=== PATIENT | female | born 1935 | race Caucasian/White ===

== ENCOUNTER 2017-01-09 20:20 | Inpatient (IN) | payer MEDICARE ==
[~2017-01-09] VITALS: Ht 160 cm; Wt 72.6 kg
--- NOTE | 2017-01-09 10:25 | NUR ---
Admission Note: Patient arrived on unit via EMS from [facility] ER. Report received from Osmani BOWERS. Patient is calm upon arrival. Vital signs T 97.5, BP 136/83, P 77 RR 18 Sp02 96% on RA. Patient is Alert and oriented to Self only. Patient denies behavior that happened at previous facility, kicking, spitting, eloping. Patient believes it is July 2001. This nurse and POWER TRANSFORMER INSPECTOR staff changed patient into hospital gown. 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 This nurse and POWER TRANSFORMER INSPECTOR offered patient food and drink, declined by patient. Patient oriented to environment and schedule. Helped patient back to bed, bed alarm activated, non slip socks in place. Dr. Martino notified of Admission. Will continue to monitor.
[2017-01-09 21:10] LABS: BASO # 0.1 x10^3/uL (0.0-0.2); BASO % 1 % (0-3); EOS # 0.2 x10^3/uL (0.0-0.7); EOS % 3 % (0-3); HEMATOCRIT 32.9 % (39.0-53.0); HEMOGLOBIN 10.7 g/dL (13.0-17.5); LYMPH # 1.1 x10^3/uL (1.0-4.8); LYMPH % 20 % (24-48); MEAN CORPUSCULAR HEMOGLOBIN 30 pg (25-35); MEAN CORPUSCULAR HGB CONC 33 g/dL (31-37); MEAN CORPUSCULAR VOLUME 91 fL (79-100); MONO # 1.1 x10^3/uL (0.0-1.1); MONO % 19 % (0-9); NEUT # 3.3 x10^3uL (1.8-7.7); NEUT % 58 % (31-73); PLATELET COUNT 198 x10^3/uL (140-400); RED BLOOD COUNT 3.63 x10^6/uL (4.30-5.70); WHITE BLOOD COUNT 5.8 x10^3/uL (4.0-11.0)
[2017-01-09 21:19] LABS: BACTERIA,URINE 0 /HPF (0-FEW); BILIRUBIN,URINE NEG (NEG); CLARITY,URINE HAZY; COLOR,URINE YELLOW; GLUCOSE,URINE NEG (NEG); NITRITE,URINE NEG (NEG); SQUAMOUS EPITHELIAL CELL,UR MANY /LPF; UROBILINOGEN,URINE 1 mg/dL (0.2 mg/dL)
[2017-01-09 21:20] LABS: HYALINE CASTS, URINE MANY /HPF
[2017-01-09 21:21] LABS: ALBUMIN 3.8 g/dL (3.4-5.0); ALBUMIN/GLOBULIN RATIO 0.8 (1.0-1.7); CALCIUM 8.9 mg/dL (8.5-10.1); GFR 32.4; MAGNESIUM 1.9 mg/dL (1.8-2.4); POTASSIUM 3.7 mmol/L (3.5-5.1); TOTAL BILIRUBIN 0.5 mg/dL (0.2-1.0); TOTAL PROTEIN 8.5 g/dL (6.4-8.2)
[2017-01-09] MEDS ORDERED: CYAN10005 PO (21:29)
[2017-01-09] MEDS ORDERED: DONE5TAB14 PO (21:29)
[2017-01-09] MEDS ORDERED: FURO40TA4 PO (21:30)
[2017-01-09] MEDS ORDERED: LEVO100T5 PO (21:32)
[2017-01-09] MEDS ORDERED: AMLO5TAB4 PO (21:44)
[2017-01-09] MEDS ORDERED: POLY255P PO (21:44)
[2017-01-09] MEDS ORDERED: POTA10TA5 PO (21:44)
[2017-01-09] MEDS ORDERED: OLAN5TAB5 PO (21:48)
[2017-01-09] MEDS ORDERED: HALO0.5T PO (21:48)
--- NOTE | 2017-01-09 23:00 | NUR ---
Behavior Intervention Response and Plan: BIRP Note: Behavior: Assumed Care of patient, patient located in Patient Room at shift change. Patient exhibited the following behavior Calm, Disorganized, Compliant. Brief assessment on rounds of vital signs, medication needs, lab studies, and pain. Treatment plan problems . Intervention: Patient assessed and the following interventions initiated safety checks 15 Minute Checks Cognitive Assessment , Head to toe Assessment , Medications. Response: After interactions and interventions patient responded in the following manner, Cooperative , Interactive ,Able to Focus on Task. Continue to assess behaviors and condition will continue to monitor throughout the shift as needed. Patient educated on ADL's, and hand hygiene. 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 Continue to assess patient for changes in above assessment. Monitor for medication needs, pain, and safety concerns. Hourly rounding performed to ensure safe environment.
[2017-01-09 23:34] VITALS: BP 136/83
--- NOTE | 2017-01-10 00:50 | EKG ---
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
--- NOTE | 2017-01-10 02:33 | NUR ---
Call recieved from Dr. Ojeda reguarding patients QTc. Dr. Ojeda reported to this nurse QTc was 524. Patient is also dehydrated and on several medications that can cause prolonged QT. Will notify this am.
--- NOTE | 2017-01-10 02:37 | PHYS DOC ---
Past History Past Medical History: Anemia, Arthritis, Constipation, CVA, Dementia, Heart Disease, Hypertension, TIA, Other Past Surgical History: Other Alcohol Use: None Drug Use: None Adult General Chief Complaint Chief Complaint: PSYCH EVALUATION HPI HPI Patient is a 81 year old female who presents for medical clearance for psychiatric admission. The patient is transferred from group home where she has made repeated attempts to run away, has been physically aggressive toward staff. She has no complaints here. She denies headache, vision changes, chest pain, shortness of breath, abdominal pain, nausea, vomiting, diarrhea, dysuria, extremity numbness/weakness. There is no history of trauma. Review of Systems Review of Systems Constitutional: Denies fever or chills Eyes: Denies change in visual acuity HENT: Denies nasal congestion or sore throat Respiratory: Denies cough or shortness of breath Cardiovascular: Denies chest pain or edema GI: Denies abdominal pain, nausea, vomiting, bloody stools or diarrhea : Denies dysuria or hematuria Musculoskeletal: Denies back pain or joint pain Integument: Denies rash or skin lesions Neurologic: Denies headache, focal weakness or sensory changes Psychiatric: reports aggression Allergies Allergies Allergies Coded Allergies Type Severity Reaction Last Updated Verified ibuprofen Allergy Unknown 01/09/17 Yes Physical Exam Physical Exam Constitutional: Well developed, well nourished, no acute distress, non-toxic appearance. HENT: Normocephalic, atraumatic, bilateral external ears normal, oropharynx moist, nose normal. Eyes: PERRLA, EOMI, conjunctiva normal, no discharge. Neck: supple, no stridor. Cardiovascular: RRR, no murmurs, no edema. Lungs & Thorax: LCTAB, no wheezing, no respiratory distress. Abdomen: soft, nontender, nondistended. Skin: Warm, dry, no erythema, no rash. Back: No tenderness. Extremities: No tenderness, no edema. Neurologic: Alert and oriented X 3, no facial droop, symmetric strength/ sensation to upper & lower extremities, no focal deficits noted. Psychologic: Affect normal, judgement normal, mood normal. Current Patient Data Vital Signs Vital Signs Date Time Temp Pulse Resp B/P (MAP) Pulse Ox O2 Delivery O2 Flow Rate FiO2 01/09/17 23:34 97.5 77 18 136/83 (100) 96 Room Air Lab Results Laboratory Tests Test 01/09/17 20:30 01/09/17 20:45 Urine Collection Type Unknown Urine Color Yellow Urine Clarity Hazy Urine pH 5.0 Urine Specific [place] 1.010 Urine Protein 30 mg/dl (NEG-TRACE) Urine Glucose (UA) Neg mg/dL (NEG) Urine Ketones (Stick) Neg mg/dL (NEG) Urine Blood Trace (NEG) Urine Nitrite Neg (NEG) Urine Bilirubin Neg (NEG) Urine Urobilinogen Dipstick 1 mg/dL (0.2 mg/dL) Urine Leukocyte Esterase Neg (NEG) Urine RBC 1-2 /HPF (0-2) Urine WBC 1-4 /HPF (0-4) Urine Squamous Epithelial Cells Many /LPF Urine Bacteria 0 /HPF (0-FEW) Urine Hyaline Casts Many /HPF Urine Mucus Marked /LPF White Blood Count 5.8 x10^3/uL (4.0-11.0) Red Blood Count 3.63 x10^6/uL (4.30-5.70) L Hemoglobin 10.7 g/dL (13.0-17.5) L Hematocrit 32.9 % (39.0-53.0) L Mean Corpuscular Volume 91 fL (79-100) Mean Corpuscular Hemoglobin 30 pg (25-35) Mean Corpuscular Hemoglobin Concent 33 g/dL (31-37) Red Cell Distribution Width 14.0 % (11.5-14.5) Platelet Count 198 x10^3/uL (140-400) Neutrophils (%) (Auto) 58 % (31-73) Lymphocytes (%) (Auto) 20 % (24-48) L Monocytes (%) (Auto) 19 % (0-9) H Eosinophils (%) (Auto) 3 % (0-3) Basophils (%) (Auto) 1 % (0-3) Neutrophils # (Auto) 3.3 x10^3uL (1.8-7.7) Lymphocytes # (Auto) 1.1 x10^3/uL (1.0-4.8) Monocytes # (Auto) 1.1 x10^3/uL (0.0-1.1) Eosinophils # (Auto) 0.2 x10^3/uL (0.0-0.7) Basophils # (Auto) 0.1 x10^3/uL (0.0-0.2) Sodium Level 141 mmol/L (136-145) Potassium Level 3.7 mmol/L (3.5-5.1) Chloride Level 100 mmol/L (98-107) Carbon Dioxide Level 29 mmol/L (21-32) Anion Gap 12 (6-14) Blood Urea Nitrogen 34 mg/dL (8-26) H Creatinine 2.0 mg/dL (0.7-1.3) H Estimated GFR (Cockcroft-Gault) 32.4 BUN/Creatinine Ratio 17 (6-20) Glucose Level 112 mg/dL (70-99) H Calcium Level 8.9 mg/dL (8.5-10.1) Magnesium Level 1.9 mg/dL (1.8-2.4) Total Bilirubin 0.5 mg/dL (0.2-1.0) Aspartate Amino Transferase (AST) 38 U/L (15-37) H Alanine Aminotransferase (ALT) 42 U/L (16-63) Alkaline Phosphatase 84 U/L (46-116) Total Protein 8.5 g/dL (6.4-8.2) H Albumin 3.8 g/dL (3.4-5.0) Albumin/Globulin Ratio 0.8 (1.0-1.7) L EKG EKG interpreted by me: NSR rate 78, no acute ST/T wave changes, Qtc prolonged 524 ms otherwise normal intervals, no ectopy.[] Radiology/Procedures Radiology/Procedures [] Course & Med Decision Making Course & Med Decision Making Pertinent Labs and Imaging studies reviewed. (See chart for details) The patient presents for medical clearance for psychiatric evaluation. She had creatinine of 2.0 without previous value available for comparison, otherwise no significant abnormality. She is being transferred to psychiatric unit in stable condition. I did communicate with the nurse on the unit regarding prolonged QT interval so she can notify the treating physician & this can be considered when prescribing medications. [] Dragon Disclaimer Dragon Disclaimer This chart was dictated in whole or in part using Voice Recognition software in a busy, high-work load, and often noisy Emergency Department environment. It may contain unintended and wholly unrecognized errors or omissions. Departure Departure: Impression: Primary Impression: Mental health disorder Disposition: 65 XFER TO PSYCH HOSP/UNIT Condition: STABLE DEMETRIUS ARREDONDO MD Jan 10, 2017 02:37
[2017-01-10 06:12] VITALS: BP 114/67
[2017-01-10] MEDS ORDERED: MULT1TAB52 PO (06:18)
[2017-01-10] MEDS: POTASSIUM CHLORIDE 10 MEQ TABLET.ER. PO SCH (08:07)
[2017-01-10] MEDS: MULTIVITAMIN with MINERAL TABLET. PO SCH (08:07)
[2017-01-10] MEDS: FUROSEMIDE 20 MG TABLET PO SCH (08:07)
[2017-01-10] MEDS: CYANOCOBALAMIN (VITAMIN B-12) 1,000 MCG TABLET. PO SCH (08:07)
[2017-01-10] MEDS: LEVOTHYROXINE 100 MCG TABLET PO SCH (08:07)
[2017-01-10] MEDS: POLYETHYLENE GLYCOL 3350 17 GM PACKET. PO SCH (08:08)
[2017-01-10] MEDS: amLODIPine BESYLATE 5 MG TABLET PO SCH (08:08)
--- NOTE | 2017-01-10 09:30 | NUR ---
THERAPEUTIC RECREATION GROUP NOTE TITLE :Fall Critter Painting ACTIVITY : Arts/ Crafts GOAL : Increase socialization, fine motor skills, creativity DURATION : 90 Minutes RESPONSE : Full participation. Pt. worked independently and was mostly quiet. She took breaks throughout and towards the end, she left without completing or with notice.
--- NOTE | 2017-01-10 09:40 | NUR ---
Behavior Intervention Response and Plan: BIRP Note: Behavior: Assumed Care of patient, patient located in Day Room at shift change. Patient exhibited the following behavior Interactive, Withdrawn, Disorganized. Brief assessment on rounds of vital signs, medication needs, lab studies, and pain. Treatment plan problems 1 & 2. Intervention: Patient assessed and the following interventions initiated safety checks 15 Minute Checks Cognitive Assessment , Head to toe Assessment , Medications. Response: After interactions and interventions patient responded in the following manner, Calm , Appropriate ,Compliant. Continue to assess behaviors and condition will continue to monitor throughout the shift as needed. Patient educated on ADL's, and hand hygiene. 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 Continue to assess patient for changes in above assessment. Monitor for medication needs, pain, and safety concerns. Hourly rounding performed to ensure safe environment.
--- NOTE | 2017-01-10 10:40 | NUR ---
Psychosocial Assessment completed w/PT's , Lars. Pt. was born and raised in [place] w/1 younger sister. No major trauma during childhood, no family history of alcohol/substance abuse or Dementia or other MHI. Pt. completed HS and Lars. They have 6 children: Maria Luisa, Vinh, Socrates, Dolores, Denis, and Yoni. 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 Pt. suffered from Breast Cancer in 2001 and then again in 2008. Pt. has suffered other major medical issues include several mini strokes and falls recently. Pt. was diagnosed w/Dementia 2 years ago and has resided at home w/her until recently. Pt's falls have led to Pts' admit to a skilled facility as Pt's can not physically care for Pt. during falls. Pt. will require placement at dc due to PT's continued decline. Pt. will need a [place] CARE completed by this SW and Pt's will begin working on a [place] Medicaid form. GOALS: Pt. states she wants to go home. Pt's 's goal is for her to transition to a LTCF. 1. Caring 2. Family support
--- NOTE | 2017-01-10 10:45 | NUR ---
SW reviewed Pt. insurance upon admit. Face sheet, CSNAP and Intake state Pt. has Medicare A, B, and No Part C. No auth required.
--- NOTE | 2017-01-10 11:30 | NUR ---
THERAPEUTIC RECREATION GROUP NOTE TITLE :Movement to Music: Flexibility ACTIVITY : Movement/ Exercise GOAL : Increase morale, attention, flexibility. Decrease stress/anxiety. DURATION : 30 Minutes RESPONSE : No participation
--- NOTE | 2017-01-10 14:30 | NUR ---
THERAPEUTIC RECREATION GROUP NOTE TITLE :Seasonal/ Holiday Leisure ACTIVITY : Leisure Education GOAL : Increase knowledge of leisure activities DURATION : 45 minutes RESPONSE : No participation
[2017-01-10 16:23] VITALS: BP 123/68
--- NOTE | 2017-01-10 20:00 | PDOC ---
Exam Liborio Demential Exam: Liborio Note: Please also refer to the separate dictated note~for this date of service dictated separately.~Patient seen individually. Discussed the patient with Nursing staff reviewed the chart.~Reviewed interim history and current functioning. Reviewed vital signs,~Labs/ Radiology~and current medications noted below. Continue current treatment with the changes noted in the dictated addendum note Assessment: Vital Signs: Vital Signs Date Time Temp Pulse Resp B/P (MAP) Pulse Ox O2 Delivery O2 Flow Rate FiO2 01/10/17 16:23 97.6 74 18 123/68 (86) 97 01/09/17 23:34 Room Air I&O Intake and Output 01/11/17 07:00 Intake Total 480 ml Balance 480 ml Intake Oral 480 ml Labs: Laboratory Tests Test 01/09/17 20:30 01/09/17 20:45 Urine Collection Type Unknown Urine Color Yellow Urine Clarity Hazy Urine pH 5.0 Urine Specific [place] 1.010 Urine Protein 30 mg/dl (NEG-TRACE) Urine Glucose (UA) Neg mg/dL (NEG) Urine Ketones (Stick) Neg mg/dL (NEG) Urine Blood Trace (NEG) Urine Nitrite Neg (NEG) Urine Bilirubin Neg (NEG) Urine Urobilinogen Dipstick 1 mg/dL (0.2 mg/dL) Urine Leukocyte Esterase Neg (NEG) Urine RBC 1-2 /HPF (0-2) Urine WBC 1-4 /HPF (0-4) Urine Squamous Epithelial Cells Many /LPF Urine Bacteria 0 /HPF (0-FEW) Urine Hyaline Casts Many /HPF Urine Mucus Marked /LPF White Blood Count 5.8 x10^3/uL (4.0-11.0) Red Blood Count 3.63 x10^6/uL (4.30-5.70) L Hemoglobin 10.7 g/dL (13.0-17.5) L Hematocrit 32.9 % (39.0-53.0) L Mean Corpuscular Volume 91 fL (79-100) Mean Corpuscular Hemoglobin 30 pg (25-35) Mean Corpuscular Hemoglobin Concent 33 g/dL (31-37) Red Cell Distribution Width 14.0 % (11.5-14.5) Platelet Count 198 x10^3/uL (140-400) Neutrophils (%) (Auto) 58 % (31-73) Lymphocytes (%) (Auto) 20 % (24-48) L Monocytes (%) (Auto) 19 % (0-9) H Eosinophils (%) (Auto) 3 % (0-3) Basophils (%) (Auto) 1 % (0-3) Neutrophils # (Auto) 3.3 x10^3uL (1.8-7.7) Lymphocytes # (Auto) 1.1 x10^3/uL (1.0-4.8) Monocytes # (Auto) 1.1 x10^3/uL (0.0-1.1) Eosinophils # (Auto) 0.2 x10^3/uL (0.0-0.7) Basophils # (Auto) 0.1 x10^3/uL (0.0-0.2) Sodium Level 141 mmol/L (136-145) Potassium Level 3.7 mmol/L (3.5-5.1) Chloride Level 100 mmol/L (98-107) Carbon Dioxide Level 29 mmol/L (21-32) Anion Gap 12 (6-14) Blood Urea Nitrogen 34 mg/dL (8-26) H Creatinine 2.0 mg/dL (0.7-1.3) H Estimated GFR (Cockcroft-Gault) 32.4 BUN/Creatinine Ratio 17 (6-20) Glucose Level 112 mg/dL (70-99) H Calcium Level 8.9 mg/dL (8.5-10.1) Magnesium Level 1.9 mg/dL (1.8-2.4) Iron Level 36 ug/dL (65-175) L Total Iron Binding Capacity 191 ug/dL (250-450) L Iron Saturation 19 % (15-34) Total Bilirubin 0.5 mg/dL (0.2-1.0) Aspartate Amino Transferase (AST) 38 U/L (15-37) H Alanine Aminotransferase (ALT) 42 U/L (16-63) Alkaline Phosphatase 84 U/L (46-116) Total Protein 8.5 g/dL (6.4-8.2) H Albumin 3.8 g/dL (3.4-5.0) Albumin/Globulin Ratio 0.8 (1.0-1.7) L Vitamin B12 Level 936 pg/mL (247-911) H Current Medications: Meds: Current Medications Amlodipine Besylate (Norvasc) 5 mg DAILY PO Last administered on 01/10/17 08:08 ; Start 01/10/17 at 09:00 Cyanocobalamin (Vitamin B-12) 1,000 mcg DAILY PO Last administered on 01/10/17 08:07; Start 01/10/17 at 09:00 Furosemide (Lasix) 20 mg DAILY PO Last administered on 01/10/17 08:07; Start at 09:00 Levothyroxine Sodium (Synthroid) 100 mcg DAILYAC PO Last administered on 08:07; Start 01/10/17 at 08:00 Polyethylene Glycol (miraLAX) 17 gm DAILY PO Last administered on 01/10/17 08: 08; Start 01/10/17 at 09:00 Multivitamins/ Calcium (Thera-M Plus) 1 tab DAILY PO Last administered on 08:07; Start 01/10/17 at 09:00 Potassium Chloride (Klor-Con) 10 meq DAILYWBKFT PO Last administered on 08:07; Start 01/10/17 at 08:00 Olanzapine (ZyPREXA ZYDIS) 2.5 mg PRN Q2HR PRN PO ANXIETY / AGITATION; Start at 18:45 Donepezil HCl (Aricept) 10 mg DAILY PO ; Start 01/11/17 at 09:00 Active Scripts Active Reported Multivitamins (Multivitamin) 1 Each Tablet 1 Tab PO DAILY Zyprexa Zydis (Olanzapine) 5 Mg Tab.rapdis 2.5 Mg PO PRN Q2HR PRN Klor-Con 10 (Potassium Chloride) 10 Meq Tablet.er 1 Tab PO DAILY Polyethylene Glycol 3350 255 Gm Powder 17 Gm PO DAILY Norvasc (Amlodipine Besylate) 5 Mg Tablet 5 Mg PO BID Levothyroxine Sodium 100 Mcg Tablet 100 Mcg PO DAILYAC Furosemide 40 Mg Tablet 40 Mg PO DAILY Vitamin B-12 (Cyanocobalamin (Vitamin B-12)) 1,000 Mcg Tablet 1,000 Mcg PO DAILY Donepezil Hcl 5 Mg Tab.rapdis 5 Mg PO QHS Diagnosis: Problems: (1) Mental health disorder ARA VANCE MD Jan 10, 2017 20:00
--- NOTE | 2017-01-10 21:30 | NUR ---
Behavior Intervention Response and Plan: BIRP Note: Behavior: Assumed Care of patient, patient located in Patient Room at shift change. Patient exhibited the following behavior Calm, Disorganized, Compliant. Brief assessment on rounds of vital signs, medication needs, lab studies, and pain. Treatment plan problems . Intervention: Patient assessed and the following interventions initiated safety checks 15 Minute Checks Cognitive Assessment , Head to toe Assessment , Medications. Response: After interactions and interventions patient responded in the following manner, Cooperative , Interactive ,Able to Focus on Task. Continue to assess behaviors and condition will continue to monitor throughout the shift as needed. Patient educated on ADL's, and hand hygiene. 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 Continue to assess patient for changes in above assessment. Monitor for medication needs, pain, and safety concerns. Hourly rounding performed to ensure safe environment.
[2017-01-11 03:07] LABS: HEMOGLOBIN A1C 4.8 % (4.8-5.6)
[2017-01-11] MEDS: LEVOTHYROXINE 100 MCG TABLET PO SCH (05:33)
[2017-01-11 06:00] VITALS: BP 138/98
[2017-01-11] MEDS: DONEPEZIL HCL 10 MG TABLET PO SCH (08:04)
[2017-01-11] MEDS: FUROSEMIDE 20 MG TABLET PO SCH (08:04)
[2017-01-11] MEDS: amLODIPine BESYLATE 5 MG TABLET PO SCH (08:05)
[2017-01-11] MEDS: POTASSIUM CHLORIDE 10 MEQ TABLET.ER. PO SCH (08:05)
[2017-01-11] MEDS: POLYETHYLENE GLYCOL 3350 17 GM PACKET. PO SCH (08:05)
[2017-01-11] MEDS: MULTIVITAMIN with MINERAL TABLET. PO SCH (08:05)
[2017-01-11] MEDS: CYANOCOBALAMIN (VITAMIN B-12) 1,000 MCG TABLET. PO SCH (08:05)
--- NOTE | 2017-01-11 09:00 | NUR ---
Behavior Intervention Response and Plan: BIRP Note: Behavior: Assumed Care of patient, patient located in Dining Room at shift change. Patient exhibited the following behavior Disorganized, Withdrawn, Resistive. Brief assessment on rounds of vital signs, medication needs, lab studies, and pain. Treatment plan problems 1 & 2. Intervention: Patient assessed and the following interventions initiated safety checks 15 Minute Checks Cognitive Assessment , Head to toe Assessment , Medications. Response: After interactions and interventions patient responded in the following manner, Calm , Appropriate ,Compliant. Continue to assess behaviors and condition will continue to monitor throughout the shift as needed. Patient educated on ADL's, and hand hygiene. 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 Continue to assess patient for changes in above assessment. Monitor for medication needs, pain, and safety concerns. Hourly rounding performed to ensure safe environment.
--- NOTE | 2017-01-11 11:30 | NUR ---
THERAPEUTIC RECREATION GROUP NOTE TITLE :Movement to Music: Strength ACTIVITY : Movement/ Exercise GOAL : Increase morale, attention, flexibility. Decrease stress/anxiety. DURATION : 30 Minutes RESPONSE : Moderate participation. Pt. followed along with most of the moves, to the best of her ability. She was alert and quiet the entire time.
--- NOTE | 2017-01-11 11:38 | NUR ---
Bedside swallow evaluation completed: Pt. initially cooperative and alert. Pt. self regulates bite size to less than 1/2 tsp for all consistencies. Hyolaryngeal excursion min-mildly reduced via palpation for puree and assume other consistencies, however pt became agitated w/ ST touching her. No s/s aspiration noted w/ nectar thick liquids via cup, puree and soft solids but immediate throat clearing w/ trials of thin liquids via cup. Soft solid trials were inefficient w/ prolonged chewing, oral residue and VERY small bite trials as pt limits to approximately 1/4 tsp bites. Also pt appears to have strong preference for sweet foods/liquids. Impressions: Mild-moderate oropharyngeal dysphagia w/ known history of dysphagia and aspiration pneumonia form prior facility and hospital. Current diet of puree and nectar thick liquids appear safe as well as most efficient. Currently pt not a candidate for videoswallow as she refuses PO trials frequently, especially if not sweet and becomes agitated w/ requests to eat or drink items when not her initiative. Recommendations: 1. Dysphagia I diet w/ nectar liquids, no straws. 2. General swallow precautions 3. ST f/u for dysphagia
[2017-01-11] MEDS ORDERED: SERTRALINE 25 MG TABLET. PO SCH (12:00)
--- NOTE | 2017-01-11 12:13 | NUR ---
per Dr. Sloan the zoloft 25mg daily dose is to start 01/12 0900.
--- NOTE | 2017-01-11 14:03 | NUR ---
SW met w/Pt's , Lars, to help complete a [place] Medicaid form. SW copied applicable documents and encouraged Lars to check the documents required sheet to ensure he sent in all information.
--- NOTE | 2017-01-11 14:15 | NUR ---
THERAPEUTIC RECREATION GROUP NOTE TITLE :Music Bingo ACTIVITY : Music, Cognitive Stimulation GOAL : Increase socialization, elevate mood, stimulate memory, Maintain or improve cognitive functioning DURATION : 60 minutes RESPONSE : Moderate participation. Pt. joined the group about 15 minutes late. She sang along to the songs but needed prompting to place chips in the correct spot. She did not appear to show too much interest but she smiled often while singing.
[2017-01-11 16:02] VITALS: BP 128/74
[2017-01-11] MEDS: PRENATAL MULTIVITAMIN TABLET. PO SCH (17:04)
--- NOTE | 2017-01-11 18:14 | HP ---
ADMIT DATE: 01/10/2017 This is a late entry on 01/10/2017 and covers the elements not covered in my initial note 01/10/2017. The patient was seen in the evening of 01/10/2017 for this evaluation. IDENTIFYING DATA: The patient is a 81-year-old female referred to us from [facility] by her primary care physician on account of worsening confusion, agitation, attempting to elope from the facility, becoming aggressive towards staff, when redirected attempted to hit staff, scratching spitting uncooperative, refusing meals, demanding. She had failed outpatient psychiatric interventions, was even more confused, referred for inpatient psychiatric stabilization. CHIEF COMPLAINT: "I have been here 3 weeks." HISTORY OF PRESENT ILLNESS: The patient has a history of dementia, Alzheimer's vascular type. She has been at [facility] for a short time, but she has been getting increasingly confused, agitated, aggressive, uncooperative, unmanageable. She has failed outpatient psychiatric interventions. She has had some sleep and appetite changes. No active suicidal or homicidal ideation. No clear history of bipolar disorder. PAST PSYCHIATRIC HISTORY: Positive for major neurocognitive disorder, vascular with delusion, depression, behavioral disturbance. PAST MEDICAL HISTORY: History of TIA/CVA, hypertension, hyperlipidemia, chronic constipation, dysphagia, and vitamin deficiency, repeated falls, heart disease, anemia, osteoarthritis, fracture with the brain, elongated QTC interval. DIET: Pureed and nectar thick liquids. ALLERGIES: MOTRIN. CODE STATUS: She is a full code. FAMILY HISTORY: Noncontributory. SOCIAL HISTORY: No history of alcohol, drug abuse, physical, sexual or elder abuse. She is not found to be a perpetrator. REACTION TO HOSPITALIZATION: The patient oblivious of this given the dementia. ASSETS: Supportive family. Stable living at the above nursing facility, though she may need alternate placement. REVIEW OF SYSTEMS: No CV, , pulmonary, eye, ENT system symptoms on review. Reliability poor. Ambulation impaired, in wheelchair. MENTAL STATUS EXAMINATION: Oriented to herself. Insight, judgment, recent and remote memory, attention, concentration, fund of knowledge poor, consistent with her diagnosis mentioned in my initial note. LABORATORY DATA: Reviewed. IMPRESSION: Major neurocognitive disorder, Alzheimer, vascular with depression, delusion, behavioral disturbance; anxiety disorder, unspecified; impulse control disorder, unspecified. Rest as above. PLAN: Admit to the geropsychiatry unit at [facility]. I will see the patient daily individually from a psychiatric standpoint, medical followup per Dr. Martino/Dr. Hicks. May consider adding Zoloft as an antidepressant and antianxiety agent. Continue Aricept 10 mg a day, Zyprexa was added p.r.n. The patient's Haldol was stopped due to her prolonged QTc per Dr. Martino. We will make further adjustments in the psychotropics as clinically indicated. Repeat EKG to ensure QTC is unremarkable. MAN Sharif VANCE MD DR: HUMPHREY/stacy JOB#: [id number] / [id number]
--- NOTE | 2017-01-11 18:42 | HP ---
ADMIT DATE: 01/09/2017 This was a delayed history and physical due to the patient being in bed yesterday. REASON FOR ADMISSION TO SENIOR BEHAVIORAL UNIT: This is a 81-year-old female who came from [facility] where she had multiple episodes of elopement with aggressive violent behavior towards the staff and wanting to go home. She pulled the staff's hair and was uncooperative. Previous to going to [facility], she was at home. She was requiring on one-on-one and also received one time a Haldol injection. She was sent to the Emergency Room on 01/08/2017. PAST MEDICAL HISTORY: Repeated falls, constipation, anemia, hypertension, hyperlipidemia, hypothyroidism, history of TIAs, dysphagia, heart disease, osteoarthritis, neoplasm, hyperkalemia, compression fracture of vertebra, also obstructive sleep apnea, coronary artery disease, In the breast, she had had breast cancer and had a recent fall. FAMILY HISTORY: Positive for diabetes. PAST SURGICAL HISTORY: She had a thyroidectomy in 2010. SOCIAL HISTORY: She was never a smoker, never used alcohol, enjoys coffee. She is currently and was living at home prior to going to Rehabilitation. MEDICATIONS: Reviewed and are available on the MAR. REVIEW OF SYSTEMS: The patient denies any problems currently. OBJECTIVE: VITAL SIGNS: Blood pressure 123/68, temperature 97.6, pulse 74, respirations 18, pulse ox is 97% on room air. Height 63 inches, weight 160 pounds. GENERAL: A 81-year-old frail appearing female who is confined to a wheelchair. HEENT: Her hearing is normal. Her eyes are clear. Pupils are small. She can read without glasses, nose was patent. Throat clear, tongue midline. NECK: Supple, without adenopathy. Thyroid was not enlarged. LUNGS: Clear to auscultation. CARDIOVASCULAR: Regular rhythm and rate. ABDOMEN: Soft, nontender. EXTREMITIES: With some pedal edema. MUSCULOSKELETAL: She does not pass to get up and go test. NEUROLOGIC: She does have a tremor. Cranial nerves: She is able to cooperate. Could not get the reflexes. LABORATORY DATA: Reviewed from the hospital as well as she had a CT of the abdomen and pelvis showing nothing of consequence. CT head without contrast showing mild atrophy and white matter disease. Her EKG, she had a QTc of 524 but had recently had a Haldol injection. ASSESSMENT: 1. Dementia with behavior disturbance. 2. Obstructive sleep apnea. 3. Osteoarthritis. 4. Frequent falls. 5. History of coronary artery disease. 6. History of breast cancer. 7. Normochromic normocytic anemia. 8. Iron deficiency anemia. 9. Chronic kidney disease stage III. 10. Prolonged QTc. PLAN: Treat her medical conditions and follow along with Dr. Sloan, adding a vitamin with iron deficiency and also prolonged QTc. ANTONIO MUJICA DO DR: OMAR/stacy JOB#: [id number] / [id number]
--- NOTE | 2017-01-11 19:42 | PDOC ---
Exam Liborio Demential Exam: Liborio Note: Please also refer to the separate dictated note~for this date of service dictated separately.~Patient seen individually. Discussed the patient with Nursing staff reviewed the chart.~Reviewed interim history and current functioning. Reviewed vital signs,~Labs/ Radiology~and current medications noted below. Continue current treatment with the changes noted in the dictated addendum note Assessment: Vital Signs: Vital Signs Date Time Temp Pulse Resp B/P (MAP) Pulse Ox O2 Delivery O2 Flow Rate FiO2 01/11/17 16:02 97.6 75 20 128/74 (92) 96 01/09/17 23:34 Room Air I&O Intake and Output 01/12/17 07:00 Intake Total 960 ml Balance 960 ml Intake Oral 960 ml Current Medications: Meds: Current Medications Amlodipine Besylate (Norvasc) 5 mg DAILY PO Last administered on 01/11/17 08:05 ; Start 01/10/17 at 09:00 Cyanocobalamin (Vitamin B-12) 1,000 mcg DAILY PO Last administered on 01/11/17 08:05; Start 01/10/17 at 09:00 Furosemide (Lasix) 20 mg DAILY PO Last administered on 01/11/17 08:04; Start at 09:00 Levothyroxine Sodium (Synthroid) 100 mcg DAILYAC PO Last administered on 05:33; Start 01/10/17 at 08:00 Polyethylene Glycol (miraLAX) 17 gm DAILY PO Last administered on 01/11/17 08: 05; Start 01/10/17 at 09:00 Multivitamins/ Calcium (Thera-M Plus) 1 tab DAILY PO Last administered on 08:05; Start 01/10/17 at 09:00 Potassium Chloride (Klor-Con) 10 meq DAILYWBKFT PO Last administered on 08:05; Start 01/10/17 at 08:00 Olanzapine (ZyPREXA ZYDIS) 2.5 mg PRN Q2HR PRN PO ANXIETY / AGITATION; Start at 18:45 Donepezil HCl (Aricept) 10 mg DAILY PO Last administered on 01/11/17 08:04; Start 01/11/17 at 09:00 Sertraline HCl (Zoloft) 25 mg DAILY PO ; Start 01/11/17 at 12:00; Stop 01/11/17 at 12:13; Status DC Sertraline HCl (Zoloft) 25 mg DAILY PO ; Start 01/12/17 at 09:00 Prenat Multivit/ [place]/Iron/Folic Ac (Multivitamin ) 1 tab DAILYBFRSUP PO Last administered on 01/11/17t 17:04; Start 01/11/17 at 17:00 Active Scripts Active Reported Multivitamins (Multivitamin) 1 Each Tablet 1 Tab PO DAILY Zyprexa Zydis (Olanzapine) 5 Mg Tab.rapdis 2.5 Mg PO PRN Q2HR PRN Klor-Con 10 (Potassium Chloride) 10 Meq Tablet.er 1 Tab PO DAILY Polyethylene Glycol 3350 255 Gm Powder 17 Gm PO DAILY Norvasc (Amlodipine Besylate) 5 Mg Tablet 5 Mg PO BID Levothyroxine Sodium 100 Mcg Tablet 100 Mcg PO DAILYAC Furosemide 40 Mg Tablet 40 Mg PO DAILY Vitamin B-12 (Cyanocobalamin (Vitamin B-12)) 1,000 Mcg Tablet 1,000 Mcg PO DAILY Donepezil Hcl 5 Mg Tab.rapdis 5 Mg PO QHS Diagnosis: Problems: (1) Mental health disorder ARA VANCE MD Jan 11, 2017 19:42
--- NOTE | 2017-01-11 20:00 | NUR ---
Behavior Intervention Response and Plan: BIRP Note: Behavior: Assumed Care of patient, patient located in Day Room at shift change. Patient exhibited the following behavior Disorganized, Withdrawn, Cooperative. Brief assessment on rounds of vital signs, medication needs, lab studies, and pain. Treatment plan problems 1 & 2. Intervention: Patient assessed and the following interventions initiated safety checks 15 Minute Checks Cognitive Assessment , Head to toe Assessment , Medications. Response: After interactions and interventions patient responded in the following manner, Calm , Appropriate ,Compliant. Continue to assess behaviors and condition will continue to monitor throughout the shift as needed. Patient educated on ADL's, and hand hygiene. Plan: Continue to monitor Master Treatment Plan for patient's progress toward short term goals of Decreased Agitation, Decreased Aggression, long term care phlebotomist goals to return to previous living setting vs placement. Continue to assess patient for changes in above assessment. Monitor for medication needs, pain, and safety concerns. Hourly rounding performed to ensure safe environment.
[2017-01-12 06:01] VITALS: BP 125/79
[2017-01-12] MEDS: LEVOTHYROXINE 100 MCG TABLET PO SCH (07:35)
[2017-01-12] MEDS: CYANOCOBALAMIN (VITAMIN B-12) 1,000 MCG TABLET. PO SCH (07:35)
[2017-01-12] MEDS: MULTIVITAMIN with MINERAL TABLET. PO SCH (07:35)
[2017-01-12] MEDS: DONEPEZIL HCL 10 MG TABLET PO SCH (07:35)
[2017-01-12] MEDS: amLODIPine BESYLATE 5 MG TABLET PO SCH (07:36)
[2017-01-12] MEDS: POTASSIUM CHLORIDE 10 MEQ TABLET.ER. PO SCH (07:36)
[2017-01-12] MEDS: FUROSEMIDE 20 MG TABLET PO SCH (07:36)
[2017-01-12] MEDS: POLYETHYLENE GLYCOL 3350 17 GM PACKET. PO SCH (07:36)
[2017-01-12] MEDS: SERTRALINE 25 MG TABLET. PO SCH (07:37)
--- NOTE | 2017-01-12 09:00 | NUR ---
THERAPEUTIC RECREATION GROUP NOTE TITLE :Group Counting ACTIVITY : Activities and Games GOAL : Increase social interaction, communication. Maintain or improve mental functioning. Decrease restlessness DURATION : 60 minutes RESPONSE : No participation.
--- NOTE | 2017-01-12 09:00 | NUR ---
Behavior Intervention Response and Plan: BIRP Note: Behavior: Assumed Care of patient, patient located in Dining Room at shift change. Patient exhibited the following behavior Drowsy, Withdrawn, Disorganized. Brief assessment on rounds of vital signs, medication needs, lab studies, and pain. Treatment plan problems 1 & 2. Intervention: Patient assessed and the following interventions initiated safety checks 15 Minute Checks Cognitive Assessment , Head to toe Assessment , Medications. Response: After interactions and interventions patient responded in the following manner, Calm , Appropriate ,Compliant. Continue to assess behaviors and condition will continue to monitor throughout the shift as needed. Patient educated on ADL's, and hand hygiene. Plan: Continue to monitor Master Treatment Plan for patient's progress toward short term goals of Decreased Agitation, Medication Compliance, superintendent terminal goals to return to previous living setting vs placement. Continue to assess patient for changes in above assessment. Monitor for medication needs, pain, and safety concerns. Hourly rounding performed to ensure safe environment.
--- NOTE | 2017-01-12 10:49 | EKG ---
[address] [address] Test Date: 2017-01-12 Test Time: 10:28:39 Pat Name: JOMAR ARANA Department: Room: [facility] Gender: M Director Religious Education: JEANNETTE : 1935 Requested By: ARA VANCE Order Number: [id number] Reading MD: Misha Melara Measurements Intervals [place] Rate: 69 P: -9 MO: 172 QRS: -11 QRSD: 86 T: -6 QT: 420 QTc: 452 Interpretive Statements SINUS RHYTHM NON-SPECIFIC ST/T CHANGES Electronically Signed On 01-12-2017 15:38:18 CDT by Misha Melara
--- NOTE | 2017-01-12 11:30 | NUR ---
THERAPEUTIC RECREATION GROUP NOTE TITLE :Movement to Music: Flexibility- In the Dining Room! ACTIVITY : Movement/ Exercise GOAL : Increase morale, attention, flexibility. Decrease stress/anxiety. DURATION : 30 Minutes RESPONSE : No participation
--- NOTE | 2017-01-12 14:20 | NUR ---
THERAPEUTIC RECREATION GROUP NOTE TITLE :Higher or Lower ACTIVITY : Activities and Games GOAL : Increase social interaction, problem solving. Maintain or improve mental functioning. Decrease restlessness DURATION : 75 minutes RESPONSE : No participation
--- NOTE | 2017-01-12 14:47 | NUR ---
Group Note [facility] Group Type: Horse Shoes Anyone?! Related skills the game requires to personal life experiences. Start Time: 1:30pm End Time: 2:15pm Problem: Depression Purpose: Learn Coping Skills Level of Participation: High Behaviors or Symptoms Observed: Pt. initially covered self w/blanket Interventions: Directed Focus, problem solving, validation, social skills, reminisce Response: Pt. smiling, socializing w/SW and peers, as Pt. "warmed up" the blanket was removed! Plan: continue to follow up and encourage participation
[2017-01-12 15:46] VITALS: BP 123/86
--- NOTE | 2017-01-12 15:52 | NUR ---
BETSY emailed [facility] to [facility] for review.
--- NOTE | 2017-01-12 16:00 | NUR ---
ACTIVITY THERAPY ASSESSMENT Completed based on observation and interview. Pt. attempting to get into another patient's bed. She was redirected and encouraged to stay up until dinner. She was agreeable to meet with GEODETIC SURVEYOR TECHNOLOGIST to complete assessment; however, she was very tired. Appearing to fall asleep in mid sentence. Pt. stated she has 6 children and one grandchild. Pt. did not come up with things she enjoys but did answer yes to a list from GEODETIC SURVEYOR TECHNOLOGIST. Pt. will participate in arts and crafts, music, and exercise groups. She needs encouragement, demonstration, and prompting. She often takes breaks and has minimal interaction with others. Pt. has been sleepy the last couple days. Initial goal aimed to increase socialization and time management: Pt. will participate in at least two groups a day.
--- NOTE | 2017-01-12 16:19 | PN ---
DATE: 01/11/2017 This note covers elements not covered in my initial note of 01/11/2017. SUBJECTIVE: The patient was seen individually on 01/11/2017. She was staffed at treatment team meeting in the morning of 01/11/2017. Further background history revealed frequent falls at home. states he is small and he is unable to take care of the patient consequent to a falls and that she was placed at [facility]. She slept 7-3/4 hours, confused, will need placement in [place] per social service staff. REVIEW OF SYSTEMS: Ambulation impaired. No CV, , pulmonary, eye, ENT system symptoms on review. Reliability poor. MENTAL STATUS EXAM: Oriented to herself. Insight, judgment, recent and remote memory, attention, concentration, fund of knowledge poor, consistent with her diagnoses as mentioned in my initial note. IMPRESSION: Major neurocognitive disorder, Alzheimer, vascular with depression, delusion and behavioral disturbance; anxiety disorder, unspecified; impulse control disorder, unspecified. Rest diagnoses unchanged. PLAN: Check EKG. If the QTC is back to normal, start Zoloft 25 mg a day. Continue Aricept 10 mg a day, Zyprexa p.r.n. Adjust further as clinically indicated. Reviewed drug interactions and risk/benefit ratio favors no further change other than noted above. ARA VANCE MD DR: HUMPHREY/stacy JOB#: [id number] / [id number]
[2017-01-12] MEDS: PRENATAL MULTIVITAMIN TABLET. PO SCH (17:03)
--- NOTE | 2017-01-12 18:28 | NUR ---
Patient was found on the floor in another patient's room. She states that she slipped out of the chair, no complaints of injuries or pain. VS obtained 112/74, 98%, 96bpm, 18rpm. Patient assisted into wheelchair, then into her bed.
--- NOTE | 2017-01-12 20:40 | PDOC ---
Exam Liborio Demential Exam: Liborio Note: Please also refer to the separate dictated note~for this date of service dictated separately.~Patient seen individually. Discussed the patient with Nursing staff reviewed the chart.~Reviewed interim history and current functioning. Reviewed vital signs,~Labs/ Radiology~and current medications noted below. Continue current treatment with the changes noted in the dictated addendum note Assessment: Vital Signs: Vital Signs Date Time Temp Pulse Resp B/P (MAP) Pulse Ox O2 Delivery O2 Flow Rate FiO2 01/12/17 15:46 97.3 48 19 123/86 (98) 94 01/12/17 06:01 Room Air I&O Intake and Output 01/13/17 07:00 Intake Total 630 ml Balance 630 ml Intake Oral 630 ml Current Medications: Meds: Current Medications Amlodipine Besylate (Norvasc) 5 mg DAILY PO Last administered on 01/12/17 07:36 ; Start 01/10/17 at 09:00 Cyanocobalamin (Vitamin B-12) 1,000 mcg DAILY PO Last administered on 01/12/17 07:35; Start 01/10/17 at 09:00 Furosemide (Lasix) 20 mg DAILY PO Last administered on 01/12/17 07:36; Start at 09:00 Levothyroxine Sodium (Synthroid) 100 mcg DAILYAC PO Last administered on 07:35; Start 01/10/17 at 08:00 Polyethylene Glycol (miraLAX) 17 gm DAILY PO Last administered on 01/12/17 07: 36; Start 01/10/17 at 09:00 Multivitamins/ Calcium (Thera-M Plus) 1 tab DAILY PO Last administered on 07:35; Start 01/10/17 at 09:00; Stop 01/12/17 at 16:04; Status DC Potassium Chloride (Klor-Con) 10 meq DAILYWBKFT PO Last administered on 07:36; Start 01/10/17 at 08:00 Olanzapine (ZyPREXA ZYDIS) 2.5 mg PRN Q2HR PRN PO ANXIETY / AGITATION; Start at 18:45 Donepezil HCl (Aricept) 10 mg DAILY PO Last administered on 01/12/17 07:35; Start 01/11/17 at 09:00 Sertraline HCl (Zoloft) 25 mg DAILY PO ; Start 01/11/17 at 12:00; Stop 01/11/17 at 12:13; Status DC Sertraline HCl (Zoloft) 25 mg DAILY PO Last administered on 01/12/17 07:37; Start 01/12/17 at 09:00 Prenat Multivit/ [place]/Iron/Folic Ac (Multivitamin ) 1 tab DAILYBFRSUP PO Last administered on 01/12/17 17:03; Start 01/11/17 at 17:00 Active Scripts Active Reported Multivitamins (Multivitamin) 1 Each Tablet 1 Tab PO DAILY Zyprexa Zydis (Olanzapine) 5 Mg Tab.rapdis 2.5 Mg PO PRN Q2HR PRN Klor-Con 10 (Potassium Chloride) 10 Meq Tablet.er 1 Tab PO DAILY Polyethylene Glycol 3350 255 Gm Powder 17 Gm PO DAILY Norvasc (Amlodipine Besylate) 5 Mg Tablet 5 Mg PO BID Levothyroxine Sodium 100 Mcg Tablet 100 Mcg PO DAILYAC Furosemide 40 Mg Tablet 40 Mg PO DAILY Vitamin B-12 (Cyanocobalamin (Vitamin B-12)) 1,000 Mcg Tablet 1,000 Mcg PO DAILY Donepezil Hcl 5 Mg Tab.rapdis 5 Mg PO QHS Diagnosis: Problems: (1) Mental health disorder ARA VANCE MD Jan 12, 2017 20:40
--- NOTE | 2017-01-12 21:06 | NUR ---
Behavior Intervention Response and Plan: BIRP Note: Behavior: Assumed Care of patient, patient located in Day Room at shift change. Patient exhibited the following behavior Calm, Withdrawn, Disorganized. Brief assessment on rounds of vital signs, medication needs, lab studies, and pain. Treatment plan problems 1 & 2. Intervention: Patient assessed and the following interventions initiated safety checks 15 Minute Checks Cognitive Assessment , Head to toe Assessment , Medications. Response: After interactions and interventions patient responded in the following manner, Calm , Appropriate ,Compliant. Continue to assess behaviors and condition will continue to monitor throughout the shift as needed. Patient educated on ADL's, and hand hygiene. Plan: Continue to monitor Master Treatment Plan for patient's progress toward short term goals of Decreased Agitation, Medication Compliance, termite control servicer goals to return to previous living setting vs placement. Continue to assess patient for changes in above assessment. Monitor for medication needs, pain, and safety concerns. Hourly rounding performed to ensure safe environment.
--- NOTE | 2017-01-13 02:42 | PN ---
DATE: 01/11/2017 This late entry 01/11/2017 covers elements not covered in my initial note of 01/11/2017 SUBJECTIVE: The patient was staffed with treatment team meeting morning of 01/11/2017, seen individually evening of 01/11/2017. The patient remains confused. At the treatment team meeting reviewed history of frequent falls at home, sleeping about 7-3/4 hours. REVIEW OF SYSTEMS: Ambulation impaired, in a wheelchair. No CV, , pulmonary, eye system symptoms on review. Reliability poor. MENTAL STATUS EXAM: Oriented to herself. Insight, judgment, recent and remote memory, attention, concentration, fund of knowledge poor, consistent with her diagnosis mentioned in my initial note. PLAN: Continue current psychotropics. Start Zoloft 25 mg a day. Review drug interactions, risk/benefit ratio favors no further change. MAN Sharif VANCE MD DR: HUMPHREY/stacy JOB#: [id number] / [id number]
[2017-01-13 05:57] VITALS: BP 112/68
[2017-01-13] MEDS: POLYETHYLENE GLYCOL 3350 17 GM PACKET. PO SCH (07:49)
[2017-01-13] MEDS: CYANOCOBALAMIN (VITAMIN B-12) 1,000 MCG TABLET. PO SCH (07:49)
[2017-01-13] MEDS: SERTRALINE 25 MG TABLET. PO SCH (07:49)
[2017-01-13] MEDS: amLODIPine BESYLATE 5 MG TABLET PO SCH (07:50)
[2017-01-13] MEDS: LEVOTHYROXINE 100 MCG TABLET PO SCH (07:52)
[2017-01-13] MEDS: FUROSEMIDE 20 MG TABLET PO SCH (07:53)
[2017-01-13] MEDS: DONEPEZIL HCL 10 MG TABLET PO SCH (07:53)
[2017-01-13] MEDS: POTASSIUM CHLORIDE 10 MEQ TABLET.ER. PO SCH (07:53)
--- NOTE | 2017-01-13 08:20 | NUR ---
Behavior Intervention Response and Plan: BIRP Note: Behavior: Assumed Care of patient, patient located in Dining Room at shift change. Patient exhibited the following behavior Calm, Disorganized, Compliant. Brief assessment on rounds of vital signs, medication needs, lab studies, and pain. Treatment plan problems . Intervention: Patient assessed and the following interventions initiated safety checks 15 Minute Checks Cognitive Assessment , Head to toe Assessment , Medications. Response: After interactions and interventions patient responded in the following manner, Drowsy , Withdrawn ,Compliant. Continue to assess behaviors and condition will continue to monitor throughout the shift as needed. Patient educated on ADL's, and hand hygiene. Plan: Continue to monitor Master Treatment Plan for patient's progress toward short term goals of Improved Mood, Medication Compliance, care home goals to return to previous living setting vs placement. Continue to assess patient for changes in above assessment. Monitor for medication needs, pain, and safety concerns. Hourly rounding performed to ensure safe environment.
[2017-01-13 17:22] VITALS: BP 125/84
[2017-01-13] MEDS: PRENATAL MULTIVITAMIN TABLET. PO SCH (17:53)
[2017-01-13] MEDS: MIRTAZAPINE 7.5 MG TABLET. PO SCH (19:47)
--- NOTE | 2017-01-13 22:19 | NUR ---
Behavior Intervention Response and Plan: BIRP Note: Behavior: Assumed Care of patient, patient located in Day Room at shift change. Patient exhibited the following behavior Calm, Disorganized, Compliant. Brief assessment on rounds of vital signs, medication needs, lab studies, and pain. Treatment plan problems 1-2. Intervention: Patient assessed and the following interventions initiated safety checks 15 Minute Checks Cognitive Assessment , Head to toe Assessment , Medications. Response: After interactions and interventions patient responded in the following manner, Drowsy , Withdrawn ,Compliant. Continue to assess behaviors and condition will continue to monitor throughout the shift as needed. Patient educated on ADL's, and hand hygiene. Plan: Continue to monitor Master Treatment Plan for patient's progress toward short term goals of Improved Mood, Medication Compliance, senior care goals to return to previous living setting vs placement. Continue to assess patient for changes in above assessment. Monitor for medication needs, pain, and safety concerns. Hourly rounding performed to ensure safe environment.
--- NOTE | 2017-01-13 23:10 | PDOC ---
Exam Liborio Demential Exam: Liborio Note: Please also refer to the separate dictated note~for this date of service dictated separately.~Patient seen individually. Discussed the patient with Nursing staff reviewed the chart.~Reviewed interim history and current functioning. Reviewed vital signs,~Labs/ Radiology~and current medications noted below. Continue current treatment with the changes noted in the dictated addendum note Assessment: Vital Signs: Vital Signs Date Time Temp Pulse Resp B/P (MAP) Pulse Ox O2 Delivery O2 Flow Rate FiO2 01/13/17 17:22 97.4 72 18 125/84 (98) 97 01/12/17 06:01 Room Air I&O Intake and Output 01/14/17 07:00 Intake Total 590 ml Balance 590 ml Intake Oral 590 ml Current Medications: Meds: Current Medications Amlodipine Besylate (Norvasc) 5 mg DAILY PO Last administered on 01/13/17 07:50 ; Start 01/10/17 at 09:00 Cyanocobalamin (Vitamin B-12) 1,000 mcg DAILY PO Last administered on 01/13/17 07:49; Start 01/10/17 at 09:00 Furosemide (Lasix) 20 mg DAILY PO Last administered on 01/13/17 07:53; Start at 09:00 Levothyroxine Sodium (Synthroid) 100 mcg DAILYAC PO Last administered on 07:52; Start 01/10/17 at 08:00 Polyethylene Glycol (miraLAX) 17 gm DAILY PO Last administered on 01/13/17 07: 49; Start 01/10/17 at 09:00 Multivitamins/ Calcium (Thera-M Plus) 1 tab DAILY PO Last administered on 07:35; Start 01/10/17 at 09:00; Stop 01/12/17 at 16:04; Status DC Potassium Chloride (Klor-Con) 10 meq DAILYWBKFT PO Last administered on 07:53; Start 01/10/17 at 08:00 Olanzapine (ZyPREXA ZYDIS) 2.5 mg PRN Q2HR PRN PO ANXIETY / AGITATION; Start at 18:45 Donepezil HCl (Aricept) 10 mg DAILY PO Last administered on 01/13/17 07:53; Start 01/11/17 at 09:00; Stop 01/13/17 at 18:43; Status DC Sertraline HCl (Zoloft) 25 mg DAILY PO ; Start 01/11/17 at 12:00; Stop 01/11/17 at 12:13; Status DC Sertraline HCl (Zoloft) 25 mg DAILY PO Last administered on 01/13/17 07:49; Start 01/12/17 at 09:00 Prenat Multivit/ [place]/Iron/Folic Ac (Multivitamin ) 1 tab DAILYBFRSUP PO Last administered on 01/13/17 17:53; Start 01/11/17 at 17:00 Mirtazapine (Remeron) 7.5 mg QHS PO Last administered on 01/13/17 19:47; Start 01/13/17 at 21:00 Active Scripts Active Reported Multivitamins (Multivitamin) 1 Each Tablet 1 Tab PO DAILY Zyprexa Zydis (Olanzapine) 5 Mg Tab.rapdis 2.5 Mg PO PRN Q2HR PRN Klor-Con 10 (Potassium Chloride) 10 Meq Tablet.er 1 Tab PO DAILY Polyethylene Glycol 3350 255 Gm Powder 17 Gm PO DAILY Norvasc (Amlodipine Besylate) 5 Mg Tablet 5 Mg PO BID Levothyroxine Sodium 100 Mcg Tablet 100 Mcg PO DAILYAC Furosemide 40 Mg Tablet 40 Mg PO DAILY Vitamin B-12 (Cyanocobalamin (Vitamin B-12)) 1,000 Mcg Tablet 1,000 Mcg PO DAILY Donepezil Hcl 5 Mg Tab.rapdis 5 Mg PO QHS Diagnosis: Problems: (1) Mental health disorder ARA VANCE MD Jan 13, 2017 23:10
--- NOTE | 2017-01-14 01:50 | PN ---
DATE: 01/12/2017 PSYCHIATRIC PROGRESS NOTE This late 01/12/2017, covers elements not covered in my initial note of 01/12/2017. SUBJECTIVE: I met with the patient evening of 01/12/2017. The patient has been quite withdrawn and oral intake is somewhat poor. After I met with her the evening of 01/12/2017, she put herself on the floor in her room, no injury noted. EKG shows QTC is back to normal. REVIEW OF SYSTEMS: No CV, , pulmonary, eye system symptoms on review. Reliability poor. Ambulation impaired, in a wheelchair. MENTAL STATUS EXAM: Oriented to herself. Insight, judgment, recent and remote memory, attention, concentration, fund of knowledge poor, consistent with her diagnosis mentioned in my initial note. LABORATORY DATA: Reviewed. PLAN: Continue current psychotropics, reviewed drug interactions risk/benefit ratio favors no further change. MAN Sharif VANCE MD DR: HUMPHREY/stacy JOB#: [id number] / [id number]
[2017-01-14 06:08] VITALS: BP 109/69
[2017-01-14] MEDS: SERTRALINE 25 MG TABLET. PO SCH (07:52)
[2017-01-14] MEDS: FUROSEMIDE 20 MG TABLET PO SCH (07:52)
[2017-01-14] MEDS: CYANOCOBALAMIN (VITAMIN B-12) 1,000 MCG TABLET. PO SCH (07:52)
[2017-01-14] MEDS: POTASSIUM CHLORIDE 10 MEQ TABLET.ER. PO SCH (07:52)
[2017-01-14] MEDS: LEVOTHYROXINE 100 MCG TABLET PO SCH (07:53)
[2017-01-14] MEDS: amLODIPine BESYLATE 5 MG TABLET PO SCH (07:53)
[2017-01-14] MEDS: POLYETHYLENE GLYCOL 3350 17 GM PACKET. PO SCH (07:53)
--- NOTE | 2017-01-14 08:30 | NUR ---
Behavior Intervention Response and Plan: BIRP Note: Behavior: Assumed Care of patient, patient located in Dining Room at shift change. Patient exhibited the following behavior Calm, Irritable, Compliant. Brief assessment on rounds of vital signs, medication needs, lab studies, and pain. Treatment plan problems . Intervention: Patient assessed and the following interventions initiated safety checks 15 Minute Checks Head to toe Assessment , Cognitive Assessment , Medications. Response: After interactions and interventions patient responded in the following manner, Drowsy , Compliant ,Cooperative. Continue to assess behaviors and condition will continue to monitor throughout the shift as needed. Patient educated on ADL's, and hand hygiene. 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 Continue to assess patient for changes in above assessment. Monitor for medication needs, pain, and safety concerns. Hourly rounding performed to ensure safe environment.
--- NOTE | 2017-01-14 15:34 | NUR ---
Patient is exit seeking. Sitting by South exit door. Patient tried to exit when this nurse came back on unit.
--- NOTE | 2017-01-14 15:35 | NUR ---
Patient very withdrawn today. Only talks to nurse. Patient is frowning and covering head with blanket. Calm and compliant otherwise.
[2017-01-14 16:53] VITALS: BP 116/71
[2017-01-14] MEDS: PRENATAL MULTIVITAMIN TABLET. PO SCH (17:54)
[2017-01-14] MEDS ORDERED: MAGNESIUM HYDROXIDE 2,400 MG/30 ML ORAL.SUSP. PO PRN (18:00)
--- NOTE | 2017-01-14 20:07 | PDOC ---
Exam Liborio Demential Exam: Liborio Note: Please also refer to the separate dictated note~for this date of service dictated separately.~Patient seen individually. Discussed the patient with Nursing staff reviewed the chart.~Reviewed interim history and current functioning. Reviewed vital signs,~Labs/ Radiology~and current medications noted below. Continue current treatment with the changes noted in the dictated addendum note Assessment: Vital Signs: Vital Signs Date Time Temp Pulse Resp B/P (MAP) Pulse Ox O2 Delivery O2 Flow Rate FiO2 01/14/17 16:53 98.0 89 22 116/71 (86) 96 01/12/17 06:01 Room Air I&O Intake and Output 01/15/17 07:00 Intake Total 720 ml Balance 720 ml Intake Oral 720 ml Current Medications: Meds: Current Medications Amlodipine Besylate (Norvasc) 5 mg DAILY PO Last administered on 01/14/17 07: 53; Start 01/10/17 at 09:00 Cyanocobalamin (Vitamin B-12) 1,000 mcg DAILY PO Last administered on 07:52; Start 01/10/17 at 09:00 Furosemide (Lasix) 20 mg DAILY PO Last administered on 01/14/17 07:52; Start 01/10/17 at 09:00 Levothyroxine Sodium (Synthroid) 100 mcg DAILYAC PO Last administered on 07:53; Start 01/10/17 at 08:00 Polyethylene Glycol (miraLAX) 17 gm DAILY PO Last administered on 01/14/17 07: 53; Start 01/10/17 at 09:00 Multivitamins/ Calcium (Thera-M Plus) 1 tab DAILY PO Last administered on 07:35; Start 01/10/17 at 09:00; Stop 01/12/17 at 16:04; Status DC Potassium Chloride (Klor-Con) 10 meq DAILYWBKFT PO Last administered on 07:52; Start 01/10/17 at 08:00 Olanzapine (ZyPREXA ZYDIS) 2.5 mg PRN Q2HR PRN PO ANXIETY / AGITATION; Start at 18:45 Donepezil HCl (Aricept) 10 mg DAILY PO Last administered on 01/13/17 07:53; Start 01/11/17 at 09:00; Stop 01/13/17 at 18:43; Status DC Sertraline HCl (Zoloft) 25 mg DAILY PO ; Start 01/11/17 at 12:00; Stop 01/11/17 at 12:13; Status DC Sertraline HCl (Zoloft) 25 mg DAILY PO Last administered on 01/14/17 07:52; Start 01/12/17 at 09:00; Stop 01/14/17 at 17:42; Status DC Prenat Multivit/ [place]/Iron/Folic Ac (Multivitamin ) 1 tab DAILYBFRSUP PO Last administered on 01/14/17 17:54; Start 01/11/17 at 17:00 Mirtazapine (Remeron) 7.5 mg QHS PO Last administered on 01/13/17 19:47; Start 01/13/17 at 21:00 Bupropion HCl (Wellbutrin Xl) 150 mg DAILY PO ; Start 01/15/17 at 09:00 Magnesium Hydroxide (Milk Of Magnesia) 2,400 mg PRN DAILY PRN PO CONSTIPATION; Start 01/14/17 at 18:00 Active Scripts Active Reported Multivitamins (Multivitamin) 1 Each Tablet 1 Tab PO DAILY Zyprexa Zydis (Olanzapine) 5 Mg Tab.rapdis 2.5 Mg PO PRN Q2HR PRN Klor-Con 10 (Potassium Chloride) 10 Meq Tablet.er 1 Tab PO DAILY Polyethylene Glycol 3350 255 Gm Powder 17 Gm PO DAILY Norvasc (Amlodipine Besylate) 5 Mg Tablet 5 Mg PO BID Levothyroxine Sodium 100 Mcg Tablet 100 Mcg PO DAILYAC Furosemide 40 Mg Tablet 40 Mg PO DAILY Vitamin B-12 (Cyanocobalamin (Vitamin B-12)) 1,000 Mcg Tablet 1,000 Mcg PO DAILY Donepezil Hcl 5 Mg Tab.rapdis 5 Mg PO QHS Diagnosis: Problems: (1) Mental health disorder ARA VANCE MD Jan 14, 2017 20:07
[2017-01-14] MEDS: MIRTAZAPINE 7.5 MG TABLET. PO SCH (20:30)
--- NOTE | 2017-01-14 22:50 | NUR ---
Behavior Intervention Response and Plan: BIRP Note: Behavior: Assumed Care of patient, patient located in Day Room at shift change. Patient exhibited the following behavior Calm, Disorganized, Compliant. Brief assessment on rounds of vital signs, medication needs, lab studies, and pain. Treatment plan problems 1-2. Intervention: Patient assessed and the following interventions initiated safety checks 15 Minute Checks Cognitive Assessment , Head to toe Assessment , Medications. Response: After interactions and interventions patient responded in the following manner, Drowsy , Withdrawn ,Compliant. Continue to assess behaviors and condition will continue to monitor throughout the shift as needed. Patient educated on ADL's, and hand hygiene. Plan: Continue to monitor Master Treatment Plan for patient's progress toward short term goals of Improved Mood, Medication Compliance, assisted goals to return to previous living setting vs placement. Continue to assess patient for changes in above assessment. Monitor for medication needs, pain, and safety concerns. Hourly rounding performed to ensure safe environment.
--- NOTE | 2017-01-14 23:30 | PN ---
DATE: 01/13/2017 This late entry, date of service 01/13/2017, covers elements not covered in my initial note of 01/13/2017. The patient was seen individually evening of 01/13/2017. She has been quite withdrawn, irritable at times. Appetite is poor. She slept 9-3/4 hours previous evening. She is quite confused, demented. REVIEW OF SYSTEMS: Ambulation impaired, in wheelchair. No CV, , pulmonary, eye, ENT system symptoms on review. Reliability poor. MENTAL STATUS EXAM: Oriented to herself. Insight, judgment, recent and remote memory, attention, concentration, fund of knowledge poor, consistent with her diagnosis mentioned in my initial note. PLAN: Stop the Aricept 10 mg a day as it could be worsening appetite, and given the level of her dementia, it probably has no additional benefit for that at this stage. We will maintain the Zyprexa p.r.n. and start Remeron 7.5 mg p.o. at bedtime, both for the anxiety symptoms and to help stimulate the appetite. Maintain Zoloft 25 mg a day. Adjust further as clinically indicated. Reviewed drug interactions. Risk/benefit ratio favors no further change at this time. ARA VANCE MD DR: HUMPHREY/stacy JOB#: [id number] / [id number]
[2017-01-15 06:11] VITALS: BP 148/85
--- NOTE | 2017-01-15 09:00 | NUR ---
THERAPEUTIC RECREATION GROUP NOTE TITLE :01/15 [facility] ACTIVITY : Social Events and Holidays GOAL : Facilitate sense of belonging and well-being, increase socialization and social skills. Incorporate traditions. DURATION : 50 Minutes RESPONSE : No participation
[2017-01-15] MEDS: CYANOCOBALAMIN (VITAMIN B-12) 1,000 MCG TABLET. PO SCH (09:10)
[2017-01-15] MEDS: POLYETHYLENE GLYCOL 3350 17 GM PACKET. PO SCH (09:10)
[2017-01-15] MEDS: POTASSIUM CHLORIDE 10 MEQ TABLET.ER. PO SCH (09:10)
[2017-01-15] MEDS: amLODIPine BESYLATE 5 MG TABLET PO SCH (09:10)
[2017-01-15] MEDS: LEVOTHYROXINE 100 MCG TABLET PO SCH (09:10)
[2017-01-15] MEDS: FUROSEMIDE 20 MG TABLET PO SCH (09:10)
[2017-01-15] MEDS: buPROPion XL 150 MG TAB.ER.24H PO SCH (09:11)
--- NOTE | 2017-01-15 10:01 | NUR ---
Behavior Intervention Response and Plan: BIRP Note: Behavior: Assumed Care of patient, patient located in Hallway at shift change. Patient exhibited the following behavior Disorganized, Irritable, Non Compliant with Meds. Brief assessment on rounds of vital signs, medication needs, lab studies, and pain. Treatment plan problems 1-2. Intervention: Patient assessed and the following interventions initiated safety checks 15 Minute Checks Personal Alarm in place , Cognitive Assessment , Head to toe Assessment. Response: After interactions and interventions patient responded in the following manner, Disorganized , Non Compliant with Meds ,Withdrawn. Continue to assess behaviors and condition will continue to monitor throughout the shift as needed. Patient educated on ADL's, and hand hygiene. Plan: Continue to monitor Master Treatment Plan for patient's progress toward short term goals of Medication Compliance, Improved Mood, shelter goals to return to previous living setting vs placement. Continue to assess patient for changes in above assessment. Monitor for medication needs, pain, and safety concerns. Hourly rounding performed to ensure safe environment.
--- NOTE | 2017-01-15 14:05 | NUR ---
THERAPEUTIC RECREATION GROUP NOTE TITLE :Poker-Outside ACTIVITY : Activities and Games GOAL : Increase social interaction, problem solving. Maintain or improve mental functioning. Decrease restlessness DURATION : 60 minutes RESPONSE : No participation
--- NOTE | 2017-01-15 15:00 | NUR ---
Group Note [facility] Group Type: 01/15 Remembrance & other Historical Events in Lifetime Start Time: 1:00pm End Time: 2:00pm Problem: Depression Purpose: Express Feelings Level of Participation: Moderate Behaviors or Symptoms Observed: Pt. willing to go outside w/group and wheeled self out. Interventions: Reminiscence Response: Pt. able to include self in group discussion. Others were slightly more talkative, but able to discuss w/group when SW directly asked questions to Pt. Plan: continue to monitor and encourage participation
[2017-01-15 16:03] VITALS: BP 113/89
[2017-01-15] MEDS: PRENATAL MULTIVITAMIN TABLET. PO SCH (17:00)
--- NOTE | 2017-01-15 19:47 | PDOC ---
Exam Liborio Demential Exam: Liborio Note: Please also refer to the separate dictated note~for this date of service dictated separately.~Patient seen individually. Discussed the patient with Nursing staff reviewed the chart.~Reviewed interim history and current functioning. Reviewed vital signs,~Labs/ Radiology~and current medications noted below. Continue current treatment with the changes noted in the dictated addendum note Assessment: Vital Signs: Vital Signs Date Time Temp Pulse Resp B/P (MAP) Pulse Ox O2 Delivery O2 Flow Rate FiO2 01/15/17 16:03 98.5 69 18 113/89 (97) 97 01/12/17 06:01 Room Air I&O Intake and Output 01/16/17 07:00 Intake Total 0 ml Balance 0 ml Intake Oral 0 ml Current Medications: Meds: Current Medications Amlodipine Besylate (Norvasc) 5 mg DAILY PO Last administered on 01/15/17 09: 10; Start 01/10/17 at 09:00 Cyanocobalamin (Vitamin B-12) 1,000 mcg DAILY PO Last administered on 09:10; Start 01/10/17 at 09:00 Furosemide (Lasix) 20 mg DAILY PO Last administered on 01/15/17 09:10; Start 01/10/17 at 09:00 Levothyroxine Sodium (Synthroid) 100 mcg DAILYAC PO Last administered on 09:10; Start 01/10/17 at 08:00 Polyethylene Glycol (miraLAX) 17 gm DAILY PO Last administered on 01/15/17 09: 10; Start 01/10/17 at 09:00 Multivitamins/ Calcium (Thera-M Plus) 1 tab DAILY PO Last administered on 07:35; Start 01/10/17 at 09:00; Stop 01/12/17 at 16:04; Status DC Potassium Chloride (Klor-Con) 10 meq DAILYWBKFT PO Last administered on 09:10; Start 01/10/17 at 08:00 Olanzapine (ZyPREXA ZYDIS) 2.5 mg PRN Q2HR PRN PO ANXIETY / AGITATION; Start at 18:45 Donepezil HCl (Aricept) 10 mg DAILY PO Last administered on 01/13/17 07:53; Start 01/11/17 at 09:00; Stop 01/13/17 at 18:43; Status DC Sertraline HCl (Zoloft) 25 mg DAILY PO ; Start 01/11/17 at 12:00; Stop 01/11/17 at 12:13; Status DC Sertraline HCl (Zoloft) 25 mg DAILY PO Last administered on 01/14/17 07:52; Start 01/12/17 at 09:00; Stop 01/14/17 at 17:42; Status DC Prenat Multivit/ [place]/Iron/Folic Ac (Multivitamin ) 1 tab DAILYBFRSUP PO Last administered on 01/15/17 17:00; Start 01/11/17 at 17:00 Mirtazapine (Remeron) 7.5 mg QHS PO Last administered on 01/14/17 20:30; Start 01/13/17 at 21:00 Bupropion HCl (Wellbutrin Xl) 150 mg DAILY PO Last administered on 01/15/17 09 :11; Start 01/15/17 at 09:00 Magnesium Hydroxide (Milk Of Magnesia) 2,400 mg PRN DAILY PRN PO CONSTIPATION Last administered on 01/15/17 07:02; Start 01/14/17 at 18:00 Active Scripts Active Reported Multivitamins (Multivitamin) 1 Each Tablet 1 Tab PO DAILY Zyprexa Zydis (Olanzapine) 5 Mg Tab.rapdis 2.5 Mg PO PRN Q2HR PRN Klor-Con 10 (Potassium Chloride) 10 Meq Tablet.er 1 Tab PO DAILY Polyethylene Glycol 3350 255 Gm Powder 17 Gm PO DAILY Norvasc (Amlodipine Besylate) 5 Mg Tablet 5 Mg PO BID Levothyroxine Sodium 100 Mcg Tablet 100 Mcg PO DAILYAC Furosemide 40 Mg Tablet 40 Mg PO DAILY Vitamin B-12 (Cyanocobalamin (Vitamin B-12)) 1,000 Mcg Tablet 1,000 Mcg PO DAILY Donepezil Hcl 5 Mg Tab.rapdis 5 Mg PO QHS Diagnosis: Problems: (1) Mental health disorder ARA VANCE MD Jan 15, 2017 19:47
[2017-01-15] MEDS: MIRTAZAPINE 7.5 MG TABLET. PO SCH (20:02)
--- NOTE | 2017-01-15 21:00 | NUR ---
Behavior Intervention Response and Plan: BIRP Note: Behavior: Assumed Care of patient, patient located in Day Room at shift change. Patient exhibited the following behavior Withdrawn, Cooperative, Drowsy. Brief assessment on rounds of vital signs, medication needs, lab studies, and pain. Treatment plan problems . Intervention: Patient assessed and the following interventions initiated safety checks 15 Minute Checks Cognitive Assessment , Head to toe Assessment , Medications. Response: After interactions and interventions patient responded in the following manner, Compliant , Compliant ,Calm. Continue to assess behaviors and condition will continue to monitor throughout the shift as needed. Patient educated on ADL's, and hand hygiene. 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 Continue to assess patient for changes in above assessment. Monitor for medication needs, pain, and safety concerns. Hourly rounding performed to ensure safe environment.
[2017-01-16 06:04] VITALS: BP 144/78
[2017-01-16 07:52] LABS: BASO # 0.1 x10^3/uL (0.0-0.2); BASO % 1 % (0-3); EOS # 0.3 x10^3/uL (0.0-0.7); EOS % 6 % (0-3); HEMATOCRIT 28.9 % (39.0-53.0); HEMOGLOBIN 9.7 g/dL (13.0-17.5); LYMPH % 18 % (24-48); MEAN CORPUSCULAR HEMOGLOBIN 31 pg (25-35); MEAN CORPUSCULAR HGB CONC 34 g/dL (31-37); MEAN CORPUSCULAR VOLUME 91 fL (79-100); MONO # 0.7 x10^3/uL (0.0-1.1); MONO % 13 % (0-9); NEUT # 3.4 x10^3uL (1.8-7.7); NEUT % 62 % (31-73); PLATELET COUNT 211 x10^3/uL (140-400); RED BLOOD COUNT 3.17 x10^6/uL (4.30-5.70); RED CELL DISTRIBUTION WIDTH 14.3 % (11.5-14.5); WHITE BLOOD COUNT 5.5 x10^3/uL (4.0-11.0)
[2017-01-16 08:05] LABS: ALBUMIN 3.3 g/dL (3.4-5.0); ALBUMIN/GLOBULIN RATIO 0.8 (1.0-1.7); CALCIUM 8.7 mg/dL (8.5-10.1); GFR 32.4; MAGNESIUM 2.5 mg/dL (1.8-2.4); POTASSIUM 4.8 mmol/L (3.5-5.1); TOTAL BILIRUBIN 0.4 mg/dL (0.2-1.0); TOTAL PROTEIN 7.2 g/dL (6.4-8.2)
--- NOTE | 2017-01-16 09:00 | NUR ---
THERAPEUTIC RECREATION GROUP NOTE TITLE :Coloring: Jake ACTIVITY : Relaxation GOAL : Decrease stress, elevate mood, increase concentration/attention, encourage awareness DURATION : 60 Minutes RESPONSE : Moderate participation. Pt. was alert and engaged for the first 20 minutes. She needed no prompting to stay on task. She stopped coloring and covered her body with a blanket, all the way under her chin and over her ears, exposing only her face. She stated she was very cold and left the group without notice.
[2017-01-16] MEDS: POLYETHYLENE GLYCOL 3350 17 GM PACKET. PO SCH (09:03)
[2017-01-16] MEDS: POTASSIUM CHLORIDE 10 MEQ TABLET.ER. PO SCH (09:03)
[2017-01-16] MEDS: amLODIPine BESYLATE 5 MG TABLET PO SCH (09:04)
[2017-01-16] MEDS: LEVOTHYROXINE 100 MCG TABLET PO SCH (09:04)
[2017-01-16] MEDS: FUROSEMIDE 20 MG TABLET PO SCH (09:04)
[2017-01-16] MEDS: CYANOCOBALAMIN (VITAMIN B-12) 1,000 MCG TABLET. PO SCH (09:04)
[2017-01-16] MEDS: buPROPion XL 150 MG TAB.ER.24H PO SCH (09:04)
--- NOTE | 2017-01-16 09:55 | NUR ---
Behavior Intervention Response and Plan: BIRP Note: Behavior: Assumed Care of patient, patient located in Day Room at shift change. Patient exhibited the following behavior Calm, Cooperative, Withdrawn. Brief assessment on rounds of vital signs, medication needs, lab studies, and pain. Treatment plan problems 1-2. Intervention: Patient assessed and the following interventions initiated safety checks 15 Minute Checks Personal Alarm in place , Cognitive Assessment , Head to toe Assessment. Response: After interactions and interventions patient responded in the following manner, Withdrawn , Calm ,Disorganized. Continue to assess behaviors and condition will continue to monitor throughout the shift as needed. Patient educated on ADL's, and hand hygiene. 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 Continue to assess patient for changes in above assessment. Monitor for medication needs, pain, and safety concerns. Hourly rounding performed to ensure safe environment.
--- NOTE | 2017-01-16 11:30 | NUR ---
THERAPEUTIC RECREATION GROUP NOTE TITLE :Movement to Music: Strength ACTIVITY : Movement/ Exercise GOAL : Increase morale, attention, flexibility. Decrease stress/anxiety. DURATION : 30 Minutes RESPONSE : Minimal participation. Pt. was with the group the entire time; however, showed little interest and closed eyes occasionally. She followed along with a couple moves.
--- NOTE | 2017-01-16 11:35 | PN ---
DATE: 01/14/2017 This late entry for 01/14/2017 covers elements not covered in my initial note of 01/14/2017. SUBJECTIVE: I met with the patient in the evening of 01/14/2017. The patient remains confused, exit seeking in the evening, trying to get out, slept 5-1/2 hours previous night. She made a statement "this is the craziest thing have ever had happened to me." She then covered her face. REVIEW OF SYSTEMS: Ambulation impaired, in wheelchair. No CV, , pulmonary, eye, ENT system symptoms on review. MENTAL STATUS EXAM: Oriented to herself. Insight, judgment, recent and remote memory, attention, concentration, fund of knowledge poor, consistent with her diagnosis mentioned in my initial note. PLAN: Change the Zoloft to Wellbutrin-XL 150 mg a day. Continue Zyprexa p.r.n., Remeron 7.5 mg at bedtime. Aricept discontinued as it would have little benefit at this stage of her dementia. Review of drug interactions. Risk/benefit ratio favors no further change. ARA VANCE MD DR: HUMPHREY/stacy JOB#: [id number] / [id number]
--- NOTE | 2017-01-16 14:00 | NUR ---
THERAPEUTIC RECREATION GROUP NOTE TITLE :Name that Tune ACTIVITY : Music, Cognitive Stimulation GOAL : Increase socialization, elevate mood, stimulate memory, Maintain or improve cognitive functioning DURATION : 60 minutes RESPONSE : No participation
[2017-01-16 16:05] VITALS: BP 111/73
[2017-01-16] MEDS: PRENATAL MULTIVITAMIN TABLET. PO SCH (17:00)
--- NOTE | 2017-01-16 19:44 | PDOC ---
Exam Liborio Demential Exam: Liborio Note: Please also refer to the separate dictated note~for this date of service dictated separately.~Patient seen individually. Discussed the patient with Nursing staff reviewed the chart.~Reviewed interim history and current functioning. Reviewed vital signs,~Labs/ Radiology~and current medications noted below. Continue current treatment with the changes noted in the dictated addendum note Assessment: Vital Signs: Vital Signs Date Time Temp Pulse Resp B/P (MAP) Pulse Ox O2 Delivery O2 Flow Rate FiO2 01/16/17 16:05 98.3 77 20 111/73 (86) 98 01/12/17 06:01 Room Air I&O Intake and Output 01/17/17 06:59 Intake Total 420 ml Balance 420 ml Intake Oral 420 ml Labs: Laboratory Tests Test 01/16/17 07:28 White Blood Count 5.5 x10^3/uL (4.0-11.0) Red Blood Count 3.17 x10^6/uL (4.30-5.70) L Hemoglobin 9.7 g/dL (13.0-17.5) L Hematocrit 28.9 % (39.0-53.0) L Mean Corpuscular Volume 91 fL (79-100) Mean Corpuscular Hemoglobin 31 pg (25-35) Mean Corpuscular Hemoglobin Concent 34 g/dL (31-37) Red Cell Distribution Width 14.3 % (11.5-14.5) Platelet Count 211 x10^3/uL (140-400) Neutrophils (%) (Auto) 62 % (31-73) Lymphocytes (%) (Auto) 18 % (24-48) L Monocytes (%) (Auto) 13 % (0-9) H Eosinophils (%) (Auto) 6 % (0-3) H Basophils (%) (Auto) 1 % (0-3) Neutrophils # (Auto) 3.4 x10^3uL (1.8-7.7) Lymphocytes # (Auto) 1.0 x10^3/uL (1.0-4.8) Monocytes # (Auto) 0.7 x10^3/uL (0.0-1.1) Eosinophils # (Auto) 0.3 x10^3/uL (0.0-0.7) Basophils # (Auto) 0.1 x10^3/uL (0.0-0.2) Sodium Level 141 mmol/L (136-145) Potassium Level 4.8 mmol/L (3.5-5.1) Chloride Level 105 mmol/L (98-107) Carbon Dioxide Level 32 mmol/L (21-32) Anion Gap 4 (6-14) L Blood Urea Nitrogen 37 mg/dL (8-26) H Creatinine 2.0 mg/dL (0.7-1.3) H Estimated GFR (Cockcroft-Gault) 32.4 BUN/Creatinine Ratio 19 (6-20) Glucose Level 100 mg/dL (70-99) H Calcium Level 8.7 mg/dL (8.5-10.1) Magnesium Level 2.5 mg/dL (1.8-2.4) H Total Bilirubin 0.4 mg/dL (0.2-1.0) Aspartate Amino Transferase (AST) 19 U/L (15-37) Alanine Aminotransferase (ALT) 24 U/L (16-63) Alkaline Phosphatase 96 U/L (46-116) Total Protein 7.2 g/dL (6.4-8.2) Albumin 3.3 g/dL (3.4-5.0) L Albumin/Globulin Ratio 0.8 (1.0-1.7) L Current Medications: Meds: Current Medications Amlodipine Besylate (Norvasc) 5 mg DAILY PO Last administered on 01/16/17 09: 04; Start 01/10/17 at 09:00 Cyanocobalamin (Vitamin B-12) 1,000 mcg DAILY PO Last administered on 09:04; Start 01/10/17 at 09:00 Furosemide (Lasix) 20 mg DAILY PO Last administered on 01/16/17 09:04; Start 01/10/17 at 09:00 Levothyroxine Sodium (Synthroid) 100 mcg DAILYAC PO Last administered on 09:04; Start 01/10/17 at 08:00 Polyethylene Glycol (miraLAX) 17 gm DAILY PO Last administered on 01/16/17 09: 03; Start 01/10/17 at 09:00 Multivitamins/ Calcium (Thera-M Plus) 1 tab DAILY PO Last administered on 07:35; Start 01/10/17 at 09:00; Stop 01/12/17 at 16:04; Status DC Potassium Chloride (Klor-Con) 10 meq DAILYWBKFT PO Last administered on 09:03; Start 01/10/17 at 08:00 Olanzapine (ZyPREXA ZYDIS) 2.5 mg PRN Q2HR PRN PO ANXIETY / AGITATION; Start at 18:45 Donepezil HCl (Aricept) 10 mg DAILY PO Last administered on 01/13/17 07:53; Start 01/11/17 at 09:00; Stop 01/13/17 at 18:43; Status DC Sertraline HCl (Zoloft) 25 mg DAILY PO ; Start 01/11/17 at 12:00; Stop 01/11/17 at 12:13; Status DC Sertraline HCl (Zoloft) 25 mg DAILY PO Last administered on 01/14/17 07:52; Start 01/12/17 at 09:00; Stop 01/14/17 at 17:42; Status DC Prenat Multivit/ [place]/Iron/Folic Ac (Multivitamin ) 1 tab DAILYBFRSUP PO Last administered on 01/16/17 17:00; Start 01/11/17 at 17:00 Mirtazapine (Remeron) 7.5 mg QHS PO Last administered on 01/15/17 20:02; Start 01/13/17 at 21:00 Bupropion HCl (Wellbutrin Xl) 150 mg DAILY PO Last administered on 01/16/17 09 :04; Start 01/15/17 at 09:00; Stop 01/16/17 at 18:34; Status DC Magnesium Hydroxide (Milk Of Magnesia) 2,400 mg PRN DAILY PRN PO CONSTIPATION Last administered on 01/15/17 07:02; Start 01/14/17 at 18:00 Dronabinol (Marinol) 2.5 mg BIDACLD PO ; Start 01/17/17 at 11:30 Bupropion HCl (Wellbutrin Xl) 300 mg DAILY PO ; Start 01/17/17 at 09:00 Active Scripts Active Reported Multivitamins (Multivitamin) 1 Each Tablet 1 Tab PO DAILY Zyprexa Zydis (Olanzapine) 5 Mg Tab.rapdis 2.5 Mg PO PRN Q2HR PRN Klor-Con 10 (Potassium Chloride) 10 Meq Tablet.er 1 Tab PO DAILY Polyethylene Glycol 3350 255 Gm Powder 17 Gm PO DAILY Norvasc (Amlodipine Besylate) 5 Mg Tablet 5 Mg PO BID Levothyroxine Sodium 100 Mcg Tablet 100 Mcg PO DAILYAC Furosemide 40 Mg Tablet 40 Mg PO DAILY Vitamin B-12 (Cyanocobalamin (Vitamin B-12)) 1,000 Mcg Tablet 1,000 Mcg PO DAILY Donepezil Hcl 5 Mg Tab.rapdis 5 Mg PO QHS Diagnosis: Problems: (1) Mental health disorder ARA VANCE MD Jan 16, 2017 19:44
[2017-01-16] MEDS: MIRTAZAPINE 7.5 MG TABLET. PO SCH (20:05)
--- NOTE | 2017-01-16 21:55 | NUR ---
Behavior Intervention Response and Plan: BIRP Note: Behavior: Assumed Care of patient, patient located in Day Room at shift change. Patient exhibited the following behavior Interactive, Calm, Disorganized. Brief assessment on rounds of vital signs, medication needs, lab studies, and pain. Treatment plan problems . Intervention: Patient assessed and the following interventions initiated safety checks 15 Minute Checks Head to toe Assessment , Medications , Cognitive Assessment. Response: After interactions and interventions patient responded in the following manner, Cooperative , Compliant ,Withdrawn. Continue to assess behaviors and condition will continue to monitor throughout the shift as needed. Patient educated on ADL's, and hand hygiene. Plan: Continue to monitor Master Treatment Plan for patient's progress toward short term goals of Improved Mood, Decreased Anxiety, penitentiary goals to return to previous living setting vs placement. Continue to assess patient for changes in above assessment. Monitor for medication needs, pain, and safety concerns. Hourly rounding performed to ensure safe environment.
--- NOTE | 2017-01-17 02:25 | PN ---
DATE: 01/15/2017 PSYCHIATRIC PROGRESS NOTE This is a late entry for 01/15/2017, covers elements not covered in my initial note of 01/15/2017. SUBJECTIVE: I met with the patient the evening of 01/15/2017. She slept 6-3/4 hours the previous night. The morning of 01/15/2017, she was quite irritable, refused a.m. medications, took them later. The evening of 01/15/2017 as I met with her, she was obsessed with wanting to leave the unit, wanting the exit door, wanting me to push her and open the door, but then seemed to redirect. REVIEW OF SYSTEMS: Ambulation impaired, in a wheelchair. No CV, , pulmonary, eye, ENT system symptoms on review. Reliability poor. MENTAL STATUS EXAM: Oriented to herself. Insight, judgment, recent and remote memory, attention, concentration, fund of knowledge poor, consistent with her diagnosis mentioned in my initial note. LABORATORY DATA: Reviewed. PLAN: Continue current psychotropics mentioned in my initial note. Reviewed drug interactions. Risk/benefit ratio favors no further change. Repeat EKG, QTC is improved. Swallow study 01/11/2017, she remains on pureed diet. Adjust further as clinically indicated. ARA VANCE MD DR: HUMPHREY/tsacy JOB#: [id number] / [id number]
[2017-01-17 06:07] VITALS: BP 111/65
[2017-01-17] MEDS: POTASSIUM CHLORIDE 10 MEQ TABLET.ER. PO SCH (08:00)
[2017-01-17] MEDS: CYANOCOBALAMIN (VITAMIN B-12) 1,000 MCG TABLET. PO SCH (08:07)
[2017-01-17] MEDS: POLYETHYLENE GLYCOL 3350 17 GM PACKET. PO SCH (08:07)
[2017-01-17] MEDS: LEVOTHYROXINE 100 MCG TABLET PO SCH (08:07)
[2017-01-17] MEDS: FUROSEMIDE 20 MG TABLET PO SCH (08:07)
[2017-01-17] MEDS: amLODIPine BESYLATE 5 MG TABLET PO SCH (08:08)
[2017-01-17] MEDS: buPROPion XL 150 MG TAB.ER.24H PO SCH (08:13)
--- NOTE | 2017-01-17 09:15 | NUR ---
THERAPEUTIC RECREATION GROUP NOTE TITLE :Mood Changers: Laughter, Gratitude, Compliments ACTIVITY : Humor/ Relaxation GOAL : Decrease stress, elevate mood, increase concentration/attention, encourage awareness DURATION : 60 minutes RESPONSE : Full participation. Pt. was alert and engaged the entire time. She shared her thoughts clearly, laughed with the group, share things she was grateful for and received/ gave compliments to others. She was calm and pleasant to have in group.
--- NOTE | 2017-01-17 10:38 | NUR ---
Behavior Intervention Response and Plan: BIRP Note: Behavior: Assumed Care of patient, patient located in Dining Room at shift change. Patient exhibited the following behavior Calm, Disorganized, Withdrawn. Brief assessment on rounds of vital signs, medication needs, lab studies, and pain. Treatment plan problems 1-2. Intervention: Patient assessed and the following interventions initiated safety checks 15 Minute Checks Personal Alarm in place , Cognitive Assessment , Head to toe Assessment. Response: After interactions and interventions patient responded in the following manner, Disorganized , Withdrawn ,Defensive. Continue to assess behaviors and condition will continue to monitor throughout the shift as needed. Patient educated on ADL's, and hand hygiene. Plan: Continue to monitor Master Treatment Plan for patient's progress toward short term goals of Medication Compliance, Improved Mood, terminal clerk goals to return to previous living setting vs placement. Continue to assess patient for changes in above assessment. Monitor for medication needs, pain, and safety concerns. Hourly rounding performed to ensure safe environment.
--- NOTE | 2017-01-17 11:30 | NUR ---
THERAPEUTIC RECREATION GROUP NOTE TITLE :Movement to Music: Flexibility ACTIVITY : Movement/ Exercise GOAL : Increase morale, attention, flexibility. Decrease stress/anxiety. DURATION : 30 Minutes RESPONSE : Minimal participation. Pt. was with the group the enitre time; however, she did not show much interest or follow along with the moves. She tapped her feet to the music the entire time.
[2017-01-17] MEDS: DRONABINOL 2.5 MG CAPSULE PO SCH ×2 (12:23→17:26)
--- NOTE | 2017-01-17 14:10 | NUR ---
THERAPEUTIC RECREATION GROUP NOTE TITLE :ABC's of Leisure ACTIVITY : Leisure Awareness GOAL : Increase knowledge of leisure activities DURATION : 50 Minutes RESPONSE : Moderate participation. Pt. was alert and engaged the entire time. She needed direct promtping to name leisure activities that started with the appropriate letter but she was calm and pleasant.
--- NOTE | 2017-01-17 15:20 | NUR ---
Group Note [facility] Group Type Anger Map Start Time: 1:10 End Time: 2:10 Problem: Agitation Purpose: Inc Direction following, Increase stimulation, Increased self awareness, socialization Level of Participation: Absent Behaviors or Symptoms Observed: Pt engaged with SW student one on one. Pt sat at the edge of the group and discussed questions with SW student Interventions: Reframing Response: Plan: Group Participation Additional Comments: SW will continue to try to engage pt.
[2017-01-17 16:17] VITALS: BP 124/71
[2017-01-17] MEDS: PRENATAL MULTIVITAMIN TABLET. PO SCH (17:26)
--- NOTE | 2017-01-17 19:56 | PDOC ---
Exam Liborio Demential Exam: Liborio Note: Please also refer to the separate dictated note~for this date of service dictated separately.~Patient seen individually. Discussed the patient with Nursing staff reviewed the chart.~Reviewed interim history and current functioning. Reviewed vital signs,~Labs/ Radiology~and current medications noted below. Continue current treatment with the changes noted in the dictated addendum note Assessment: Vital Signs: Vital Signs Date Time Temp Pulse Resp B/P (MAP) Pulse Ox O2 Delivery O2 Flow Rate FiO2 01/17/17 16:17 98.7 100 18 124/71 (88) 97 01/12/17 06:01 Room Air I&O Intake and Output 01/18/17 07:00 Intake Total 660 ml Balance 660 ml Intake Oral 660 ml # Bowel Movements 1 Current Medications: Meds: Current Medications Amlodipine Besylate (Norvasc) 5 mg DAILY PO Last administered on 01/17/17 08: 08; Start 01/10/17 at 09:00 Cyanocobalamin (Vitamin B-12) 1,000 mcg DAILY PO Last administered on 08:07; Start 01/10/17 at 09:00 Furosemide (Lasix) 20 mg DAILY PO Last administered on 01/17/17 08:07; Start 01/10/17 at 09:00 Levothyroxine Sodium (Synthroid) 100 mcg DAILYAC PO Last administered on 08:07; Start 01/10/17 at 08:00 Polyethylene Glycol (miraLAX) 17 gm DAILY PO Last administered on 01/17/17 08: 07; Start 01/10/17 at 09:00 Multivitamins/ Calcium (Thera-M Plus) 1 tab DAILY PO Last administered on 07:35; Start 01/10/17 at 09:00; Stop 01/12/17 at 16:04; Status DC Potassium Chloride (Klor-Con) 10 meq DAILYWBKFT PO Last administered on 08:00; Start 01/10/17 at 08:00 Olanzapine (ZyPREXA ZYDIS) 2.5 mg PRN Q2HR PRN PO ANXIETY / AGITATION; Start at 18:45 Donepezil HCl (Aricept) 10 mg DAILY PO Last administered on 01/13/17 07:53; Start 01/11/17 at 09:00; Stop 01/13/17 at 18:43; Status DC Sertraline HCl (Zoloft) 25 mg DAILY PO ; Start 01/11/17 at 12:00; Stop 01/11/17 at 12:13; Status DC Sertraline HCl (Zoloft) 25 mg DAILY PO Last administered on 01/14/17 07:52; Start 01/12/17 at 09:00; Stop 01/14/17 at 17:42; Status DC Prenat Multivit/ [place]/Iron/Folic Ac (Multivitamin ) 1 tab DAILYBFRSUP PO Last administered on 01/17/17 17:26; Start 01/11/17 at 17:00 Mirtazapine (Remeron) 7.5 mg QHS PO Last administered on 01/16/17 20:05; Start 01/13/17 at 21:00 Bupropion HCl (Wellbutrin Xl) 150 mg DAILY PO Last administered on 01/16/17 09 :04; Start 01/15/17 at 09:00; Stop 01/16/17 at 18:34; Status DC Magnesium Hydroxide (Milk Of Magnesia) 2,400 mg PRN DAILY PRN PO CONSTIPATION Last administered on 01/15/17 07:02; Start 01/14/17 at 18:00 Dronabinol (Marinol) 2.5 mg BIDACLD PO Last administered on 01/17/17 17:26; Start 01/17/17 at 11:30 Bupropion HCl (Wellbutrin Xl) 300 mg DAILY PO Last administered on 01/17/17 08 :13; Start 01/17/17 at 09:00 Quetiapine Fumarate (SEROquel) 12.5 mg BID92 PO ; Start 01/18/17 at 09:00 Active Scripts Active Reported Multivitamins (Multivitamin) 1 Each Tablet 1 Tab PO DAILY Zyprexa Zydis (Olanzapine) 5 Mg Tab.rapdis 2.5 Mg PO PRN Q2HR PRN Klor-Con 10 (Potassium Chloride) 10 Meq Tablet.er 1 Tab PO DAILY Polyethylene Glycol 3350 255 Gm Powder 17 Gm PO DAILY Norvasc (Amlodipine Besylate) 5 Mg Tablet 5 Mg PO BID Levothyroxine Sodium 100 Mcg Tablet 100 Mcg PO DAILYAC Furosemide 40 Mg Tablet 40 Mg PO DAILY Vitamin B-12 (Cyanocobalamin (Vitamin B-12)) 1,000 Mcg Tablet 1,000 Mcg PO DAILY Donepezil Hcl 5 Mg Tab.rapdis 5 Mg PO QHS Diagnosis: Problems: (1) Mental health disorder (2) Anxiety disorder (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
--- NOTE | 2017-01-17 20:00 | NUR ---
Behavior Intervention Response and Plan: BIRP Note: Behavior: Assumed Care of patient, patient located in Day Room at shift change. Patient exhibited the following behavior Calm, Disorganized, Withdrawn. Brief assessment on rounds of vital signs, medication needs, lab studies, and pain. Treatment plan problems 1-2. Intervention: Patient assessed and the following interventions initiated safety checks 15 Minute Checks Personal Alarm in place , Cognitive Assessment , Head to toe Assessment, Nutrition, and Oral Hydration. Response: After interactions and interventions patient responded in the following manner, Disorganized , Withdrawn ,Defensive. Continue to assess behaviors and condition will continue to monitor throughout the shift as needed. Patient educated on ADL's, and hand hygiene. Plan: Continue to monitor Master Treatment Plan for patient's progress toward short term goals of Medication Compliance, Improved Mood, medicine teacher goals to return to previous living setting vs placement. Continue to assess patient for changes in above assessment. Monitor for medication needs, pain, and safety concerns. Hourly rounding performed to ensure safe environment.
[2017-01-17] MEDS: MIRTAZAPINE 7.5 MG TABLET. PO SCH (20:10)
--- NOTE | 2017-01-17 21:30 | NUR ---
Nursing note: Patient agitated and resistive to cares at this time. Swinging at staff, refusing to go to bed stating, " I need to leave; I need to go bead picker my ." Patient given PRN Zyprexa Zydis, as ordered at 2041. Upon reassessment patient calm, cooperative in going to bed. Will follow.
--- NOTE | 2017-01-18 03:22 | PN ---
DATE: 01/16/2017 This late entry of 01/16/2017 covers elements not covered in my initial note. SUBJECTIVE: I met with the patient in the evening of 01/16/2017. The patient remains confused, slept 6-3/4 hours previous evening, compliant with medication, covers the face with a blanket. Oral intake is poor. Dietary consult has been requested. REVIEW OF SYSTEMS: Ambulation impaired, in wheelchair. No CV, , pulmonary, eye, ENT system symptoms on review. Reliability poor. MENTAL STATUS EXAM: Oriented to herself. Insight, judgment, recent and remote memory, attention, concentration, fund of knowledge poor, consistent with her diagnosis mentioned in my initial note. PLAN: Increase Wellbutrin-XL from 150 mg a day to 300 mg a day starting 03/19/2017. Maintain the rest of the psychotropics. Reviewed drug contractions. Risk/benefit ratio favors no further. ARA VANCE MD DR: HUMPHREY/stacy JOB#: [id number] / [id number]
[2017-01-18 06:14] VITALS: BP 125/71
[2017-01-18] MEDS: LEVOTHYROXINE 100 MCG TABLET PO SCH (07:41)
--- NOTE | 2017-01-18 08:00 | NUR ---
Nursing Note: Pt very tired this am; pt was unable to sleep well last night d/t agitation and being fixated on leaving and delusion of need to picker tender her PRN given by shift supervisor film processing. Pt was allowed to sleep through breakfast.
[2017-01-18] MEDS: buPROPion XL 150 MG TAB.ER.24H PO SCH (08:16)
[2017-01-18] MEDS: amLODIPine BESYLATE 5 MG TABLET PO SCH (08:16)
[2017-01-18] MEDS: CYANOCOBALAMIN (VITAMIN B-12) 1,000 MCG TABLET. PO SCH (08:16)
[2017-01-18] MEDS: FUROSEMIDE 20 MG TABLET PO SCH (08:16)
[2017-01-18] MEDS: POTASSIUM CHLORIDE 10 MEQ TABLET.ER. PO SCH (08:16)
[2017-01-18] MEDS: POLYETHYLENE GLYCOL 3350 17 GM PACKET. PO SCH (08:17)
[2017-01-18] MEDS: QUEtiapine 25 MG TABLET. PO SCH ×2 (08:18→14:17)
--- NOTE | 2017-01-18 09:10 | NUR ---
THERAPEUTIC RECREATION GROUP NOTE TITLE :Movie- REPORTED BY CNAs ACTIVITY : Activities and Games GOAL : Increase alertness, focus, decrease stress DURATION : 90 minutes RESPONSE : No participation
--- NOTE | 2017-01-18 11:00 | NUR ---
Nursing Note: By the time pt awake and dressed for the day, pt unwilling to eat breakfast and physical therapy on the floor working with pt's.
[2017-01-18] MEDS: DRONABINOL 2.5 MG CAPSULE PO SCH ×2 (11:30→16:35)
--- NOTE | 2017-01-18 11:30 | NUR ---
THERAPEUTIC RECREATION GROUP NOTE TITLE :Movement to Music:Strength ACTIVITY : Movement/ Exercise GOAL : Increase morale, attention, flexibility. Decrease stress/anxiety. DURATION : 30 Minutes RESPONSE : Moderate participation. Pt. joined late and needed encouragement to follow along with moves. She did most of the moves but to a smaller scale.
--- NOTE | 2017-01-18 11:39 | NUR ---
Nursing Note: Pt worked with PT willingly; however, she c/o of being tired and having no energy.
--- NOTE | 2017-01-18 12:40 | NUR ---
Nursing Note: Felicia Spann, speech therapist, recommended that green beans be removed from pt's list of food items d/t the fact that the pt was chewing and spitting them out. Maker Up Folding aware and will make note of this.
--- NOTE | 2017-01-18 12:50 | NUR ---
Nursing Note: Pt ate much more of her lunch than in the past. Carpet Inspector and Speech Therapist agreed that winning combination of textures may have been found.
--- NOTE | 2017-01-18 14:29 | NUR ---
Nursing Note: Pt struggled swallowing some of her medication whole. Crushed in applesauce was not appealing but was tolerated. For 1400 dose, medication was crushed and mixed with strawberry yogurt which was better received by pt.
--- NOTE | 2017-01-18 14:43 | NUR ---
Group Note [facility] Group Type: "The Ungame" Start time: 1:00pm End time: 2:00pm Problem: Socializing Purpose: Getting to know each other Level of Participation: low Behavior or symptoms observed: Pt participated at the beginning of the group but soon withdrew and sat to the side with her eyes closed. Intervention: Pt was asked if she wanted to be moved closer to group in order to participate. Response: Pt stated that she "just wanted to sit in the sun and listen". Towards the end of group, pt moved away from the group to be in the shade. Plan: Group participation.
--- NOTE | 2017-01-18 14:54 | NUR ---
SW sat w/Pt. while in the day room. PT. appeared to be tired, but still able to somewhat follow along w/the tv show, laughing at appropriate times. PT/OT stated Pt. did participate in therapy earlier in the day. Pt. stated she could not get comfortable in her wc. SW discussed PTs' secret to a long marriage as she has been to her for 60+ years. SW will continue to work w/PT's on placement as initially he told this SW she would not LTC placement and SW [facility] This am during treatment team, Pt's stated she would be returning to her skilled facility? SW asked him to follow up w/that facility and to notify this SW.
--- NOTE | 2017-01-18 14:57 | NUR ---
Behavior Intervention Response and Plan: BIRP Note: Behavior: Assumed Care of patient, patient located in Patient Room at shift change. Patient exhibited the following behavior Sleeping, Disorganized, Compliant. Brief assessment on rounds of vital signs, medication needs, lab studies, and pain. Treatment plan problems Dementia w/ BD and Fall Risk. Intervention: Patient assessed and the following interventions initiated safety checks 15 Minute Checks Cognitive Assessment , Head to toe Assessment , Medications. Response: After interactions and interventions patient responded in the following manner, Calm , Disorganized ,Compliant. Continue to assess behaviors and condition will continue to monitor throughout the shift as needed. Patient educated on ADL's, and hand hygiene. Plan: Continue to monitor Master Treatment Plan for patient's progress toward short term goals of Decreased Aggression, Decreased Agitation, superintendent container terminal goals to return to previous living setting vs placement. Continue to assess patient for changes in above assessment. Monitor for medication needs, pain, and safety concerns. Hourly rounding performed to ensure safe environment.
--- NOTE | 2017-01-18 15:15 | NUR ---
THERAPEUTIC RECREATION GROUP NOTE TITLE :Internal Clock and Daily Schedule ACTIVITY : Education and Life Skills GOAL : Increase self-expression/insight, coping skills, attention. DURATION : 60 minutes RESPONSE : Full participation. Pt. contributed to the conversation after being prompted. She was social and physically close to another female patient, holding her hand and leaning up against her. At times their conversations were distracting.
[2017-01-18 16:27] VITALS: BP 105/62
[2017-01-18] MEDS: PRENATAL MULTIVITAMIN TABLET. PO SCH (16:35)
[2017-01-18] MEDS: MIRTAZAPINE 7.5 MG TABLET. PO SCH (19:28)
--- NOTE | 2017-01-18 20:10 | PDOC ---
Exam Liborio Demential Exam: Liborio Note: Please also refer to the separate dictated note~for this date of service dictated separately.~Patient seen individually. Discussed the patient with Nursing staff reviewed the chart.~Reviewed interim history and current functioning. Reviewed vital signs,~Labs/ Radiology~and current medications noted below. Continue current treatment with the changes noted in the dictated addendum note Assessment: Vital Signs: Vital Signs Date Time Temp Pulse Resp B/P (MAP) Pulse Ox O2 Delivery O2 Flow Rate FiO2 01/18/17 16:27 98.1 84 18 105/62 (76) 96 I&O Intake and Output 01/19/17 06:59 Intake Total 220 ml Balance 220 ml Intake Oral 220 ml Current Medications: Meds: Current Medications Amlodipine Besylate (Norvasc) 5 mg DAILY PO Last administered on 01/18/17 08: 16; Start 01/10/17 at 09:00 Cyanocobalamin (Vitamin B-12) 1,000 mcg DAILY PO Last administered on 08:16; Start 01/10/17 at 09:00 Furosemide (Lasix) 20 mg DAILY PO Last administered on 01/18/17 08:16; Start 01/10/17 at 09:00 Levothyroxine Sodium (Synthroid) 100 mcg DAILYAC PO Last administered on 07:41; Start 01/10/17 at 08:00 Polyethylene Glycol (miraLAX) 17 gm DAILY PO Last administered on 01/18/17 08: 17; Start 01/10/17 at 09:00 Multivitamins/ Calcium (Thera-M Plus) 1 tab DAILY PO Last administered on 07:35; Start 01/10/17 at 09:00; Stop 01/12/17 at 16:04; Status DC Potassium Chloride (Klor-Con) 10 meq DAILYWBKFT PO Last administered on 08:16; Start 01/10/17 at 08:00 Olanzapine (ZyPREXA ZYDIS) 2.5 mg PRN Q2HR PRN PO ANXIETY / AGITATION Last administered on 01/17/17 20:42; Start 01/10/17 at 18:45 Donepezil HCl (Aricept) 10 mg DAILY PO Last administered on 01/13/17 07:53; Start 01/11/17 at 09:00; Stop 01/13/17 at 18:43; Status DC Sertraline HCl (Zoloft) 25 mg DAILY PO ; Start 01/11/17 at 12:00; Stop 01/11/17 at 12:13; Status DC Sertraline HCl (Zoloft) 25 mg DAILY PO Last administered on 01/14/17 07:52; Start 01/12/17 at 09:00; Stop 01/14/17 at 17:42; Status DC Prenat Multivit/ Manager Metal/Iron/Folic Ac (Multivitamin ) 1 tab DAILYBFRSUP PO Last administered on 01/18/17 16:35; Start 01/11/17 at 17:00 Mirtazapine (Remeron) 7.5 mg QHS PO Last administered on 01/18/17 19:28; Start 01/13/17 at 21:00 Bupropion HCl (Wellbutrin Xl) 150 mg DAILY PO Last administered on 01/16/17 09 :04; Start 01/15/17 at 09:00; Stop 01/16/17 at 18:34; Status DC Magnesium Hydroxide (Milk Of Magnesia) 2,400 mg PRN DAILY PRN PO CONSTIPATION Last administered on 01/15/17 07:02; Start 01/14/17 at 18:00 Dronabinol (Marinol) 2.5 mg BIDACLD PO Last administered on 01/18/17 16:35; Start 01/17/17 at 11:30 Bupropion HCl (Wellbutrin Xl) 300 mg DAILY PO Last administered on 01/18/17 08 :16; Start 01/17/17 at 09:00 Quetiapine Fumarate (SEROquel) 12.5 mg BID92 PO Last administered on 01/18/17 14:17; Start 01/18/17 at 09:00; Stop 01/18/17 at 18:34; Status DC Quetiapine Fumarate (SEROquel) 12.5 mg TID@0900,1300,1700 PO ; Start 01/19/17 at 09:00 Active Scripts Active Reported Multivitamins (Multivitamin) 1 Each Tablet 1 Tab PO DAILY Zyprexa Zydis (Olanzapine) 5 Mg Tab.rapdis 2.5 Mg PO PRN Q2HR PRN Klor-Con 10 (Potassium Chloride) 10 Meq Tablet.er 1 Tab PO DAILY Polyethylene Glycol 3350 255 Gm Powder 17 Gm PO DAILY Norvasc (Amlodipine Besylate) 5 Mg Tablet 5 Mg PO BID Levothyroxine Sodium 100 Mcg Tablet 100 Mcg PO DAILYAC Furosemide 40 Mg Tablet 40 Mg PO DAILY Vitamin B-12 (Cyanocobalamin (Vitamin B-12)) 1,000 Mcg Tablet 1,000 Mcg PO DAILY Donepezil Hcl 5 Mg Tab.rapdis 5 Mg PO QHS Diagnosis: Problems: (1) Mental health disorder (2) Anxiety disorder (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
--- NOTE | 2017-01-18 22:31 | NUR ---
Behavior Intervention Response and Plan: BIRP Note: Behavior: Assumed Care of patient, patient located in Day Room at shift change. Patient exhibited the following behavior Restless, Disorganized, Compliant. Brief assessment on rounds of vital signs, medication needs, lab studies, and pain. Treatment plan problems Dementia w/ BD and Fall Risk. Intervention: Patient assessed and the following interventions initiated safety checks 15 Minute Checks Cognitive Assessment , Head to toe Assessment , Medications. Response: After interactions and interventions patient responded in the following manner, Calm , Disorganized ,Compliant. Continue to assess behaviors and condition will continue to monitor throughout the shift as needed. Patient educated on ADL's, and hand hygiene. Plan: Continue to monitor Master Treatment Plan for patient's progress toward short term goals of Decreased Aggression, Decreased Agitation, fpc goals to return to previous living setting vs placement. Continue to assess patient for changes in above assessment. Monitor for medication needs, pain, and safety concerns. Hourly rounding performed to ensure safe environment.
[2017-01-19 05:51] VITALS: BP 102/60
[2017-01-19] MEDS: buPROPion XL 150 MG TAB.ER.24H PO SCH (07:43)
[2017-01-19] MEDS: POLYETHYLENE GLYCOL 3350 17 GM PACKET. PO SCH (07:43)
[2017-01-19] MEDS: CYANOCOBALAMIN (VITAMIN B-12) 1,000 MCG TABLET. PO SCH (07:44)
[2017-01-19] MEDS: LEVOTHYROXINE 100 MCG TABLET PO SCH (07:44)
[2017-01-19] MEDS: FUROSEMIDE 20 MG TABLET PO SCH (07:44)
[2017-01-19] MEDS: POTASSIUM CHLORIDE 10 MEQ TABLET.ER. PO SCH (07:44)
[2017-01-19] MEDS: amLODIPine BESYLATE 5 MG TABLET PO SCH (07:45)
[2017-01-19] MEDS: QUEtiapine 25 MG TABLET. PO SCH ×3 (07:53→17:00)
--- NOTE | 2017-01-19 07:53 | PN ---
DATE: 01/17/2017 PSYCHIATRIC PROGRESS NOTE This late entry 01/17/2017 covers elements not covered in my initial note of 01/17/2017. I met with the patient evening of 01/17/2017. The patient remains confused. Appetite is poor, eating about 25%, gets anxious, was quite agitated in the morning. In the evening as I met with her, she was wanting to exit the doors, wanting to find her . REVIEW OF SYSTEMS: Ambulation impaired, in a wheelchair. No CV, , pulmonary, eye, ENT system symptoms on review. MENTAL STATUS EXAM: Oriented to herself. Insight, judgment, recent and remote memory, attention, concentration, fund of knowledge poor, consistent with her diagnosis mentioned in my initial note. PLAN: Continue current psychotropics. Start Seroquel 12.5 mg at 9:00 a.m. and 2 p.m. to help with mood lability and agitation, anxiety, quasi-psychotic symptoms. Reviewed drug contractions. Risk/benefit ratio favors no further change. Rest of the psychotropics will be continued for now. ARA VANCE MD DR: HUMPHREY/stacy JOB#: [id number] / [id number]
--- NOTE | 2017-01-19 08:34 | NUR ---
Behavior Intervention Response and Plan: BIRP Note: Behavior: Assumed Care of patient, patient located in Dining Room at shift change. Patient exhibited the following behavior Calm, Disorganized, Compliant. Brief assessment on rounds of vital signs, medication needs, lab studies, and pain. Treatment plan problems . Intervention: Patient assessed and the following interventions initiated safety checks 15 Minute Checks Cognitive Assessment , Head to toe Assessment , Medications. Response: After interactions and interventions patient responded in the following manner, Disorganized , Appropriate ,Withdrawn. Continue to assess behaviors and condition will continue to monitor throughout the shift as needed. Patient educated on ADL's, and hand hygiene. 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 Continue to assess patient for changes in above assessment. Monitor for medication needs, pain, and safety concerns. Hourly rounding performed to ensure safe environment.
--- NOTE | 2017-01-19 10:00 | NUR ---
THERAPEUTIC RECREATION GROUP NOTE TITLE :Ball Bounce and Daily Awareness ACTIVITY : Activities and Games GOAL : Increase alertness, focus, decrease stress DURATION : 60 minutes RESPONSE : Minimal participation. Pt. started with the group and bounced the ball a couple times. She left the group pretty early and did not return.
--- NOTE | 2017-01-19 11:30 | NUR ---
THERAPEUTIC RECREATION GROUP NOTE TITLE :Movement to Music: Flexibility ACTIVITY : Movement/ Exercise GOAL : Increase morale, attention, flexibility. Decrease stress/anxiety. DURATION : 30 Minutes RESPONSE : No participation. Pt. was alert and with the group the entire time but showed no interest.
[2017-01-19] MEDS: DRONABINOL 2.5 MG CAPSULE PO SCH ×2 (13:27→16:30)
--- NOTE | 2017-01-19 14:20 | NUR ---
THERAPEUTIC RECREATION GROUP NOTE TITLE :Bingo ACTIVITY : Activities and Games GOAL : Increase alertness, focus, morale, decrease stress, team building, positive communication DURATION : 50 Minutes RESPONSE : Minimal participation. Pt. started with the group and followed along for a few minutes before leaving and not returning.
[2017-01-19 16:38] VITALS: BP 136/88
--- NOTE | 2017-01-19 16:49 | NUR ---
pt up in for meals. has been compliant with meds and cares. declined working with therapy for very long as she stated she was too depressed.
[2017-01-19] MEDS: PRENATAL MULTIVITAMIN TABLET. PO SCH (17:00)
[2017-01-19] MEDS: MIRTAZAPINE 7.5 MG TABLET. PO SCH (19:56)
--- NOTE | 2017-01-19 20:37 | PDOC ---
Exam Liborio Demential Exam: Liborio Note: Please also refer to the separate dictated note~for this date of service dictated separately.~Patient seen individually. Discussed the patient with Nursing staff reviewed the chart.~Reviewed interim history and current functioning. Reviewed vital signs,~Labs/ Radiology~and current medications noted below. Continue current treatment with the changes noted in the dictated addendum note Assessment: Vital Signs: Vital Signs Date Time Temp Pulse Resp B/P (MAP) Pulse Ox O2 Delivery O2 Flow Rate FiO2 01/19/17 16:38 98.7 60 18 136/88 (104) 97 Room Air I&O Intake and Output 01/20/17 07:00 Intake Total 880 ml Balance 880 ml Intake Oral 880 ml Current Medications: Meds: Current Medications Amlodipine Besylate (Norvasc) 5 mg DAILY PO Last administered on 01/18/17 08: 16; Start 01/10/17 at 09:00 Cyanocobalamin (Vitamin B-12) 1,000 mcg DAILY PO Last administered on 07:44; Start 01/10/17 at 09:00 Furosemide (Lasix) 20 mg DAILY PO Last administered on 01/19/17 07:44; Start 01/10/17 at 09:00 Levothyroxine Sodium (Synthroid) 100 mcg DAILYAC PO Last administered on 07:44; Start 01/10/17 at 08:00 Polyethylene Glycol (miraLAX) 17 gm DAILY PO Last administered on 01/19/17 07: 43; Start 01/10/17 at 09:00 Multivitamins/ Calcium (Thera-M Plus) 1 tab DAILY PO Last administered on 07:35; Start 01/10/17 at 09:00; Stop 01/12/17 at 16:04; Status DC Potassium Chloride (Klor-Con) 10 meq DAILYWBKFT PO Last administered on 07:44; Start 01/10/17 at 08:00 Olanzapine (ZyPREXA ZYDIS) 2.5 mg PRN Q2HR PRN PO ANXIETY / AGITATION Last administered on 01/17/17 20:42; Start 01/10/17 at 18:45 Donepezil HCl (Aricept) 10 mg DAILY PO Last administered on 01/13/17 07:53; Start 01/11/17 at 09:00; Stop 01/13/17 at 18:43; Status DC Sertraline HCl (Zoloft) 25 mg DAILY PO ; Start 01/11/17 at 12:00; Stop 01/11/17 at 12:13; Status DC Sertraline HCl (Zoloft) 25 mg DAILY PO Last administered on 01/14/17 07:52; Start 01/12/17 at 09:00; Stop 01/14/17 at 17:42; Status DC Prenat Multivit/ [place]ef [place]us[place]/Iron/Folic Ac (Multivitamin ) 1 tab DAILYBFRSUP PO Last administered on 01/19/17 17:00; Start 01/11/17 at 17:00 Mirtazapine (Remeron) 7.5 mg QHS PO Last administered on 01/19/17 19:56; Start 01/13/17 at 21:00 Bupropion HCl (Wellbutrin Xl) 150 mg DAILY PO Last administered on 01/16/17 09 :04; Start 01/15/17 at 09:00; Stop 01/16/17 at 18:34; Status DC Magnesium Hydroxide (Milk Of Magnesia) 2,400 mg PRN DAILY PRN PO CONSTIPATION Last administered on 01/15/17 07:02; Start 01/14/17 at 18:00 Dronabinol (Marinol) 2.5 mg BIDACLD PO Last administered on 01/19/17 16:30; Start 01/17/17 at 11:30 Bupropion HCl (Wellbutrin Xl) 300 mg DAILY PO Last administered on 01/19/17 07 :43; Start 01/17/17 at 09:00 Quetiapine Fumarate (SEROquel) 12.5 mg BID92 PO Last administered on 01/18/17 14:17; Start 01/18/17 at 09:00; Stop 01/18/17 at 18:34; Status DC Quetiapine Fumarate (SEROquel) 12.5 mg TID@0900,1300,1700 PO Last administered on 01/19/17 17:00; Start 01/19/17 at 09:00 Active Scripts Active Reported Multivitamins (Multivitamin) 1 Each Tablet 1 Tab PO DAILY Zyprexa Zydis (Olanzapine) 5 Mg Tab.rapdis 2.5 Mg PO PRN Q2HR PRN Klor-Con 10 (Potassium Chloride) 10 Meq Tablet.er 1 Tab PO DAILY Polyethylene Glycol 3350 255 Gm Powder 17 Gm PO DAILY Norvasc (Amlodipine Besylate) 5 Mg Tablet 5 Mg PO BID Levothyroxine Sodium 100 Mcg Tablet 100 Mcg PO DAILYAC Furosemide 40 Mg Tablet 40 Mg PO DAILY Vitamin B-12 (Cyanocobalamin (Vitamin B-12)) 1,000 Mcg Tablet 1,000 Mcg PO DAILY Donepezil Hcl 5 Mg Tab.rapdis 5 Mg PO QHS Diagnosis: Problems: (1) Mental health disorder (2) Anxiety disorder (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
--- NOTE | 2017-01-20 02:10 | NUR ---
Behavior Intervention Response and Plan: BIRP Note: Behavior: Assumed Care of patient, patient located in Dining Room at shift change. Patient exhibited the following behavior Calm, Cooperative, Compliant. Brief assessment on rounds of vital signs, medication needs, lab studies, and pain. Treatment plan problems 1. Intervention: Patient assessed and the following interventions initiated safety checks 15 Minute Checks Cognitive Assessment , Head to toe Assessment , Medications. Response: After interactions and interventions patient responded in the following manner, Calm , Appropriate ,Withdrawn. Continue to assess behaviors and condition will continue to monitor throughout the shift as needed. Patient educated on ADL's, and hand hygiene. Plan: Continue to monitor Master Treatment Plan for patient's progress toward short term goals of Decreased Agitation, Decreased Aggression, group home goals to return to previous living setting vs placement. Continue to assess patient for changes in above assessment. Monitor for medication needs, pain, and safety concerns. Hourly rounding performed to ensure safe environment.
--- NOTE | 2017-01-20 04:17 | PN ---
DATE: 01/18/2017 This late entry for 01/18/2017 covers elements not covered in my initial note of 01/18/2017. SUBJECTIVE: The patient was staffed at treatment team meeting with the entire team morning of 01/18/2017. Seen individually evening of 01/18/2017, slept 4-1/2 hours previous evening. Appetite 40% or so, still somewhat poor. Her , Lars, attended the treatment team meeting where we discussed history, diagnosis, placement options, current medications. Per social service observation, there is a question whether the patient's has some memory deficits himself, but Social Service staff will keep this in mind as they discussed disposition options with the . The patient has been calm, withdrawn at times, gets agitated with cares in the evening, slept through breakfast, sleeps poorly at night, received Zyprexa at 1422 because she was agitated, combative the previous evening. REVIEW OF SYSTEMS: Ambulation impaired, in wheelchair. No CV, , pulmonary, eye, ENT system symptoms on review. MENTAL STATUS EXAM: Oriented to herself. Insight, judgment, recent and remote memory, attention, concentration, fund of knowledge poor, consistent with her diagnosis mentioned in my initial note. PLAN: Increase Seroquel from 12.5 mg twice a day to 12.5 mg 3 times a day. Maintain the rest of the psychotropics mentioned in my initial note. Reviewed drug interactions. Risk/benefit ratio favors no further change. ARA VANCE MD DR: HUMPHREY/stacy JOB#: [id number] / [id number]
[2017-01-20] MEDS: LEVOTHYROXINE 100 MCG TABLET PO SCH (06:02)
[2017-01-20 06:12] VITALS: BP 133/72
[2017-01-20] MEDS: POLYETHYLENE GLYCOL 3350 17 GM PACKET. PO SCH (08:01)
[2017-01-20] MEDS: POTASSIUM CHLORIDE 10 MEQ TABLET.ER. PO SCH (08:01)
[2017-01-20] MEDS: FUROSEMIDE 20 MG TABLET PO SCH (08:01)
[2017-01-20] MEDS: CYANOCOBALAMIN (VITAMIN B-12) 1,000 MCG TABLET. PO SCH (08:02)
[2017-01-20] MEDS: amLODIPine BESYLATE 5 MG TABLET PO SCH (08:02)
[2017-01-20] MEDS: buPROPion XL 150 MG TAB.ER.24H PO SCH (08:02)
[2017-01-20] MEDS: QUEtiapine 25 MG TABLET. PO SCH ×3 (08:02→16:52)
--- NOTE | 2017-01-20 10:28 | NUR ---
Behavior Intervention Response and Plan: BIRP Note: Behavior: Assumed Care of patient, patient located in Day Room at shift change. Patient exhibited the following behavior Calm, Disorganized, med compliant. Brief assessment on rounds of vital signs, medication needs, lab studies, and pain. Treatment plan problems 1-2. Intervention: Patient assessed and the following interventions initiated safety checks 15 Minute Checks Cognitive Assessment , Head to toe Assessment , Medications. Response: After interactions and interventions patient responded in the following manner, calm, appropriate, and Compliant. Continue to assess behaviors and condition will continue to monitor throughout the shift as needed. Patient educated on ADL's, and hand hygiene. Plan: Continue to monitor Master Treatment Plan for patient's progress toward short term goals of Improved Mood, Medication Compliance, prison goals to return to previous living setting vs placement. Continue to assess patient for changes in above assessment. Monitor for medication needs, pain, and safety concerns. Hourly rounding performed to ensure safe environment.
[2017-01-20] MEDS: DRONABINOL 2.5 MG CAPSULE PO SCH ×2 (11:58→16:51)
[2017-01-20 15:48] VITALS: BP 123/73
[2017-01-20] MEDS: PRENATAL MULTIVITAMIN TABLET. PO SCH (16:51)
[2017-01-20] MEDS: MIRTAZAPINE 7.5 MG TABLET. PO SCH (20:28)
--- NOTE | 2017-01-20 22:55 | PDOC ---
Exam Liborio Demential Exam: Liborio Note: Please also refer to the separate dictated note~for this date of service dictated separately.~Patient seen individually. Discussed the patient with Nursing staff reviewed the chart.~Reviewed interim history and current functioning. Reviewed vital signs,~Labs/ Radiology~and current medications noted below. Continue current treatment with the changes noted in the dictated addendum note Assessment: Vital Signs: Vital Signs Date Time Temp Pulse Resp B/P (MAP) Pulse Ox O2 Delivery O2 Flow Rate FiO2 01/20/17 15:48 97.2 85 20 123/73 (90) 94 01/19/17 16:38 Room Air I&O Intake and Output 01/21/17 07:00 Intake Total 600 ml Balance 600 ml Intake Oral 600 ml Current Medications: Meds: Current Medications Amlodipine Besylate (Norvasc) 5 mg DAILY PO Last administered on 01/20/17 08: 02; Start 01/10/17 at 09:00 Cyanocobalamin (Vitamin B-12) 1,000 mcg DAILY PO Last administered on 08:02; Start 01/10/17 at 09:00 Furosemide (Lasix) 20 mg DAILY PO Last administered on 01/20/17 08:01; Start 01/10/17 at 09:00 Levothyroxine Sodium (Synthroid) 100 mcg DAILYAC PO Last administered on 07:44; Start 01/10/17 at 08:00; Stop 01/19/17 at 23:39; Status DC Polyethylene Glycol (miraLAX) 17 gm DAILY PO Last administered on 01/20/17 08: 01; Start 01/10/17 at 09:00 Multivitamins/ Calcium (Thera-M Plus) 1 tab DAILY PO Last administered on 07:35; Start 01/10/17 at 09:00; Stop 01/12/17 at 16:04; Status DC Potassium Chloride (Klor-Con) 10 meq DAILYWBKFT PO Last administered on 08:01; Start 01/10/17 at 08:00 Olanzapine (ZyPREXA ZYDIS) 2.5 mg PRN Q2HR PRN PO ANXIETY / AGITATION Last administered on 01/17/17 20:42; Start 01/10/17 at 18:45 Donepezil HCl (Aricept) 10 mg DAILY PO Last administered on 01/13/17 07:53; Start 01/11/17 at 09:00; Stop 01/13/17 at 18:43; Status DC Sertraline HCl (Zoloft) 25 mg DAILY PO ; Start 01/11/17 at 12:00; Stop 01/11/17 at 12:13; Status DC Sertraline HCl (Zoloft) 25 mg DAILY PO Last administered on 01/14/17 07:52; Start 01/12/17 at 09:00; Stop 01/14/17 at 17:42; Status DC Prenat Multivit/ [place]/Iron/Folic Ac (Multivitamin ) 1 tab DAILYBFRSUP PO Last administered on 01/20/17 16:51; Start 01/11/17 at 17:00 Mirtazapine (Remeron) 7.5 mg QHS PO Last administered on 01/20/17 20:28; Start 01/13/17 at 21:00 Bupropion HCl (Wellbutrin Xl) 150 mg DAILY PO Last administered on 01/16/17 09 :04; Start 01/15/17 at 09:00; Stop 01/16/17 at 18:34; Status DC Magnesium Hydroxide (Milk Of Magnesia) 2,400 mg PRN DAILY PRN PO CONSTIPATION Last administered on 01/15/17 07:02; Start 01/14/17 at 18:00 Dronabinol (Marinol) 2.5 mg BIDACLD PO Last administered on 01/20/17 16:51; Start 01/17/17 at 11:30 Bupropion HCl (Wellbutrin Xl) 300 mg DAILY PO Last administered on 01/20/17 08 :02; Start 01/17/17 at 09:00 Quetiapine Fumarate (SEROquel) 12.5 mg BID92 PO Last administered on 01/18/17 14:17; Start 01/18/17 at 09:00; Stop 01/18/17 at 18:34; Status DC Quetiapine Fumarate (SEROquel) 12.5 mg TID@0900,1300,1700 PO Last administered on 01/20/17 16:52; Start 01/19/17 at 09:00 Levothyroxine Sodium (Synthroid) 100 mcg DAILY07 PO Last administered on t 06:02; Start 01/20/17 at 07:00 Active Scripts Active Reported Multivitamins (Multivitamin) 1 Each Tablet 1 Tab PO DAILY Zyprexa Zydis (Olanzapine) 5 Mg Tab.rapdis 2.5 Mg PO PRN Q2HR PRN Klor-Con 10 (Potassium Chloride) 10 Meq Tablet.er 1 Tab PO DAILY Polyethylene Glycol 3350 255 Gm Powder 17 Gm PO DAILY Norvasc (Amlodipine Besylate) 5 Mg Tablet 5 Mg PO BID Levothyroxine Sodium 100 Mcg Tablet 100 Mcg PO DAILYAC Furosemide 40 Mg Tablet 40 Mg PO DAILY Vitamin B-12 (Cyanocobalamin (Vitamin B-12)) 1,000 Mcg Tablet 1,000 Mcg PO DAILY Donepezil Hcl 5 Mg Tab.rapdis 5 Mg PO QHS Diagnosis: Problems: (1) Impulse control disorder (2) Dementia, vascular, with delusions (3) Dementia, vascular, with depression (4) Dementia in Alzheimer's disease with delusions (5) Dementia in Alzheimer's disease with depression (6) Anxiety disorder ARA VANCE MD Jan 20, 2017 22:55
--- NOTE | 2017-01-20 23:37 | NUR ---
Behavior Intervention Response and Plan: BIRP Note: Behavior: Assumed Care of patient, patient located in Day Room at shift change. Patient exhibited the following behavior Interactive, Calm, Able to Focus on Task. Brief assessment on rounds of vital signs, medication needs, lab studies, and pain. Treatment plan problems :1-2 Intervention: Patient assessed and the following interventions initiated safety checks 15 Minute Checks Cognitive Assessment , Head to toe Assessment , Medications. Response: After interactions and interventions patient responded in the following manner, Interactive , Disorganized ,Able to Focus on Task. Continue to assess behaviors and condition will continue to monitor throughout the shift as needed. Patient educated on ADL's, and hand hygiene. 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 Continue to assess patient for changes in above assessment. Monitor for medication needs, pain, and safety concerns. Hourly rounding performed to ensure safe environment.
[2017-01-21 05:52] VITALS: BP 110/72
[2017-01-21] MEDS: LEVOTHYROXINE 100 MCG TABLET PO SCH (06:05)
--- NOTE | 2017-01-21 06:24 | PN ---
DATE: 01/19/2017 PSYCHIATRIC PROGRESS NOTE This is a late entry for 01/19/2017, covers elements not covered in my initial note of 01/19/2017. SUBJECTIVE: I met with the patient the evening of 01/19/2017. She has been compliant with medications. Appetite is better, walked 3 steps, but seems depressed, withdrawn, wheels herself around the hallway. REVIEW OF SYSTEMS: Ambulation impaired, in a wheelchair. No CV, , pulmonary, eye, ENT system symptoms on review. MENTAL STATUS EXAM: Oriented to herself. Insight, judgment, recent and remote memory, attention, concentration, fund of knowledge poor, consistent with her diagnosis mentioned in my initial note. LABORATORY DATA: Reviewed. PLAN: Continue current psychotropics mentioned in my initial note. Reviewed drug interactions. Risk/benefit ratio favors no further change. MAN Sharif VANCE MD DR: HUMPHREY/stacy JOB#: [id number] / [id number]
[2017-01-21] MEDS: POTASSIUM CHLORIDE 10 MEQ TABLET.ER. PO SCH (08:06)
[2017-01-21] MEDS: FUROSEMIDE 20 MG TABLET PO SCH (08:07)
[2017-01-21] MEDS: POLYETHYLENE GLYCOL 3350 17 GM PACKET. PO SCH (08:07)
[2017-01-21] MEDS: CYANOCOBALAMIN (VITAMIN B-12) 1,000 MCG TABLET. PO SCH (08:10)
[2017-01-21] MEDS: QUEtiapine 25 MG TABLET. PO SCH ×3 (08:10→17:07)
--- NOTE | 2017-01-21 08:10 | NUR ---
during medication administration pt was irritable stating leave me alone, get out of here stating "Ill get up and whip your ass." Pt also called nurse a "bitch." Nurse redirected Pt and offered pt voluntary room time.
[2017-01-21] MEDS: buPROPion XL 150 MG TAB.ER.24H PO SCH (08:11)
[2017-01-21] MEDS: amLODIPine BESYLATE 5 MG TABLET PO SCH (10:00)
--- NOTE | 2017-01-21 10:03 | NUR ---
Behavior Intervention Response and Plan: BIRP Note: Behavior: Assumed Care of patient, patient located in Day Room at shift change. Patient exhibited the following behavior Calm, Disorganized, med compliant. Brief assessment on rounds of vital signs, medication needs, lab studies, and pain. Treatment plan problems 1-2. Intervention: Patient assessed and the following interventions initiated safety checks 15 Minute Checks Cognitive Assessment , Head to toe Assessment , Medications. Response: After interactions and interventions patient responded in the following manner, irritable first thing in the am, later calm and compliant. Continue to assess behaviors and condition will continue to monitor throughout the shift as needed. Patient educated on ADL's, and hand hygiene. 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 Continue to assess patient for changes in above assessment. Monitor for medication needs, pain, and safety concerns. Hourly rounding performed to ensure safe environment.
[2017-01-21] MEDS: DRONABINOL 2.5 MG CAPSULE PO SCH ×2 (12:25→17:07)
[2017-01-21 16:07] VITALS: BP 110/72
[2017-01-21] MEDS: PRENATAL MULTIVITAMIN TABLET. PO SCH (17:07)
[2017-01-21] MEDS: MIRTAZAPINE 7.5 MG TABLET. PO SCH (19:55)
--- NOTE | 2017-01-21 20:01 | PDOC ---
Exam Liborio Demential Exam: Liborio Note: Please also refer to the separate dictated note~for this date of service dictated separately.~Patient seen individually. Discussed the patient with Nursing staff reviewed the chart.~Reviewed interim history and current functioning. Reviewed vital signs,~Labs/ Radiology~and current medications noted below. Continue current treatment with the changes noted in the dictated addendum note Assessment: Vital Signs: Vital Signs Date Time Temp Pulse Resp B/P (MAP) Pulse Ox O2 Delivery O2 Flow Rate FiO2 01/21/17 16:07 97.9 88 16 110/72 (85) 98 01/19/17 16:38 Room Air I&O Intake and Output 01/22/17 07:00 Intake Total 240 ml Balance 240 ml Intake Oral 240 ml Current Medications: Meds: Current Medications Amlodipine Besylate (Norvasc) 5 mg DAILY PO Last administered on 01/20/17 08: 02; Start 01/10/17 at 09:00 Cyanocobalamin (Vitamin B-12) 1,000 mcg DAILY PO Last administered on 08:10; Start 01/10/17 at 09:00 Furosemide (Lasix) 20 mg DAILY PO Last administered on 01/21/17 08:07; Start 01/10/17 at 09:00 Levothyroxine Sodium (Synthroid) 100 mcg DAILYAC PO Last administered on 07:44; Start 01/10/17 at 08:00; Stop 01/19/17 at 23:39; Status DC Polyethylene Glycol (miraLAX) 17 gm DAILY PO Last administered on 01/21/17 08: 07; Start 01/10/17 at 09:00 Multivitamins/ Calcium (Thera-M Plus) 1 tab DAILY PO Last administered on 07:35; Start 01/10/17 at 09:00; Stop 01/12/17 at 16:04; Status DC Potassium Chloride (Klor-Con) 10 meq DAILYWBKFT PO Last administered on 08:06; Start 01/10/17 at 08:00 Olanzapine (ZyPREXA ZYDIS) 2.5 mg PRN Q2HR PRN PO ANXIETY / AGITATION Last administered on 01/17/17 20:42; Start 01/10/17 at 18:45 Donepezil HCl (Aricept) 10 mg DAILY PO Last administered on 01/13/17 07:53; Start 01/11/17 at 09:00; Stop 01/13/17 at 18:43; Status DC Sertraline HCl (Zoloft) 25 mg DAILY PO ; Start 01/11/17 at 12:00; Stop 01/11/17 at 12:13; Status DC Sertraline HCl (Zoloft) 25 mg DAILY PO Last administered on 01/14/17 07:52; Start 01/12/17 at 09:00; Stop 01/14/17 at 17:42; Status DC Prenat Multivit/ [place]/Iron/Folic Ac (Multivitamin ) 1 tab DAILYBFRSUP PO Last administered on 01/21/17 17:07; Start 01/11/17 at 17:00 Mirtazapine (Remeron) 7.5 mg QHS PO Last administered on 01/21/17 19:55; Start 01/13/17 at 21:00 Bupropion HCl (Wellbutrin Xl) 150 mg DAILY PO Last administered on 01/16/17 09 :04; Start 01/15/17 at 09:00; Stop 01/16/17 at 18:34; Status DC Magnesium Hydroxide (Milk Of Magnesia) 2,400 mg PRN DAILY PRN PO CONSTIPATION Last administered on 01/15/17 07:02; Start 01/14/17 at 18:00 Dronabinol (Marinol) 2.5 mg BIDACLD PO Last administered on 01/21/17 17:07; Start 01/17/17 at 11:30 Bupropion HCl (Wellbutrin Xl) 300 mg DAILY PO Last administered on 01/21/17 08 :11; Start 01/17/17 at 09:00 Quetiapine Fumarate (SEROquel) 12.5 mg BID92 PO Last administered on 01/18/17 14:17; Start 01/18/17 at 09:00; Stop 01/18/17 at 18:34; Status DC Quetiapine Fumarate (SEROquel) 12.5 mg TID@0900,1300,1700 PO Last administered on 01/21/17 17:07; Start 01/19/17 at 09:00; Stop 01/21/17 at 18:37; Status DC Levothyroxine Sodium (Synthroid) 100 mcg DAILY07 PO Last administered on t 06:05; Start 01/20/17 at 07:00; Stop 01/21/17 at 11:24; Status DC Levothyroxine Sodium (Synthroid) 100 mcg DAILY06 PO ; Start 01/22/17 at 06:00 Quetiapine Fumarate (SEROquel) 12.5 mg BIDWMEALS PO ; Start 01/22/17 at 08:00 Active Scripts Active Reported Multivitamins (Multivitamin) 1 Each Tablet 1 Tab PO DAILY Zyprexa Zydis (Olanzapine) 5 Mg Tab.rapdis 2.5 Mg PO PRN Q2HR PRN Klor-Con 10 (Potassium Chloride) 10 Meq Tablet.er 1 Tab PO DAILY Polyethylene Glycol 3350 255 Gm Powder 17 Gm PO DAILY Norvasc (Amlodipine Besylate) 5 Mg Tablet 5 Mg PO BID Levothyroxine Sodium 100 Mcg Tablet 100 Mcg PO DAILYAC Furosemide 40 Mg Tablet 40 Mg PO DAILY Vitamin B-12 (Cyanocobalamin (Vitamin B-12)) 1,000 Mcg Tablet 1,000 Mcg PO DAILY Donepezil Hcl 5 Mg Tab.rapdis 5 Mg PO QHS Diagnosis: Problems: (1) Mental health disorder (2) Anxiety disorder (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
--- NOTE | 2017-01-22 01:24 | PN ---
DATE: 01/20/2017 This late entry, 01/20/2017, covers elements not covered in my initial note of 01/20/2017. Met with the patient evening of 01/20/2017. Per nursing report, the patient remains confused, calm, cooperative, took her bedtime medications. REVIEW OF SYSTEMS: Ambulation impaired, in wheelchair. No CV, , pulmonary, eye, ENT system symptoms on review. Reliability poor. MENTAL STATUS EXAM: Oriented to herself. Insight, judgment, recent and remote memory, attention, concentration, fund of knowledge poor, consistent with her diagnosis mentioned in my initial note. LABORATORY DATA: Reviewed. IMPRESSION: Unchanged from initial note. PLAN: Continue psychotropics mentioned in my initial note. Reviewed drug interactions, risk/benefit ratio favors no further change. As of now, Seroquel was recently increased. MAN Sharif VANCE MD DR: HUMPHREY/stacy JOB#: [id number] / [id number]
[2017-01-22] MEDS: LEVOTHYROXINE 100 MCG TABLET PO SCH (05:43)
[2017-01-22 06:22] VITALS: BP 94/55
[2017-01-22 08:14] LABS: BASO % 1 % (0-3); EOS # 0.3 x10^3/uL (0.0-0.7); EOS % 7 % (0-3); HEMATOCRIT 24.8 % (36.0-47.0); HEMOGLOBIN 8.4 g/dL (12.0-15.5); LYMPH % 19 % (24-48); MEAN CORPUSCULAR HEMOGLOBIN 31 pg (25-35); MEAN CORPUSCULAR HGB CONC 34 g/dL (31-37); MEAN CORPUSCULAR VOLUME 91 fL (79-100); MONO # 0.8 x10^3/uL (0.0-1.1); MONO % 16 % (0-9); NEUT # 3.1 x10^3uL (1.8-7.7); NEUT % 58 % (31-73); PLATELET COUNT 158 x10^3/uL (140-400); RED BLOOD COUNT 2.73 x10^6/uL (3.50-5.40); RED CELL DISTRIBUTION WIDTH 14.4 % (11.5-14.5); WHITE BLOOD COUNT 5.3 x10^3/uL (4.0-11.0)
[2017-01-22] MEDS: POTASSIUM CHLORIDE 10 MEQ TABLET.ER. PO SCH (08:26)
[2017-01-22] MEDS: QUEtiapine 25 MG TABLET. PO SCH ×2 (08:39→17:00)
[2017-01-22] MEDS: buPROPion XL 150 MG TAB.ER.24H PO SCH (08:40)
[2017-01-22] MEDS: CYANOCOBALAMIN (VITAMIN B-12) 1,000 MCG TABLET. PO SCH (08:40)
[2017-01-22] MEDS: POLYETHYLENE GLYCOL 3350 17 GM PACKET. PO SCH (08:40)
[2017-01-22 08:43] VITALS: BP 113/73
[2017-01-22 08:43] LABS: ALBUMIN/GLOBULIN RATIO 0.8 (1.0-1.7); CALCIUM 8.2 mg/dL (8.5-10.1); CREATININE 2.5 mg/dL (0.6-1.0); GFR 18.6; POTASSIUM 4.2 mmol/L (3.5-5.1); TOTAL BILIRUBIN 0.5 mg/dL (0.2-1.0); TOTAL PROTEIN 6.8 g/dL (6.4-8.2)
[2017-01-22] MEDS: amLODIPine BESYLATE 5 MG TABLET PO SCH (09:00)
[2017-01-22] MEDS: FUROSEMIDE 20 MG TABLET PO SCH (09:00)
--- NOTE | 2017-01-22 10:00 | NUR ---
THERAPEUTIC RECREATION GROUP NOTE TITLE :Fall Festival Decoration ACTIVITY : Arts/ Crafts GOAL : Increase socialization, fine motor skills, creativity DURATION : 90 Minutes RESPONSE : No participation.
--- NOTE | 2017-01-22 10:15 | NUR ---
Behavior Intervention Response and Plan: BIRP Note: Behavior: Assumed Care of patient, patient located in Day Room at shift change. Patient exhibited the following behavior Calm, Disorganized, med compliant, confused. Brief assessment on rounds of vital signs, medication needs, lab studies, and pain. Treatment plan problems 1-2. Intervention: Patient assessed and the following interventions initiated safety checks 15 Minute Checks Cognitive Assessment , Head to toe Assessment , Medications. Response: After interactions and interventions patient responded in the following manner, calm, appropriate, and Compliant. Continue to assess behaviors and condition will continue to monitor throughout the shift as needed. Patient educated on ADL's, and hand hygiene. Plan: Continue to monitor Master Treatment Plan for patient's progress toward short term goals of Improved Mood, Medication Compliance, half-way goals to return to previous living setting vs placement. Continue to assess patient for changes in above assessment. Monitor for medication needs, pain, and safety concerns. Hourly rounding performed to ensure safe environment.
--- NOTE | 2017-01-22 11:30 | NUR ---
THERAPEUTIC RECREATION GROUP NOTE TITLE :Movement to Music: Flexibility ACTIVITY : Movement/ Exercise GOAL : Increase morale, attention, flexibility. Decrease stress/anxiety. DURATION : 30 Minutes RESPONSE : No participation.
[2017-01-22] MEDS: DRONABINOL 2.5 MG CAPSULE PO SCH ×2 (11:58→16:59)
--- NOTE | 2017-01-22 14:00 | NUR ---
THERAPEUTIC RECREATION GROUP NOTE TITLE :Picture Puzzles ACTIVITY : Cognitive Stimulation GOAL : Maintain or improve cognitive functioning and memory. DURATION : 60 Minutes RESPONSE : No participation.
--- NOTE | 2017-01-22 14:24 | NUR ---
Group Note [facility] Group Type Enthusiasm and Attitude Start Time: 1:10 End Time: 2:00pm Problem: Depression Purpose: Increase Motivation,increased positivity, socialization, elevate mood, express feelings, Level of Participation: Absent; pt refused to join. Behaviors or Symptoms Observed: Interventions: Reframing Response: Plan: Group Participation Additional Comments:
--- NOTE | 2017-01-22 14:39 | NUR ---
Group Note [facility] Group Type Enthusiasm and Attitude Start Time: 1:10 End Time: 2:00pm Problem: Depression Purpose: Increase Motivation,increased positivity, socialization, elevate mood, express feelings, Level of Participation: Absent, pt refused. Behaviors or Symptoms Observed: Interventions: Reframing Response: Plan: Group Participation Additional Comments:
[2017-01-22 16:22] VITALS: BP 144/89
[2017-01-22] MEDS: PRENATAL MULTIVITAMIN TABLET. PO SCH (17:00)
[2017-01-22] MEDS: MIRTAZAPINE 7.5 MG TABLET. PO SCH (19:23)
--- NOTE | 2017-01-22 19:56 | PDOC ---
Exam Liborio Demential Exam: Liborio Note: Please also refer to the separate dictated note~for this date of service dictated separately.~Patient seen individually. Discussed the patient with Nursing staff reviewed the chart.~Reviewed interim history and current functioning. Reviewed vital signs,~Labs/ Radiology~and current medications noted below. Continue current treatment with the changes noted in the dictated addendum note Assessment: Vital Signs: Vital Signs Date Time Temp Pulse Resp B/P (MAP) Pulse Ox O2 Delivery O2 Flow Rate FiO2 01/22/17 16:22 98.4 70 18 144/89 (107) 97 01/19/17 16:38 Room Air I&O Intake and Output 01/23/17 07:00 Intake Total 540 ml Balance 540 ml Intake Oral 540 ml Labs: Laboratory Tests Test 01/22/17 07:35 White Blood Count 5.3 x10^3/uL (4.0-11.0) Red Blood Count 2.73 x10^6/uL (3.50-5.40) L Hemoglobin 8.4 g/dL (12.0-15.5) L Hematocrit 24.8 % (36.0-47.0) L Mean Corpuscular Volume 91 fL (79-100) Mean Corpuscular Hemoglobin 31 pg (25-35) Mean Corpuscular Hemoglobin Concent 34 g/dL (31-37) Red Cell Distribution Width 14.4 % (11.5-14.5) Platelet Count 158 x10^3/uL (140-400) Neutrophils (%) (Auto) 58 % (31-73) Lymphocytes (%) (Auto) 19 % (24-48) L Monocytes (%) (Auto) 16 % (0-9) H Eosinophils (%) (Auto) 7 % (0-3) H Basophils (%) (Auto) 1 % (0-3) Neutrophils # (Auto) 3.1 x10^3uL (1.8-7.7) Lymphocytes # (Auto) 1.0 x10^3/uL (1.0-4.8) Monocytes # (Auto) 0.8 x10^3/uL (0.0-1.1) Eosinophils # (Auto) 0.3 x10^3/uL (0.0-0.7) Basophils # (Auto) 0.0 x10^3/uL (0.0-0.2) Sodium Level 143 mmol/L (136-145) Potassium Level 4.2 mmol/L (3.5-5.1) Chloride Level 106 mmol/L (98-107) Carbon Dioxide Level 28 mmol/L (21-32) Anion Gap 9 (6-14) Blood Urea Nitrogen 37 mg/dL (7-20) H Creatinine 2.5 mg/dL (0.6-1.0) H Estimated GFR (Cockcroft-Gault) 18.6 BUN/Creatinine Ratio 15 (6-20) Glucose Level 86 mg/dL (70-99) Calcium Level 8.2 mg/dL (8.5-10.1) L Total Bilirubin 0.5 mg/dL (0.2-1.0) Aspartate Amino Transferase (AST) 42 U/L (15-37) H Alanine Aminotransferase (ALT) 46 U/L (14-59) Alkaline Phosphatase 116 U/L (46-116) Total Protein 6.8 g/dL (6.4-8.2) Albumin 3.0 g/dL (3.4-5.0) L Albumin/Globulin Ratio 0.8 (1.0-1.7) L Current Medications: Meds: Current Medications Amlodipine Besylate (Norvasc) 5 mg DAILY PO Last administered on 01/20/17 08: 02; Start 01/10/17 at 09:00 Cyanocobalamin (Vitamin B-12) 1,000 mcg DAILY PO Last administered on 08:40; Start 01/10/17 at 09:00 Furosemide (Lasix) 20 mg DAILY PO Last administered on 01/21/17 08:07; Start 01/10/17 at 09:00 Levothyroxine Sodium (Synthroid) 100 mcg DAILYAC PO Last administered on 07:44; Start 01/10/17 at 08:00; Stop 01/19/17 at 23:39; Status DC Polyethylene Glycol (miraLAX) 17 gm DAILY PO Last administered on 01/22/17 08: 40; Start 01/10/17 at 09:00 Multivitamins/ Calcium (Thera-M Plus) 1 tab DAILY PO Last administered on 07:35; Start 01/10/17 at 09:00; Stop 01/12/17 at 16:04; Status DC Potassium Chloride (Klor-Con) 10 meq DAILYWBKFT PO Last administered on 08:26; Start 01/10/17 at 08:00 Olanzapine (ZyPREXA ZYDIS) 2.5 mg PRN Q2HR PRN PO ANXIETY / AGITATION Last administered on 01/17/17 20:42; Start 01/10/17 at 18:45 Donepezil HCl (Aricept) 10 mg DAILY PO Last administered on 01/13/17 07:53; Start 01/11/17 at 09:00; Stop 01/13/17 at 18:43; Status DC Sertraline HCl (Zoloft) 25 mg DAILY PO ; Start 01/11/17 at 12:00; Stop 01/11/17 at 12:13; Status DC Sertraline HCl (Zoloft) 25 mg DAILY PO Last administered on 01/14/17 07:52; Start 01/12/17 at 09:00; Stop 01/14/17 at 17:42; Status DC Prenat Multivit/ [place]/Iron/Folic Ac (Multivitamin ) 1 tab DAILYBFRSUP PO Last administered on 01/22/17 17:00; Start 01/11/17 at 17:00 Mirtazapine (Remeron) 7.5 mg QHS PO Last administered on 01/22/17 19:23; Start 01/13/17 at 21:00 Bupropion HCl (Wellbutrin Xl) 150 mg DAILY PO Last administered on 01/16/17 09 :04; Start 01/15/17 at 09:00; Stop 01/16/17 at 18:34; Status DC Magnesium Hydroxide (Milk Of Magnesia) 2,400 mg PRN DAILY PRN PO CONSTIPATION Last administered on 01/15/17 07:02; Start 01/14/17 at 18:00 Dronabinol (Marinol) 2.5 mg BIDACLD PO Last administered on 01/22/17 16:59; Start 01/17/17 at 11:30 Bupropion HCl (Wellbutrin Xl) 300 mg DAILY PO Last administered on 01/22/17 08 :40; Start 01/17/17 at 09:00 Quetiapine Fumarate (SEROquel) 12.5 mg BID92 PO Last administered on 01/18/17 14:17; Start 01/18/17 at 09:00; Stop 01/18/17 at 18:34; Status DC Quetiapine Fumarate (SEROquel) 12.5 mg TID@0900,1300,1700 PO Last administered on 01/21/17 17:07; Start 01/19/17 at 09:00; Stop 01/21/17 at 18:37; Status DC Levothyroxine Sodium (Synthroid) 100 mcg DAILY07 PO Last administered on 06:05; Start 01/20/17 at 07:00; Stop 01/21/17 at 11:24; Status DC Levothyroxine Sodium (Synthroid) 100 mcg DAILY06 PO Last administered on 05:43; Start 01/22/17 at 06:00 Quetiapine Fumarate (SEROquel) 12.5 mg BIDWMEALS PO Last administered on 17:00; Start 01/22/17 at 08:00 Active Scripts Active Reported Multivitamins (Multivitamin) 1 Each Tablet 1 Tab PO DAILY Zyprexa Zydis (Olanzapine) 5 Mg Tab.rapdis 2.5 Mg PO PRN Q2HR PRN Klor-Con 10 (Potassium Chloride) 10 Meq Tablet.er 1 Tab PO DAILY Polyethylene Glycol 3350 255 Gm Powder 17 Gm PO DAILY Norvasc (Amlodipine Besylate) 5 Mg Tablet 5 Mg PO BID Levothyroxine Sodium 100 Mcg Tablet 100 Mcg PO DAILYAC Furosemide 40 Mg Tablet 40 Mg PO DAILY Vitamin B-12 (Cyanocobalamin (Vitamin B-12)) 1,000 Mcg Tablet 1,000 Mcg PO DAILY Donepezil Hcl 5 Mg Tab.rapdis 5 Mg PO QHS Diagnosis: Problems: (1) Mental health disorder (2) Anxiety disorder (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
--- NOTE | 2017-01-22 20:02 | NUR ---
Behavior Intervention Response and Plan: BIRP Note: Behavior: Assumed Care of patient, patient located in Day Room at shift change. Patient exhibited the following behavior Calm, Withdrawn, Disorganized. Brief assessment on rounds of vital signs, medication needs, lab studies, and pain. Treatment plan problems . Intervention: Patient assessed and the following interventions initiated safety checks 15 Minute Checks Cognitive Assessment , Head to toe Assessment , Medications. Response: After interactions and interventions patient responded in the following manner, Compliant , Cooperative ,Calm. Continue to assess behaviors and condition will continue to monitor throughout the shift as needed. Patient educated on ADL's, and hand hygiene. Plan: Continue to monitor Master Treatment Plan for patient's progress toward short term goals of Decreased Aggression, Decreased Anxiety, penitentiary goals to return to previous living setting vs placement. Continue to assess patient for changes in above assessment. Monitor for medication needs, pain, and safety concerns. Hourly rounding performed to ensure safe environment.
[2017-01-23] MEDS: LEVOTHYROXINE 100 MCG TABLET PO SCH (04:53)
--- NOTE | 2017-01-23 05:38 | PN ---
DATE: 01/21/2017 This late entry for 01/21/2017 covers elements not covered in my initial note of 01/21/2017. SUBJECTIVE: I met with the patient in the evening of 01/21/2017. Overall, the patient remains confused, has been talking about "getting out of here with your ." She gets a little irritable, but redirects. Drowsy at times and we will stop 1 p.m. Seroquel 12.5 mg, continue the one at 0900 and 1700. REVIEW OF SYSTEMS: Ambulation impaired, in wheelchair. No CV, , pulmonary, eye, ENT, integumentary system symptoms on review. Reliability poor. MENTAL STATUS EXAM: Oriented to herself. Insight, judgment, recent and remote memory, attention, concentration, fund of knowledge poor, consistent with her diagnosis mentioned in my initial note. PLAN: Continue current psychotropics. Reviewed drug interactions. Risk/benefit ratio favors no further change at this time. ARA VANCE MD DR: HUMPHREY/stacy JOB#: [id number] / [id number]
[2017-01-23 06:03] VITALS: BP 127/83
[2017-01-23] MEDS: buPROPion XL 150 MG TAB.ER.24H PO SCH (08:46)
[2017-01-23] MEDS: PRENATAL MULTIVITAMIN TABLET. PO SCH (08:47)
[2017-01-23] MEDS: CYANOCOBALAMIN (VITAMIN B-12) 1,000 MCG TABLET. PO SCH (08:47)
[2017-01-23] MEDS: DRONABINOL 2.5 MG CAPSULE PO SCH ×2 (08:47→17:59)
[2017-01-23] MEDS: QUEtiapine 25 MG TABLET. PO SCH ×2 (08:48→17:59)
[2017-01-23] MEDS: POLYETHYLENE GLYCOL 3350 17 GM PACKET. PO SCH (08:49)
[2017-01-23] MEDS: POTASSIUM CHLORIDE 10 MEQ TABLET.ER. PO SCH (08:49)
[2017-01-23] MEDS: amLODIPine BESYLATE 5 MG TABLET PO SCH (08:49)
--- NOTE | 2017-01-23 10:30 | NUR ---
THERAPEUTIC RECREATION GROUP NOTE TITLE :40 Ways to Relax in 5 ACTIVITY : Relaxation GOAL : Decrease stress, elevate mood, increase concentration/attention, encourage awareness DURATION : 60 Minutes RESPONSE : Moderate participation. Pt. sat with the group the entire time. She actively listened most of the time and contribute to the conversation when directly prompted.
--- NOTE | 2017-01-23 10:43 | NUR ---
Behavior Intervention Response and Plan: BIRP Note: Behavior: Assumed Care of patient, patient located in Day Room at shift change. Patient exhibited the following behavior Calm, Resistive, Sarcastic. Brief assessment on rounds of vital signs, medication needs, lab studies, and pain. Treatment plan problems . Intervention: Patient assessed and the following interventions initiated safety checks 15 Minute Checks Cognitive Assessment , Head to toe Assessment , Medications. Response: After interactions and interventions patient responded in the following manner, Calm , Cooperative ,Interactive. Continue to assess behaviors and condition will continue to monitor throughout the shift as needed. Patient educated on ADL's, and hand hygiene. Plan: Continue to monitor Master Treatment Plan for patient's progress toward short term goals of Decreased Agitation, Decreased Aggression, long winder tender goals to return to previous living setting vs placement. Continue to assess patient for changes in above assessment. Monitor for medication needs, pain, and safety concerns. Hourly rounding performed to ensure safe environment.
--- NOTE | 2017-01-23 14:00 | NUR ---
THERAPEUTIC RECREATION GROUP NOTE TITLE :Sing along with Marie ACTIVITY : Music GOAL : Increase socialization, elevate mood, stimulate memory DURATION : 60 minutes RESPONSE : Full participation. Pt. was alert and engaged the entire time. She sang along and contributed to the discussion.
--- NOTE | 2017-01-23 14:18 | NUR ---
BETSY contacted Pt's /dpoa, Lars to discuss dc plans. At last week's treatment team mtg, Lars stated PT. would be returning to [facility] to complete her skilled stay. This was a surprise to BETSY as BESTY had just previously met w/Lars to complete the Medicaid application form and to discuss locations for LTC placement. Lars reported today to this BETSY he has been in contact w/Samantha who is SW at [facility] and they are prepared for PT. to return to them for completion of rehab and then will dc to "homecare". Lars also stated they have LTC there and that may be an option if "homecare" is not successful. BETSY stated [facility] has not contacted this SW w/follow up on LTC approval, which would be required if PT. stays beyond rehab. Lars was very confused as he spoke w/this SW and provided all 3 discharge plans to BETSY and thought the Medicaid form was the same as the [facility] form, which this SW had previously explained to Lars. Lars also stated another facility completed the Medicaid form when in fact this SW assisted Lars last week. BETSY closed conversation stating SW would contact Samantha at [facility] to further plan for dc.
--- NOTE | 2017-01-23 14:29 | NUR ---
SW contacted BETSY Singh at [facility] regarding dc plan. They will be accepting Pt. back to complete her skilled rehab. Samantha validated PT's 's confusion and will maintain contact w/this SW to ensure dc plans are completed smoothly. They will arrange for transportation at time of dc. SW to follow up w/clinical notes and target dc date on Sunday.
[2017-01-23 15:52] VITALS: BP 150/80
--- NOTE | 2017-01-23 19:51 | PDOC ---
Exam Liborio Demential Exam: Liborio Note: Please also refer to the separate dictated note~for this date of service dictated separately.~Patient seen individually. Discussed the patient with Nursing staff reviewed the chart.~Reviewed interim history and current functioning. Reviewed vital signs,~Labs/ Radiology~and current medications noted below. Continue current treatment with the changes noted in the dictated addendum note Assessment: Vital Signs: Vital Signs Date Time Temp Pulse Resp B/P (MAP) Pulse Ox O2 Delivery O2 Flow Rate FiO2 01/23/17 15:52 97.7 70 20 150/80 (103) 96 01/19/17 16:38 Room Air I&O Intake and Output 01/24/17 07:00 Intake Total 600 ml Balance 600 ml Intake Oral 600 ml Current Medications: Meds: Current Medications Amlodipine Besylate (Norvasc) 5 mg DAILY PO Last administered on 01/23/17 08: 49; Start 01/10/17 at 09:00 Cyanocobalamin (Vitamin B-12) 1,000 mcg DAILY PO Last administered on 08:47; Start 01/10/17 at 09:00 Furosemide (Lasix) 20 mg DAILY PO Last administered on 01/21/17 08:07; Start 01/10/17 at 09:00; Stop 01/23/17 at 07:40; Status DC Levothyroxine Sodium (Synthroid) 100 mcg DAILYAC PO Last administered on 07:44; Start 01/10/17 at 08:00; Stop 01/19/17 at 23:39; Status DC Polyethylene Glycol (miraLAX) 17 gm DAILY PO Last administered on 01/23/17 08: 49; Start 01/10/17 at 09:00 Multivitamins/ Calcium (Thera-M Plus) 1 tab DAILY PO Last administered on 07:35; Start 01/10/17 at 09:00; Stop 01/12/17 at 16:04; Status DC Potassium Chloride (Klor-Con) 10 meq DAILYWBKFT PO Last administered on 08:49; Start 01/10/17 at 08:00 Olanzapine (ZyPREXA ZYDIS) 2.5 mg PRN Q2HR PRN PO ANXIETY / AGITATION Last administered on 01/17/17 20:42; Start 01/10/17 at 18:45 Donepezil HCl (Aricept) 10 mg DAILY PO Last administered on 01/13/17 07:53; Start 01/11/17 at 09:00; Stop 01/13/17 at 18:43; Status DC Sertraline HCl (Zoloft) 25 mg DAILY PO ; Start 01/11/17 at 12:00; Stop 01/11/17 at 12:13; Status DC Sertraline HCl (Zoloft) 25 mg DAILY PO Last administered on 01/14/17 07:52; Start 01/12/17 at 09:00; Stop 01/14/17 at 17:42; Status DC Prenat Multivit/ [place]/Iron/Folic Ac (Multivitamin ) 1 tab DAILYBFRSUP PO Last administered on 01/23/17 08:47; Start 01/11/17 at 17:00 Mirtazapine (Remeron) 7.5 mg QHS PO Last administered on 01/22/17 19:23; Start 01/13/17 at 21:00 Bupropion HCl (Wellbutrin Xl) 150 mg DAILY PO Last administered on 01/16/17 09 :04; Start 01/15/17 at 09:00; Stop 01/16/17 at 18:34; Status DC Magnesium Hydroxide (Milk Of Magnesia) 2,400 mg PRN DAILY PRN PO CONSTIPATION Last administered on 01/15/17 07:02; Start 01/14/17 at 18:00 Dronabinol (Marinol) 2.5 mg BIDACLD PO Last administered on 01/23/17 17:59; Start 01/17/17 at 11:30 Bupropion HCl (Wellbutrin Xl) 300 mg DAILY PO Last administered on 01/23/17 08 :46; Start 01/17/17 at 09:00 Quetiapine Fumarate (SEROquel) 12.5 mg BID92 PO Last administered on 01/18/17 14:17; Start 01/18/17 at 09:00; Stop 01/18/17 at 18:34; Status DC Quetiapine Fumarate (SEROquel) 12.5 mg TID@0900,1300,1700 PO Last administered on 01/21/17 17:07; Start 01/19/17 at 09:00; Stop 01/21/17 at 18:37; Status DC Levothyroxine Sodium (Synthroid) 100 mcg DAILY07 PO Last administered on 06:05; Start 01/20/17 at 07:00; Stop 01/21/17 at 11:24; Status DC Levothyroxine Sodium (Synthroid) 100 mcg DAILY06 PO Last administered on 04:53; Start 01/22/17 at 06:00 Quetiapine Fumarate (SEROquel) 12.5 mg BIDWMEALS PO Last administered on 17:59; Start 01/22/17 at 08:00 Furosemide (Lasix) 10 mg DAILY PO ; Start 01/26/17 at 09:00; Stop 01/26/17 at 09 :00; Status DC Furosemide (Lasix) 10 mg DAILY PO ; Start 01/26/17 at 09:00 Active Scripts Active Reported Multivitamins (Multivitamin) 1 Each Tablet 1 Tab PO DAILY Zyprexa Zydis (Olanzapine) 5 Mg Tab.rapdis 2.5 Mg PO PRN Q2HR PRN Klor-Con 10 (Potassium Chloride) 10 Meq Tablet.er 1 Tab PO DAILY Polyethylene Glycol 3350 255 Gm Powder 17 Gm PO DAILY Norvasc (Amlodipine Besylate) 5 Mg Tablet 5 Mg PO BID Levothyroxine Sodium 100 Mcg Tablet 100 Mcg PO DAILYAC Furosemide 40 Mg Tablet 40 Mg PO DAILY Vitamin B-12 (Cyanocobalamin (Vitamin B-12)) 1,000 Mcg Tablet 1,000 Mcg PO DAILY Donepezil Hcl 5 Mg Tab.rapdis 5 Mg PO QHS Diagnosis: Problems: (1) Mental health disorder (2) Anxiety disorder (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
[2017-01-23] MEDS: MIRTAZAPINE 7.5 MG TABLET. PO SCH (20:44)
--- NOTE | 2017-01-23 20:44 | NUR ---
Behavior Intervention Response and Plan: BIRP Note: Behavior: Assumed Care of patient, patient located in Day Room at shift change. Patient exhibited the following behavior Calm, Social, Compliant. Brief assessment on rounds of vital signs, medication needs, lab studies, and pain. Treatment plan problems . Intervention: Patient assessed and the following interventions initiated safety checks 15 Minute Checks Cognitive Assessment , Head to toe Assessment , Medications. Response: After interactions and interventions patient responded in the following manner, Calm , Social ,Compliant. Continue to assess behaviors and condition will continue to monitor throughout the shift as needed. Patient educated on ADL's, and hand hygiene. 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 Continue to assess patient for changes in above assessment. Monitor for medication needs, pain, and safety concerns. Hourly rounding performed to ensure safe environment.
--- NOTE | 2017-01-24 05:22 | PN ---
DATE: 01/22/2017 PSYCHIATRIC PROGRESS NOTE This late entry 01/22/2017, covers elements not covered in my initial note of 01/22/2017. I met with the patient in the evening of 01/22/2017. Overall, the patient did well the previous evening, had a good day, has not been agitated, aggressive, not using mean words per nursing report. REVIEW OF SYSTEMS: Ambulation impaired, in a wheelchair. No CV, , pulmonary, eye system symptoms on review. MENTAL STATUS EXAM: Oriented to herself, insight and judgment, recent and remote memory, attention, concentration, fund of knowledge poor, consistent with her diagnosis mentioned in my initial note. PLAN: Continue current psychotropics, reviewed drug interactions, risk/benefit ratio favors no further change. We will consider transition to a lower level of care later this week. MAN Sharif VANCE MD DR: HUMPHREY/stacy JOB#: [id number] / [id number]
[2017-01-24 05:49] VITALS: BP 109/75
[2017-01-24] MEDS: LEVOTHYROXINE 100 MCG TABLET PO SCH (06:04)
[2017-01-24] MEDS: CYANOCOBALAMIN (VITAMIN B-12) 1,000 MCG TABLET. PO SCH (08:37)
[2017-01-24] MEDS: amLODIPine BESYLATE 5 MG TABLET PO SCH (08:37)
[2017-01-24] MEDS: POTASSIUM CHLORIDE 10 MEQ TABLET.ER. PO SCH (08:37)
[2017-01-24] MEDS: PRENATAL MULTIVITAMIN TABLET. PO SCH ×2 (08:37→17:01)
[2017-01-24] MEDS: buPROPion XL 150 MG TAB.ER.24H PO SCH (08:37)
[2017-01-24] MEDS: QUEtiapine 25 MG TABLET. PO SCH ×2 (08:38→17:02)
[2017-01-24] MEDS: POLYETHYLENE GLYCOL 3350 17 GM PACKET. PO SCH (08:38)
[2017-01-24] MEDS: DRONABINOL 2.5 MG CAPSULE PO SCH ×2 (08:40→17:08)
--- NOTE | 2017-01-24 10:15 | NUR ---
THERAPEUTIC RECREATION GROUP NOTE TITLE :Funny Videos and Jokes ACTIVITY : Humor GOAL : Decrease stress, elevate mood DURATION : 75 Minutes RESPONSE : Minimal participation. Pt. sat with the group the entire time; however, showed little interest on the topic. She smiled and laughed occasionally at several jokes.
--- NOTE | 2017-01-24 10:37 | NUR ---
Group Note [facility] Orientation Group Start Time: 9:05am End Time: 9:35am Problem: Anxiety Purpose: Reduction of Stress, Orientation, Reduction of Anxiety, Socializing Level of Participation: Absent; pt did not participate due to not feeling well. Behaviors or Symptoms Observed: Interventions: Clarification Response: Plan: Group Participation Additional Comments:
--- NOTE | 2017-01-24 14:10 | NUR ---
THERAPEUTIC RECREATION GROUP NOTE TITLE :What can we do ALONE, needs NO SUPPLIES, that's FUN, and RELAXING? ACTIVITY : Leisure Awareness GOAL : Increase knowledge of leisure activities DURATION : 60 Minutes RESPONSE : Full participation. Pt. was alert and engaged the entire time. She followed directions well, engaged in conversation and needed no prompting.
[2017-01-24 16:55] VITALS: BP 129/73
[2017-01-24] MEDS: MIRTAZAPINE 7.5 MG TABLET. PO SCH (20:57)
--- NOTE | 2017-01-24 21:20 | PDOC ---
Exam Liborio Demential Exam: Liborio Note: Please also refer to the separate dictated note~for this date of service dictated separately.~Patient seen individually. Discussed the patient with Nursing staff reviewed the chart.~Reviewed interim history and current functioning. Reviewed vital signs,~Labs/ Radiology~and current medications noted below. Continue current treatment with the changes noted in the dictated addendum note Assessment: Vital Signs: Vital Signs Date Time Temp Pulse Resp B/P (MAP) Pulse Ox O2 Delivery O2 Flow Rate FiO2 01/24/17 16:55 98.6 72 16 129/73 (91) 97 01/24/17 05:49 Room Air I&O Intake and Output 01/25/17 07:00 Intake Total 720 ml Balance 720 ml Intake Oral 720 ml # Bowel Movements 1 Current Medications: Meds: Current Medications Amlodipine Besylate (Norvasc) 5 mg DAILY PO Last administered on 01/24/17 08: 37; Start 01/10/17 at 09:00 Cyanocobalamin (Vitamin B-12) 1,000 mcg DAILY PO Last administered on 08:37; Start 01/10/17 at 09:00 Furosemide (Lasix) 20 mg DAILY PO Last administered on 01/21/17 08:07; Start 01/10/17 at 09:00; Stop 01/23/17 at 07:40; Status DC Levothyroxine Sodium (Synthroid) 100 mcg DAILYAC PO Last administered on 07:44; Start 01/10/17 at 08:00; Stop 01/19/17 at 23:39; Status DC Polyethylene Glycol (miraLAX) 17 gm DAILY PO Last administered on 01/24/17 08: 38; Start 01/10/17 at 09:00 Multivitamins/ Calcium (Thera-M Plus) 1 tab DAILY PO Last administered on 07:35; Start 01/10/17 at 09:00; Stop 01/12/17 at 16:04; Status DC Potassium Chloride (Klor-Con) 10 meq DAILYWBKFT PO Last administered on 08:37; Start 01/10/17 at 08:00 Olanzapine (ZyPREXA ZYDIS) 2.5 mg PRN Q2HR PRN PO ANXIETY / AGITATION Last administered on 01/17/17 20:42; Start 01/10/17 at 18:45 Donepezil HCl (Aricept) 10 mg DAILY PO Last administered on 01/13/17 07:53; Start 01/11/17 at 09:00; Stop 01/13/17 at 18:43; Status DC Sertraline HCl (Zoloft) 25 mg DAILY PO ; Start 01/11/17 at 12:00; Stop 01/11/17 at 12:13; Status DC Sertraline HCl (Zoloft) 25 mg DAILY PO Last administered on 01/14/17 07:52; Start 01/12/17 at 09:00; Stop 01/14/17 at 17:42; Status DC Prenat Multivit/ [place]/Iron/Folic Ac (Multivitamin ) 1 tab DAILYBFRSUP PO Last administered on 01/24/17 17:01; Start 01/11/17 at 17:00 Mirtazapine (Remeron) 7.5 mg QHS PO Last administered on 01/24/17 20:57; Start 01/13/17 at 21:00 Bupropion HCl (Wellbutrin Xl) 150 mg DAILY PO Last administered on 01/16/17 09 :04; Start 01/15/17 at 09:00; Stop 01/16/17 at 18:34; Status DC Magnesium Hydroxide (Milk Of Magnesia) 2,400 mg PRN DAILY PRN PO CONSTIPATION Last administered on 01/15/17 07:02; Start 01/14/17 at 18:00 Dronabinol (Marinol) 2.5 mg BIDACLD PO Last administered on 01/24/17 17:08; Start 01/17/17 at 11:30 Bupropion HCl (Wellbutrin Xl) 300 mg DAILY PO Last administered on 01/24/17 08 :37; Start 01/17/17 at 09:00 Quetiapine Fumarate (SEROquel) 12.5 mg BID92 PO Last administered on 01/18/17 14:17; Start 01/18/17 at 09:00; Stop 01/18/17 at 18:34; Status DC Quetiapine Fumarate (SEROquel) 12.5 mg TID@0900,1300,1700 PO Last administered on 01/21/17 17:07; Start 01/19/17 at 09:00; Stop 01/21/17 at 18:37; Status DC Levothyroxine Sodium (Synthroid) 100 mcg DAILY07 PO Last administered on 06:05; Start 01/20/17 at 07:00; Stop 01/21/17 at 11:24; Status DC Levothyroxine Sodium (Synthroid) 100 mcg DAILY06 PO Last administered on 06:04; Start 01/22/17 at 06:00 Quetiapine Fumarate (SEROquel) 12.5 mg BIDWMEALS PO Last administered on 17:02; Start 01/22/17 at 08:00 Furosemide (Lasix) 10 mg DAILY PO ; Start 01/26/17 at 09:00; Stop 01/26/17 at 09 :00; Status DC Furosemide (Lasix) 10 mg DAILY PO ; Start 01/26/17 at 09:00 Active Scripts Active Reported Multivitamins (Multivitamin) 1 Each Tablet 1 Tab PO DAILY Zyprexa Zydis (Olanzapine) 5 Mg Tab.rapdis 2.5 Mg PO PRN Q2HR PRN Klor-Con 10 (Potassium Chloride) 10 Meq Tablet.er 1 Tab PO DAILY Polyethylene Glycol 3350 255 Gm Powder 17 Gm PO DAILY Norvasc (Amlodipine Besylate) 5 Mg Tablet 5 Mg PO BID Levothyroxine Sodium 100 Mcg Tablet 100 Mcg PO DAILYAC Furosemide 40 Mg Tablet 40 Mg PO DAILY Vitamin B-12 (Cyanocobalamin (Vitamin B-12)) 1,000 Mcg Tablet 1,000 Mcg PO DAILY Donepezil Hcl 5 Mg Tab.rapdis 5 Mg PO QHS Diagnosis: Problems: (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
--- NOTE | 2017-01-25 05:26 | PN ---
DATE: 01/23/2017 This is a late entry for 01/23/2017 and covers the elements not covered in my initial note. SUBJECTIVE: The patient remains confused, somewhat flat, withdrawn, sarcastic at times, funny per nursing report, isolative, not aggressive. REVIEW OF SYSTEMS: Ambulation impaired, in a wheelchair. No CV, , pulmonary, eye system symptoms on review. MENTAL STATUS EXAM: Oriented to herself. Insight, judgment, recent and remote memory, attention, concentration, fund of knowledge poor, consistent with her diagnosis mentioned in my initial note. PLAN: Continue current psychotropics mentioned in my initial note. Reviewed drug interactions. Risk/benefit ratio favors no further change at this time. MAN Sharif VANCE MD DR: HUMPHREY/stacy JOB#: [id number] / [id number]
[2017-01-25] MEDS: LEVOTHYROXINE 100 MCG TABLET PO SCH (05:47)
[2017-01-25 06:04] VITALS: BP 107/67
--- NOTE | 2017-01-25 07:47 | NUR ---
SW faxed updated clinicals w/dc transport request for Sunday. SW will follow up w/Pt's once [facility] provides a cigar packer and picker time.
--- NOTE | 2017-01-25 07:51 | NUR ---
[facility] Social Work Discharge Planning Form Patient Name JOMAR ARANA Admit Date: 01/09/17 DISCHARGE PLAN Discharge Destination: return to [facility] Care Assessment: [place] [facility] sent to [facility] w/no final response yet Transportation: Facility to vegetable picker 01/26/17 DISCHARGE TO FACILITY Facility: [facility] Address: [facility] [address] [place] [address] Contact Name: Julia Singh PCP: at facility w/in 10-12 days of dc Psychiatrist: at facility w/in 10-12 days of dc
--- NOTE | 2017-01-25 08:00 | NUR ---
WEEKLY THERAPEUTIC RECREATION NOTE Date of Admission: 01/09/2017 Date of AT Assessment:01/12/2017 Goal aimed: to increase socialization and time management: Initial goal:Pt. will participate in at least two groups a day. Weekly progress towards goal: did not achieve. Pt. did not participate in any groups on 01/22/2017 Group participation level: Last couple days have been better, participating in most groups, more alert. Behaviors observed:Days before she was mostly withdrawn, tired, showing no interest. Plan: No changes to goal
[2017-01-25] MEDS: buPROPion XL 150 MG TAB.ER.24H PO SCH (08:04)
[2017-01-25] MEDS: amLODIPine BESYLATE 5 MG TABLET PO SCH (08:04)
[2017-01-25] MEDS: POLYETHYLENE GLYCOL 3350 17 GM PACKET. PO SCH (08:04)
[2017-01-25] MEDS: POTASSIUM CHLORIDE 10 MEQ TABLET.ER. PO SCH (08:05)
[2017-01-25] MEDS: CYANOCOBALAMIN (VITAMIN B-12) 1,000 MCG TABLET. PO SCH (08:05)
[2017-01-25] MEDS: QUEtiapine 25 MG TABLET. PO SCH ×2 (08:05→16:53)
--- NOTE | 2017-01-25 10:20 | NUR ---
Behavior Intervention Response and Plan: BIRP Note: Behavior: Assumed Care of patient, patient located in Day Room at shift change. Patient exhibited the following behavior Disorganized, Resistive, Withdrawn. Brief assessment on rounds of vital signs, medication needs, lab studies, and pain. Treatment plan problems 1 & 2. Intervention: Patient assessed and the following interventions initiated safety checks 15 Minute Checks Cognitive Assessment , Head to toe Assessment , Medications. Response: After interactions and interventions patient responded in the following manner, Calm , Appropriate ,Compliant. Continue to assess behaviors and condition will continue to monitor throughout the shift as needed. Patient educated on ADL's, and hand hygiene. 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 Continue to assess patient for changes in above assessment. Monitor for medication needs, pain, and safety concerns. Hourly rounding performed to ensure safe environment.
--- NOTE | 2017-01-25 10:45 | NUR ---
THERAPEUTIC RECREATION GROUP NOTE TITLE :Balloon/Pool Noodle ACTIVITY : Activities and Games GOAL : Increase alertness, focus, morale, decrease stress, team building, positive communication DURATION : 30 Minutes RESPONSE : Minimal participation. Pt. joined the group towards the end. She accepted a pool noodle to use and bumped the balloon a few time before losing interest.
--- NOTE | 2017-01-25 11:15 | NUR ---
THERAPEUTIC RECREATION GROUP NOTE TITLE :Movement to Music: Strength ACTIVITY : Movement/ Exercise GOAL : Increase morale, attention, flexibility. Decrease stress/anxiety. DURATION : 45 Minutes RESPONSE : Minimal participation. Pt. stated before group that she was not feeling well and she wouldn't participate. She did follow along with a couple moves.
[2017-01-25] MEDS: DRONABINOL 2.5 MG CAPSULE PO SCH ×2 (12:00→16:53)
--- NOTE | 2017-01-25 14:20 | NUR ---
THERAPEUTIC RECREATION GROUP NOTE TITLE :fallal: Apple Cider, Pumpkin Bread and Tin Can Painting ACTIVITY : Social Events/ Holidays GOAL : Facilitate sense of belonging and well-being, elevate mood, increase socialization. Incorporate traditions. DURATION : 80 Minutes RESPONSE : Full participation. Pt. was with the group the entire time. She enjoyed the treats and painted her tin can for a little while. She did not paint more, after being encouraged multiple times. She was calm the entire time.
--- NOTE | 2017-01-25 16:24 | NUR ---
BETSY contacted Julia at [facility] regarding dc plans for PT. Transportation has been arranged for 11. Julia had concerns w/PT's clinicals notes stating she requires 15 minute checks. BETSY explained that is our Facility policy for every Pt. on this unit. SW offered to share the policy guideline w/the facility as they have not worked w/[facility] previously and SW wanted to facilitate a building relationship. BETSY faxed policy for future reference. BETSY then contacted Pt's , Lars, to discuss dc plans. Lars was happy to hear Pt. was doing so much better and appreciated this BETSY calling to notify of dc plans for Sunday at 11.
[2017-01-25 16:34] VITALS: BP 132/85
[2017-01-25] MEDS: MIRTAZAPINE 7.5 MG TABLET. PO SCH (19:50)
--- NOTE | 2017-01-25 21:15 | PDOC ---
Exam Liborio Demential Exam: Liborio Note: Please also refer to the separate dictated note~for this date of service dictated separately.~Patient seen individually. Discussed the patient with Nursing staff reviewed the chart.~Reviewed interim history and current functioning. Reviewed vital signs,~Labs/ Radiology~and current medications noted below. Continue current treatment with the changes noted in the dictated addendum note Assessment: Vital Signs: Vital Signs Date Time Temp Pulse Resp B/P (MAP) Pulse Ox O2 Delivery O2 Flow Rate FiO2 01/25/17 16:34 97.9 67 17 132/85 (101) 97 01/24/17 05:49 Room Air I&O Intake and Output 01/26/17 07:00 Intake Total 780 ml Balance 780 ml Intake Oral 780 ml Current Medications: Meds: Current Medications Amlodipine Besylate (Norvasc) 5 mg DAILY PO Last administered on 01/25/17 08: 04; Start 01/10/17 at 09:00 Cyanocobalamin (Vitamin B-12) 1,000 mcg DAILY PO Last administered on 08:05; Start 01/10/17 at 09:00 Furosemide (Lasix) 20 mg DAILY PO Last administered on 01/21/17 08:07; Start 01/10/17 at 09:00; Stop 01/23/17 at 07:40; Status DC Levothyroxine Sodium (Synthroid) 100 mcg DAILYAC PO Last administered on 07:44; Start 01/10/17 at 08:00; Stop 01/19/17 at 23:39; Status DC Polyethylene Glycol (miraLAX) 17 gm DAILY PO Last administered on 01/25/17 08: 04; Start 01/10/17 at 09:00 Multivitamins/ Calcium (Thera-M Plus) 1 tab DAILY PO Last administered on 07:35; Start 01/10/17 at 09:00; Stop 01/12/17 at 16:04; Status DC Potassium Chloride (Klor-Con) 10 meq DAILYWBKFT PO Last administered on 08:05; Start 01/10/17 at 08:00 Olanzapine (ZyPREXA ZYDIS) 2.5 mg PRN Q2HR PRN PO ANXIETY / AGITATION Last administered on 01/17/17 20:42; Start 01/10/17 at 18:45 Donepezil HCl (Aricept) 10 mg DAILY PO Last administered on 01/13/17 07:53; Start 01/11/17 at 09:00; Stop 01/13/17 at 18:43; Status DC Sertraline HCl (Zoloft) 25 mg DAILY PO ; Start 01/11/17 at 12:00; Stop 01/11/17 at 12:13; Status DC Sertraline HCl (Zoloft) 25 mg DAILY PO Last administered on 01/14/17 07:52; Start 01/12/17 at 09:00; Stop 01/14/17 at 17:42; Status DC Prenat Multivit/ [place]/Iron/Folic Ac (Multivitamin ) 1 tab DAILYBFRSUP PO Last administered on 01/24/17 17:01; Start 01/11/17 at 17:00 Mirtazapine (Remeron) 7.5 mg QHS PO Last administered on 01/25/17 19:50; Start 01/13/17 at 21:00 Bupropion HCl (Wellbutrin Xl) 150 mg DAILY PO Last administered on 01/16/17 09 :04; Start 01/15/17 at 09:00; Stop 01/16/17 at 18:34; Status DC Magnesium Hydroxide (Milk Of Magnesia) 2,400 mg PRN DAILY PRN PO CONSTIPATION Last administered on 01/15/17 07:02; Start 01/14/17 at 18:00 Dronabinol (Marinol) 2.5 mg BIDACLD PO Last administered on 01/25/17 16:53; Start 01/17/17 at 11:30 Bupropion HCl (Wellbutrin Xl) 300 mg DAILY PO Last administered on 01/25/17 08 :04; Start 01/17/17 at 09:00 Quetiapine Fumarate (SEROquel) 12.5 mg BID92 PO Last administered on 01/18/17 14:17; Start 01/18/17 at 09:00; Stop 01/18/17 at 18:34; Status DC Quetiapine Fumarate (SEROquel) 12.5 mg TID@0900,1300,1700 PO Last administered on 01/21/17 17:07; Start 01/19/17 at 09:00; Stop 01/21/17 at 18:37; Status DC Levothyroxine Sodium (Synthroid) 100 mcg DAILY07 PO Last administered on 06:05; Start 01/20/17 at 07:00; Stop 01/21/17 at 11:24; Status DC Levothyroxine Sodium (Synthroid) 100 mcg DAILY06 PO Last administered on 05:47; Start 01/22/17 at 06:00 Quetiapine Fumarate (SEROquel) 12.5 mg BIDWMEALS PO Last administered on 16:53; Start 01/22/17 at 08:00 Furosemide (Lasix) 10 mg DAILY PO ; Start 01/26/17 at 09:00; Stop 01/26/17 at 09 :00; Status DC Furosemide (Lasix) 10 mg DAILY PO ; Start 01/26/17 at 09:00 Active Scripts Active Reported Multivitamins (Multivitamin) 1 Each Tablet 1 Tab PO DAILY Zyprexa Zydis (Olanzapine) 5 Mg Tab.rapdis 2.5 Mg PO PRN Q2HR PRN Klor-Con 10 (Potassium Chloride) 10 Meq Tablet.er 1 Tab PO DAILY Polyethylene Glycol 3350 255 Gm Powder 17 Gm PO DAILY Norvasc (Amlodipine Besylate) 5 Mg Tablet 5 Mg PO BID Levothyroxine Sodium 100 Mcg Tablet 100 Mcg PO DAILYAC Furosemide 40 Mg Tablet 40 Mg PO DAILY Vitamin B-12 (Cyanocobalamin (Vitamin B-12)) 1,000 Mcg Tablet 1,000 Mcg PO DAILY Donepezil Hcl 5 Mg Tab.rapdis 5 Mg PO QHS Diagnosis: Problems: (1) Mental health disorder (2) Anxiety disorder (3) Dementia in Alzheimer's disease with depression (4) Dementia in Alzheimer's disease with delusions (5) Dementia, vascular, with depression (6) Dementia, vascular, with delusions (7) Impulse control disorder ARA VANCE MD Jan 25, 2017 21:15
--- NOTE | 2017-01-25 23:06 | NUR ---
Behavior Intervention Response and Plan: BIRP Note: Behavior: Assumed Care of patient, patient located in Day Room at shift change. Patient exhibited the following behavior Calm, Social, Compliant. Brief assessment on rounds of vital signs, medication needs, lab studies, and pain. Treatment plan problems . Intervention: Patient assessed and the following interventions initiated safety checks 15 Minute Checks Cognitive Assessment , Head to toe Assessment , Medications. Response: After interactions and interventions patient responded in the following manner, Calm , Social ,Compliant. Continue to assess behaviors and condition will continue to monitor throughout the shift as needed. Patient educated on ADL's, and hand hygiene. 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 Continue to assess patient for changes in above assessment. Monitor for medication needs, pain, and safety concerns. Hourly rounding performed to ensure safe environment.
[2017-01-26] MEDS ORDERED: DRON2.5C2 PO (00:54)
[2017-01-26] MEDS ORDERED: FURO20TA3 PO (00:56)
[2017-01-26] MEDS ORDERED: MAGN400O7 PO (00:57)
[2017-01-26] MEDS ORDERED: PNV1TABL25 PO (00:58)
[2017-01-26] MEDS ORDERED: QUET25TA5 PO (01:01)
[2017-01-26] MEDS ORDERED: MIRT15TA3 PO (01:01)
[2017-01-26] MEDS ORDERED: BUPR300T4 PO (01:05)
--- NOTE | 2017-01-26 03:18 | PN ---
DATE: 01/24/2017 This late entry for 01/24/2017 covers elements not covered in my initial note of 01/24/2017. SUBJECTIVE: Per nursing report, the patient remains confused, calm, cooperative, social disorganized, frequently complains of feeling cold. She has been interacting more with others, which is an improvement. REVIEW OF SYSTEMS: Ambulation impaired, in a wheelchair, but deduced responses to review of systems symptom questions. No CV, , pulmonary, eye, ENT system symptoms. On review, reliability poor. MENTAL STATUS EXAMINATION: Oriented to herself. Insight, judgment, recent and remote memory, attention, concentration, fund of knowledge poor, consistent with her diagnosis mentioned in my initial note. PLAN: Continue current psychotropics, reviewed drug interactions, risk/benefit ratio favors no further change. MAN Sharif VANCE MD DR: HUMPHREY/stacy JOB#: [id number] / [id number]
[2017-01-26] MEDS: LEVOTHYROXINE 100 MCG TABLET PO SCH (05:28)
[2017-01-26 06:02] LABS: BASO % 1 % (0-3); EOS # 0.3 x10^3/uL (0.0-0.7); EOS % 6 % (0-3); HEMATOCRIT 23.8 % (36.0-47.0); HEMOGLOBIN 8.1 g/dL (12.0-15.5); LYMPH # 0.9 x10^3/uL (1.0-4.8); LYMPH % 17 % (24-48); MEAN CORPUSCULAR HEMOGLOBIN 31 pg (25-35); MEAN CORPUSCULAR HGB CONC 34 g/dL (31-37); MEAN CORPUSCULAR VOLUME 91 fL (79-100); MONO # 0.9 x10^3/uL (0.0-1.1); MONO % 17 % (0-9); NEUT # 3.1 x10^3uL (1.8-7.7); NEUT % 60 % (31-73); PLATELET COUNT 146 x10^3/uL (140-400); RED BLOOD COUNT 2.61 x10^6/uL (3.50-5.40); RED CELL DISTRIBUTION WIDTH 14.5 % (11.5-14.5); WHITE BLOOD COUNT 5.1 x10^3/uL (4.0-11.0)
[2017-01-26 06:09] VITALS: BP 91/56
[2017-01-26 06:14] LABS: ALBUMIN 2.8 g/dL (3.4-5.0); ALBUMIN/GLOBULIN RATIO 0.8 (1.0-1.7); CALCIUM 8.2 mg/dL (8.5-10.1); CREATININE 1.8 mg/dL (0.6-1.0); GFR 27.1; MAGNESIUM 2.3 mg/dL (1.8-2.4); POTASSIUM 4.4 mmol/L (3.5-5.1); TOTAL BILIRUBIN 0.4 mg/dL (0.2-1.0); TOTAL PROTEIN 6.5 g/dL (6.4-8.2)
[2017-01-26] MEDS: CYANOCOBALAMIN (VITAMIN B-12) 1,000 MCG TABLET. PO SCH (08:20)
[2017-01-26] MEDS: buPROPion XL 150 MG TAB.ER.24H PO SCH (08:20)
[2017-01-26] MEDS: QUEtiapine 25 MG TABLET. PO SCH (08:21)
[2017-01-26] MEDS: POTASSIUM CHLORIDE 10 MEQ TABLET.ER. PO SCH (08:21)
[2017-01-26] MEDS: POLYETHYLENE GLYCOL 3350 17 GM PACKET. PO SCH (08:22)
[2017-01-26] MEDS: amLODIPine BESYLATE 5 MG TABLET PO SCH ×2 (08:22→09:00)
[2017-01-26 09:00] VITALS: BP 91/56
[2017-01-26] MEDS ORDERED: FUROSEMIDE 20 MG TABLET PO SCH ×2 (09:00)
--- NOTE | 2017-01-26 09:30 | NUR ---
Behavior Intervention Response and Plan: BIRP Note: Behavior: Assumed Care of patient, patient located in Hallway at shift change. Patient exhibited the following behavior Withdrawn, Disorganized, Compliant. Brief assessment on rounds of vital signs, medication needs, lab studies, and pain. Treatment plan problems 1 & 2. Intervention: Patient assessed and the following interventions initiated safety checks 15 Minute Checks Cognitive Assessment , Head to toe Assessment , Medications. Response: After interactions and interventions patient responded in the following manner, Calm , Appropriate ,Compliant. Continue to assess behaviors and condition will continue to monitor throughout the shift as needed. Patient educated on ADL's, and hand hygiene. 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 Continue to assess patient for changes in above assessment. Monitor for medication needs, pain, and safety concerns. Hourly rounding performed to ensure safe environment.
[2017-01-26] MEDS: DRONABINOL 2.5 MG CAPSULE PO SCH (11:24)
--- NOTE | 2017-01-26 12:45 | NUR ---
Transition Record was faxed to follow-up provider with the following elements: Reason for admission, procedures, tests, principal diagnosis, pending studies, patient instructions, 27/11 contact information for unit, phone number to obtain pending test results, plan for follow-up care, physician follow-up, advanced directive information, and medication list with dose, duration and instructions. This information was included in the following documents: History and physical, lab results, study results, progress notes, social work planning form, DC instruction form, patient visit summary, and medication reconciliation form. Date & time record faxed: 09:52 22 JAN 21 Record faxed to: [facility]
--- NOTE | 2017-01-26 18:46 | PDOC ---
Exam Liborio Demential Exam: Liborio Note: Please also refer to the separate dictated note~for this date of service dictated separately.~Patient seen individually. Discussed the patient with Nursing staff reviewed the chart.~Reviewed interim history and current functioning. Reviewed vital signs,~Labs/ Radiology~and current medications noted below. Continue current treatment with the changes noted in the dictated addendum note Assessment: Vital Signs: Vital Signs Date Time Temp Pulse Resp B/P (MAP) Pulse Ox O2 Delivery O2 Flow Rate FiO2 01/26/17 09:00 77 91/56 01/26/17 06:09 98.4 20 93 01/24/17 05:49 Room Air I&O Intake and Output 01/27/17 07:00 Intake Total 120 ml Balance 120 ml Intake Oral 120 ml Labs: Laboratory Tests Test 01/26/17 05:49 White Blood Count 5.1 x10^3/uL (4.0-11.0) Red Blood Count 2.61 x10^6/uL (3.50-5.40) L Hemoglobin 8.1 g/dL (12.0-15.5) L Hematocrit 23.8 % (36.0-47.0) L Mean Corpuscular Volume 91 fL (79-100) Mean Corpuscular Hemoglobin 31 pg (25-35) Mean Corpuscular Hemoglobin Concent 34 g/dL (31-37) Red Cell Distribution Width 14.5 % (11.5-14.5) Platelet Count 146 x10^3/uL (140-400) Neutrophils (%) (Auto) 60 % (31-73) Lymphocytes (%) (Auto) 17 % (24-48) L Monocytes (%) (Auto) 17 % (0-9) H Eosinophils (%) (Auto) 6 % (0-3) H Basophils (%) (Auto) 1 % (0-3) Neutrophils # (Auto) 3.1 x10^3uL (1.8-7.7) Lymphocytes # (Auto) 0.9 x10^3/uL (1.0-4.8) L Monocytes # (Auto) 0.9 x10^3/uL (0.0-1.1) Eosinophils # (Auto) 0.3 x10^3/uL (0.0-0.7) Basophils # (Auto) 0.0 x10^3/uL (0.0-0.2) Sodium Level 139 mmol/L (136-145) Potassium Level 4.4 mmol/L (3.5-5.1) Chloride Level 106 mmol/L (98-107) Carbon Dioxide Level 29 mmol/L (21-32) Anion Gap 4 (6-14) L Blood Urea Nitrogen 24 mg/dL (7-20) H Creatinine 1.8 mg/dL (0.6-1.0) H Estimated GFR (Cockcroft-Gault) 27.1 BUN/Creatinine Ratio 13 (6-20) Glucose Level 83 mg/dL (70-99) Calcium Level 8.2 mg/dL (8.5-10.1) L Magnesium Level 2.3 mg/dL (1.8-2.4) Total Bilirubin 0.4 mg/dL (0.2-1.0) Aspartate Amino Transferase (AST) 16 U/L (15-37) Alanine Aminotransferase (ALT) 25 U/L (14-59) Alkaline Phosphatase 97 U/L (46-116) Total Protein 6.5 g/dL (6.4-8.2) Albumin 2.8 g/dL (3.4-5.0) L Albumin/Globulin Ratio 0.8 (1.0-1.7) L Current Medications: Meds: Current Medications Amlodipine Besylate (Norvasc) 5 mg DAILY PO Last administered on 01/25/17 08: 04; Start 01/10/17 at 09:00; Stop 01/26/17 at 12:50; Status DC Cyanocobalamin (Vitamin B-12) 1,000 mcg DAILY PO Last administered on 08:20; Start 01/10/17 at 09:00; Stop 01/26/17 at 12:50; Status DC Furosemide (Lasix) 20 mg DAILY PO Last administered on 01/21/17 08:07; Start 01/10/17 at 09:00; Stop 01/23/17 at 07:40; Status DC Levothyroxine Sodium (Synthroid) 100 mcg DAILYAC PO Last administered on 07:44; Start 01/10/17 at 08:00; Stop 01/19/17 at 23:39; Status DC Polyethylene Glycol (miraLAX) 17 gm DAILY PO Last administered on 01/26/17 08: 22; Start 01/10/17 at 09:00; Stop 01/26/17 at 12:50; Status DC Multivitamins/ Calcium (Thera-M Plus) 1 tab DAILY PO Last administered on 07:35; Start 01/10/17 at 09:00; Stop 01/12/17 at 16:04; Status DC Potassium Chloride (Klor-Con) 10 meq DAILYWBKFT PO Last administered on 08:21; Start 01/10/17 at 08:00; Stop 01/26/17 at 12:50; Status DC Olanzapine (ZyPREXA ZYDIS) 2.5 mg PRN Q2HR PRN PO ANXIETY / AGITATION Last administered on 01/17/17 20:42; Start 01/10/17 at 18:45; Stop 01/26/17 at 12:50 ; Status DC Donepezil HCl (Aricept) 10 mg DAILY PO Last administered on 01/13/17 07:53; Start 01/11/17 at 09:00; Stop 01/13/17 at 18:43; Status DC Sertraline HCl (Zoloft) 25 mg DAILY PO ; Start 01/11/17 at 12:00; Stop 01/11/17 at 12:13; Status DC Sertraline HCl (Zoloft) 25 mg DAILY PO Last administered on 01/14/17 07:52; Start 01/12/17 at 09:00; Stop 01/14/17 at 17:42; Status DC Prenat Multivit/ Solid [employer]/Iron/Folic Ac (Multivitamin ) 1 tab DAILYBFRSUP PO Last administered on 01/24/17 17:01; Start 01/11/17 at 17:00; Stop 01/26/17 at 12:50; Status DC Mirtazapine (Remeron) 7.5 mg QHS PO Last administered on 01/25/17 19:50; Start 01/13/17 at 21:00; Stop 01/26/17 at 12:50; Status DC Bupropion HCl (Wellbutrin Xl) 150 mg DAILY PO Last administered on 01/16/17 09 :04; Start 01/15/17 at 09:00; Stop 01/16/17 at 18:34; Status DC Magnesium Hydroxide (Milk Of Magnesia) 2,400 mg PRN DAILY PRN PO CONSTIPATION Last administered on 01/15/17 07:02; Start 01/14/17 at 18:00; Stop 01/26/17 at 12:50; Status DC Dronabinol (Marinol) 2.5 mg BIDACLD PO Last administered on 01/26/17 11:24; Start 01/17/17 at 11:30; Stop 01/26/17 at 12:50; Status DC Bupropion HCl (Wellbutrin Xl) 300 mg DAILY PO Last administered on 01/26/17 08 :20; Start 01/17/17 at 09:00; Stop 01/26/17 at 12:50; Status DC Quetiapine Fumarate (SEROquel) 12.5 mg BID92 PO Last administered on 01/18/17 14:17; Start 01/18/17 at 09:00; Stop 01/18/17 at 18:34; Status DC Quetiapine Fumarate (SEROquel) 12.5 mg TID@0900,1300,1700 PO Last administered on 01/21/17 17:07; Start 01/19/17 at 09:00; Stop 01/21/17 at 18:37; Status DC Levothyroxine Sodium (Synthroid) 100 mcg DAILY07 PO Last administered on 06:05; Start 01/20/17 at 07:00; Stop 01/21/17 at 11:24; Status DC Levothyroxine Sodium (Synthroid) 100 mcg DAILY06 PO Last administered on 05:28; Start 01/22/17 at 06:00; Stop 01/26/17 at 12:50; Status DC Quetiapine Fumarate (SEROquel) 12.5 mg BIDWMEALS PO Last administered on 08:21; Start 01/22/17 at 08:00; Stop 01/26/17 at 12:50; Status DC Furosemide (Lasix) 10 mg DAILY PO ; Start 01/26/17 at 09:00; Stop 01/26/17 at 09 :00; Status DC Furosemide (Lasix) 10 mg DAILY PO ; Start 01/26/17 at 09:00; Stop 01/26/17 at 12 :50; Status DC Active Scripts Active Reported Bupropion Xl (Bupropion Hcl) 300 Mg Tab.er.24h 300 Mg PO DAILY Seroquel (Quetiapine Fumarate) 25 Mg Tablet 12.5 Mg PO BIDWMEALS Mirtazapine 15 Mg Tablet 7.5 Mg PO QHS Tablet (Pnv Cmb#95/Ferrous Fumarate/Fa) 1 Each Tablet 1 Tab PO DAILYBFRSUP Milk Of Magnesia (Magnesium Hydroxide) 400 Mg/5 Ml Oral.susp 30 Ml PO PRN DAILY PRN Furosemide 20 Mg Tablet 10 Mg PO DAILY Dronabinol 2.5 Mg Capsule 2.5 Mg PO BIDACLD Zyprexa Zydis (Olanzapine) 5 Mg Tab.rapdis 2.5 Mg PO PRN Q2HR PRN Klor-Con 10 (Potassium Chloride) 10 Meq Tablet.er 1 Tab PO DAILY Polyethylene Glycol 3350 255 Gm Powder 17 Gm PO DAILY Norvasc (Amlodipine Besylate) 5 Mg Tablet 5 Mg PO BID Levothyroxine Sodium 100 Mcg Tablet 100 Mcg PO DAILYAC Vitamin B-12 (Cyanocobalamin (Vitamin B-12)) 1,000 Mcg Tablet 1,000 Mcg PO DAILY Diagnosis: Problems: (1) Impulse control disorder (2) Dementia, vascular, with delusions (3) Dementia, vascular, 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
--- NOTE | 2017-01-27 01:47 | PN ---
DATE: 01/25/2017 PSYCHIATRIC PROGRESS NOTE This late entry of 01/25/2017 covers elements not covered in my initial note of 01/25/2017. SUBJECTIVE: The patient was staffed at a treatment team meeting morning of 01/25/2017, seen individually evening of 01/25/2017. Reviewed the patient's history overall. Oral intake is poor. She remains confused. Complains of feeling cold. REVIEW OF SYSTEMS: Ambulation impaired, in a wheelchair. No CV, , pulmonary, eye, ENT system symptoms on review. MENTAL STATUS EXAM: Oriented to herself. Insight, judgment, recent and remote memory, attention, concentration, fund of knowledge poor, consistent with her diagnosis. LABORATORY DATA: Reviewed. IMPRESSION: Unchanged from initial note. PLAN: Continue current psychotropics. Reviewed drug interactions. Risk/benefit ratio favors no further change. Transition to a lower level of care in the next day or two. ARA VANCE MD DR: HUMPHREY/stacy JOB#: [id number] / [id number]
--- NOTE | 2017-01-27 09:54 | DS ---
DATE OF DISCHARGE: 01/26/2017 DISCHARGE SUMMARY/PSYCHIATRIC PROGRESS NOTE REASON FOR ADMISSION: Please refer to the admission history for details. Briefly, the patient is a 81-year-old female referred from [facility] by her primary care physician on account of increasing agitation, confusion, attempting to elope from the facility, becoming aggressive towards staff and redirected, attempting to hit, scratch staff members, spitting on staff members, uncooperative, refusing meals, demanding. She had failed outpatient psychiatric interventions in the context of her dementia, Alzheimer's, vascular with depression, delusion, behavioral disturbance and failure of outpatient psychiatric intervention. SIGNIFICANT FINDINGS AND CLINICAL COURSE: Following admission, the patient was seen daily individually by myself, followed medically per Dr. Martino/Dr. Hicks. She is extremely confused, paranoid, anxious, restless, constantly moving. Adjustments were made in her psychotropics and she seemed to respond to a combination of Seroquel 12.5 mg at 9:00 a.m. and 5:00 p.m., Wellbutrin XL 300 mg a day as an antidepressant given her daytime sedation and Remeron 7.5 mg at bedtime together with Zyprexa p.r.n. prior to discharge on 01/26/2017. REVIEW OF SYSTEMS: Ambulation impaired, in wheelchair. No CV, , pulmonary, eye, ENT system symptoms on review. Reliability poor. MENTAL STATUS EXAM: Oriented to herself. Insight, judgment, recent and remote memory, attention, concentration, fund of knowledge poor, consistent with her diagnoses. CONDITION AT DISCHARGE: Improved. No suicidal or homicidal ideation at discharge. FINAL DIAGNOSES: Major neurocognitive disorder, Alzheimer, vascular with depression, delusion, behavioral disturbance; anxiety disorder, unspecified; impulse control disorder, unspecified. Rest diagnoses unchanged from admission. DISCHARGE MEDICATIONS: Please refer to the MRAD. DISCHARGE INSTRUCTIONS: Outpatient psychiatric and medical followup at the senior care. Time for discharge day management greater than 30 minutes. ARA VANCE MD DR: HUMPHREY/stacy JOB#: [id number] / [id number]
== END 2017-01-26 12:45 | disposition home or self-care (01) | DRG 884 ==
LOC: ER 20:20 → GEROPSY 22:25 → EDSEX 22:25
PROVIDERS: ADMIT Psychiatry & Neurology Psychiatry; ATTEND Psychiatry & Neurology Psychiatry
DX: F01.51 Vascular dementia, unspecified severity, with behavioral disturbance (principal); G30.9 Alzheimer's disease, unspecified; F02.81 Dementia in other diseases classified elsewhere, unspecified severity, with behavioral disturbance; N18.3 Chronic kidney disease, stage 3 (moderate); I45.81 Long QT syndrome; D50.9 Iron deficiency anemia, unspecified; E03.9 Hypothyroidism, unspecified; E78.5 Hyperlipidemia, unspecified; F32.9 Major depressive disorder, single episode, unspecified; F41.9 Anxiety disorder, unspecified; F63.9 Impulse disorder, unspecified; G47.33 Obstructive sleep apnea (adult) (pediatric); I12.9 Hypertensive chronic kidney disease with stage 1 through stage 4 chronic kidney disease, or unspecified chronic kidney disease; I25.10 Atherosclerotic heart disease of native coronary artery without angina pectoris; M19.90 Unspecified osteoarthritis, unspecified site; K59.09 Other constipation; Z83.3 Family history of diabetes mellitus; Z85.3 Personal history of malignant neoplasm of breast; Z86.73 Personal history of transient ischemic attack (TIA), and cerebral infarction without residual deficits; Z91.81 History of falling; Z88.8 Allergy status to other drugs, medicaments and biological substances; Z87.81 Personal history of (healed) traumatic fracture
CPT/HCPCS: 36415; 80053; 80061; 81001; 82306; 82607; 83036; 83540; 83550; 83735; 85025; 92526; 93005; Q0167; 92610; 97110; 97116; 97530; 97535; 99285-25